=== PATIENT | female | born 1945 | race Caucasian/White ===

== ENCOUNTER 2016-03-03 13:41 | Emergency (ER) | payer MEDICARE, OTHER ==
[~2016-03-03] VITALS: Ht 165.1 cm; Wt 132.0 kg
[~2016-03-03 13:41] MED LIST: ALLO100T PO; ALLP100T PO; AML2.5T PO; AMLO2.5T PO; AMLO5TAB2 PO; APIX2.5T PO; ASP81CT PO; ASPI-983 PO; ATEN-158 PO; ATEN50TA PO; ATN25T PO; CALC0.253 PO; CEFD300C3 PO; CETI10TA17 PO; CHOL10003 PO; CHOL10007 PO; CHOL2000 PO; CITA20TA12 PO; CITA20TA7 PO; CLOP75TA28 PO; CLPD75T; CLPD75T PO; DCS100C PO; ENAL2.5T PO; ENAL5TAB PO; ENLP10T PO; ERGO400C PO; FURO40TA4 PO; GLIM4TAB PO; HUM100VI SQ; HYDR-3004 PO; HYDR-3156 PO; HYDR-3583 PO; HYDR-3812 PO; HYDR-3816 PO; HYDR-707 PO; INSASP10V SC; INSASP10V SQ; INSN1U SQ; INSU100C7 SQ; INSU100V SQ; INSU100V3 SQ; INSU100V31 SQ; INSU100V6 SQ; INSU100V8; ISM30TCR PO; LEVO125T6 PO; LEVO150T6 PO; LVT.15T PO; METO-354 PO; METO5TAB2 PO; MONT10TA24 PO; MTF500T; MTF500T PO; NFMET1000; NIA500ERT PO; NITR0.4T SL; NITR0.4T12 SL; NPH,100V SQ; ONDA8TAB9 PO; PANT40TA3 PO; PNT40TEC PO; RT-ALBUINH IH; SIMV40TA2 PO; SIMV40TA4 PO; SULF1TAB35 PO; VITA1TAB17 PO; WRF5T PO
--- OUTSIDE RECORDS SUMMARY | 2016-03-03 13:47 | XMS REPORT | Continuity of Care Document ---
Author Author [facility] Organization [facility] Address Unknown Phone Unavailable Care Team Providers Care Gas Station Operator Name Role Phone PHIL MONTALVO MD PCP Insurance Providers Payer Name Policy Number Subscriber Name Relationship Wps Medicare [id number] Mae Willson 18 Self / Same As Patient [employer] Ins [id number] Mae Willson 18 Self / Same As Patient Advance Directives Directive Response Recorded Date/Time Advance Directives Yes 07/26/15 4:54pm Health Care Power of Linotype Machinist Apprentice No 07/26/15 4:54pm Organ Donor No 07/26/15 4:54pm Resuscitation Status DNR-Pt Request 07/26/15 4:54pm Chief Complaint and Reason for Visit Chief Complaint CHEST PAIN Reason for Visit Infected sebaceous cyst Intermittent atrial fibrillation Problems Active Problems Medical Problem Onset Date Status CKD (chronic kidney disease) 05/04/2014 Acute Cellulitis of labia majora Unknown Acute Chest pain Unknown Acute Encounter for incision and drainage procedure Unknown Acute Fracture of fifth metatarsal bone of left foot Unknown Acute Infected sebaceous cyst Unknown Acute Intermittent atrial fibrillation Unknown Acute Medications Current Home Medications Medication Dose Units Route Directions Days/Qty Instructions Start Date Docusate Sodium 100 Mg 100 Mg Oral Bedtime 09/29/12 Apixaban 2.5 Mg 2.5 Mg Oral Twice A Day 06/03/15 Cholecalciferol (Vitamin D3) 1,000 Unit 1,000 Unit Oral Daily Allopurinol 100 Mg 100 Mg Oral Twice A Day 07/26/15 Levothyroxine Sodium 150 Mcg 150 Mcg Oral Daily 07/26/15 Pantoprazole Sodium 40 Mg 40 Mg Oral Daily 07/26/15 Calcitriol 0.25 Mcg 0.25 Mcg Oral Every Friday, Friday, Friday, And Friday07/26/15 Montelukast Sodium 10 Mg 10 Mg Oral Bedtime 07/26/15 Atenolol 50 Mg 50 Mg Oral Twice A Day 07/26/15 Enalapril Maleate 5 Mg 2.5 Mg Oral Daily TAKES 1/2 OF A (5 MG) TABLET 07/26/15 Furosemide 40 Mg 40 Mg Oral Every Other Day 07/26/15 Citalopram Hydrobromide 20 Mg 20 Mg Oral Daily 07/26/15 Aspirin 81 Mg 81 Mg Oral Daily 07/26/15 Simvastatin 40 Mg 40 Mg Oral Bedtime 07/26/15 Cetirizine Hcl 10 Mg 10 Mg Oral Bedtime 07/26/15 Insulin Nph Human Isophane 100 Unit/1 Ml 65 Units Sub-Q Twice A Day 07/26/15 Insulin Regular, Human 100 Unit/1 Ml 30 Units Sub-Q Twice A Day 03/11 Vitamin B Complex 1 Each 1 Tab Oral Daily 07/26/15 Albuterol Sulfate 18 Gm 2 Puff Inhalation Four Times Daily as needed for Shortness Of Breath 07/26/15 Nitroglycerin 0.4 Mg 0.4 Mg Sublingual As Needed as needed for Chest Pain 30 take prn chest pain 07/27/15 Past Home Medications Medication Directions Ordered Status Metformin Hcl (Glucophage) 500 Mg Tablet, 04/20/07 Discontinued Insulin Glargine 100 U/Ml Vial, 04/20/07 Discontinued Atenolol 25 Mg Tablet, 50 Mg Oral Twice A Day 04/20/07 Discontinued Enalapril Maleate 10 Mg Tablet, 10 Mg Oral Daily 04/20/07 Discontinued Simvastatin 40 Mg Tablet, 40 Mg Oral Bedtime 04/20/07 Discontinued Clopidogrel Bisulfate 75 Mg Tablet, 04/20/07 Discontinued Aspirin 81 Mg Tablet, 162 Mg Oral Twice A Day 04/20/07 Discontinued Niacin 500 Mg Tablet.sa, 500 Mg Oral Daily 05/03/09 Discontinued Metformin Hcl 1,000 Mg Tablet, 05/03/09 Discontinued Glimepiride 4 Mg Tablet, 4 Mg Oral Twice A Day 05/03/09 Discontinued Insulin Glargine,Hum.rec.anlog 100 Unit/1 Ml Vial, 50 Units Sub-Q Bedtime 12/03 Discontinued Hydralazine Hcl (Apresoline) 25 Mg Tablet, 50 Mg Oral Twice A Day 06/07/10 Discontinued Levothyroxine Sodium (Levothroid) 125 Mcg Tablet, 150 Mg Oral Daily 06/07/10 Discontinued Hum Insulin Nph/Reg Insulin Hm 10 Ml Vial, 30 Units Sub-Q Daily@0800 Discontinued Isosorbide Mononitrate 30 Mg Tab, 30 Mg Oral Daily 06/07/10 Discontinued Acetaminophen/Hydrocodone Bitart 1 Tab Tab, 1 - 2 Ea Oral Q 4 - 6 Hr Prn 12/01 Discontinued Warfarin Sodium 5 Mg Tab, 5 Mg Oral Daily@18 07/01/10 Discontinued Metoclopramide Hcl (Reglan) 5 Mg Tablet, Oral Four Times Daily 09/29/10 Discontinued Nitroglycerin 0.4 Mg Tab.subl, 0.4 Mg Sublingual As Needed 10/16/10 Discontinued Pantoprazole Sodium 40 Mg Tablet.dr, 40 Mg Oral Daily 10/16/10 Discontinued Furosemide (Lasix) 40 Mg Tablet, 40 Mg Oral Every Other Day 10/16/10 Discontinued Insulin Glargine,Hum.rec.anlog 100 Unit/1 Ml Cartridge, 80 Unit Sub-Q Bedtime 05/22/11 Discontinued Cholecalciferol 400 Unit Capsule, 400 Unit Oral Daily 05/22/11 Discontinued Amlodipine Besylate (Norvasc 2.5 Mg) 2.5 Mg Tablet, 5 Mg Oral Daily 05/22/11 Discontinued Insulin Human Lispro 100 U/Ml Vial, 40 Sub-Q Three Times A Day Before Meals 05/22/11 Discontinued Insulin Glargine,Hum.rec.anlog 100 Unit/1 Ml Vial, 100 Unit Sub-Q Bedtime 21/02 Discontinued Ondansetron Hcl 8 Mg/Tab Tab.rapdis, 8 Mg Oral Every 6 Hours as needed Discontinued Acetaminophen/Hydrocodone Bitart 1 Each Tablet, 1 - 2 Each Oral Q 4 - 6 Hr Prn 06/23/11 Discontinued Metformin Hcl (Glucophage) 500 Mg Tablet, 1 Each Oral Twice A Day With Meals 06/24/11 Discontinued Allopurinol 100 Mg Tab, 100 Mg Oral Daily 01/31/12 Discontinued Enalapril Maleate 2.5 Mg Tablet, 2.5 Mg Oral Daily 05/08/12 Discontinued Metoclopramide Hcl 10 Mg Tab, 1 Each Oral Before Meals And At Bedtime Discontinued Atenolol 50 Mg Tab, 50 Mg Oral Twice A Day 09/29/12 Discontinued Hydralazine Hcl (Apresoline) 50 Mg Tablet, 50 Mg Oral Twice A Day 09/29/12 Discontinued Levothyroxine Sodium 150 Mcg Tablet, 150 Mcg Oral Daily 09/29/12 Discontinued Amlodipine Besylate (Norvasc 5 Mg) 5 Mg Tablet, 5 Mg Oral Daily 09/29/12 Discontinued Insulin Nph Human Recom 100 U/Ml Vial, 60 Units Sub-Q Twice A Day 09/29/12 Discontinued Insulin Regular Human Rec 100 U/Ml Vial, 30 Units Sub-Q Twice A Day 09/29/12 Discontinued Cholecalciferol 1,000 Unit Tablet, 1000 Unit Oral Daily 09/29/12 Discontinued Allopurinol 100 Mg Tablet, 100 Mg Oral Twice A Day 09/29/12 Discontinued Calcitriol 0.25 Mcg Capsule, 0.25 Mcg Oral M,W,F,Sa 09/29/12 Discontinued Clopidogrel Bisulfate 75 Mg Tablet, 75 Mg Oral Daily 10/03/12 Discontinued Hydralazine Hcl (Apresoline) 25 Mg Tablet, 25 Mg Oral Twice A Day 05/03/14 Discontinued Insulin Glargine,Hum.rec.anlog 100 Unit/1 Ml Vial, 60 Unit Sub-Q Twice A Day 05/03/14 Discontinued Insulin Lispro 100 Unit/1 Ml Vial, 30 Unit Sub-Q Twice A Day 05/03/14 Discontinued Cholecalciferol 2,000 Unit Capsule, 2000 Unit Oral Daily 05/03/14 Discontinued Clopidogrel Bisulfate 75 Mg Tablet, 75 Mg Oral Daily 05/03/14 Discontinued Citalopram Hydrobromide 20 Mg Tablet, 20 Mg Oral Daily 05/03/14 Discontinued Amlodipine Besylate 2.5 Mg Tab, 2.5 Mg Oral Daily 05/03/14 Discontinued Enalapril Maleate 5 Mg Tablet, 2.5 Mg Oral Daily 05/03/14 Discontinued Insulin Aspart 10 Unit/0.1 Ml Susp, 30 Unit Subcutaneously Twice A Day Discontinued Hydrocodone/Acetaminophen 1 Each Tablet, 1 Each Oral Every 4HRS as needed for Pain 10/22/14 Discontinued Sulfamethoxazole/Trimethoprim 1 Each Tablet, 1 Each Oral Twice A Day Discontinued Hydrocodone/Acetaminophen 1 Each Tablet, 1 Each Oral Every 4HRS as needed for Pain 06/03/15 Discontinued Social History Social History Problem Response Recorded Date/Time Alcohol Use Occasionally Uses 07/26/2015 7:40pm Recreational Drug Use No 07/26/2015 4:56pm Recent Foreign Travel No 07/26/2015 4:59pm Recent Infectious Disease Exposure No 07/26/2015 4:56pm Sexually Transmitted Disease No 07/26/2015 4:56pm Smoking Status Former Smoker 07/26/2015 7:40pm Do you dip or chew tobacco? No 07/26/2015 1:49pm Query Response Start Date Stop Date Smoking Status Former Smoker 05/04/2011 Hospital Discharge Instructions Patient Instructions Physician Instructions Prescription: Transmitted to Pharmacy Resume Normal Activity: Yes Discharge Diet: ADA Diet, Low Fat/Low Cholesterol Diet for 24 Hours: No Alcohol, No [place] Foods Drink 6-8 Glasses of Fluid/Day: Yes Symptoms to Reoprt to : Appetite Changes, Pain Increased, Fever Over 101 Degrees F, Pain/Pressure in Chest, Heart Beat Irreg/Pounding, Pain/Pressure in Shoulder, Diarrhea(Persistant), Shortness of Breath For Problems or Questions: Contact Your Physician, Go to Emergency Room Plan of Care Discharge Date 07/27/15 4:55pm Disposition 01 HOME, SELF-CARE Instructions/Education Provided Chest Pain (DC) Prescriptions See Medication Section Referrals [facility] (Unspecified) - 2 Weeks Reason(s) for Referral: Chest pain Intermittent atrial fibrillation PHIL MONTALVO MD (Unspecified) - 08/09/15 Reason(s) for Referral: Follow up appointment with Dr. Montalvo on 08-09-15 @ 1:15pm KE[facility] HERNANDEZ [facility] (Unspecified) - 08/10/15 Address: [address] [place] [address] [address] [place] [address] Reason(s) for Referral: Follow up appointment on 08-10-15 @ 3:50pm Care Plan and Goals See Discharge Instructions Section Functional Status Query Response Date Recorded Patient Orientation Person Place Time Situation July 27, 2015 5:19pm Patient Orientation Person Place Time Situation July 27, 2015 5:19pm Comprehension Ability Understands Concepts July 27, 2015 8:00am Allergies, Adverse Reactions, Alerts Allergen Type Severity Reaction Status Last Updated Penicillins ([id number]) Allergy Unknown Active 05/14/05 Immunizations Name Given Type Date of Pneumonia Vaccine 12/03/13 Historical Date of Influenza Vaccine 12/03/13 Historical Vital Signs Acute Vital Signs Vital Response Date/Time Temperature (Fahrenheit) 97.1 degrees F (97.6 - 99.5) 07/27/2015 4:55pm Temperature (Calculated Celsius) 36.34292 degrees C (36.4 - 37.5) 07/27/2015 3:51pm Temperature Source Tympanic 07/27/2015 4:55pm Pulse Rate (adult) 56 bpm (60 - 90) 07/27/2015 4:55pm Respiratory Rate 16 bpm (12 - 24) 07/27/2015 4:55pm O2 Sat by Pulse Oximetry 97 % (88 - 100) 07/27/2015 4:55pm Blood Pressure 131/73 mm Hg 07/27/2015 4:55pm Blood Pressure Mean 92 mm Hg 07/27/2015 3:51pm Pain Pain Intensity 0 07/27/2015 3:51pm Height (Feet) 5 feet 07/27/2015 8:59am Height (Inches) 5.00 inches 07/27/2015 8:59am Height (Calculated Centimeters) 165.521890 cm 07/27/2015 8:59am Weight (Pounds) 283 pounds 07/27/2015 8:59am Weight (Ounces) 0.0 oz 07/27/2015 8:59am Weight (Calculated Grams) 171286.642 gm 07/27/2015 8:59am Weight (Calculated Kilograms) 128.372638 kilograms 07/27/2015 8:59am Calculated BMI 47.1 07/27/2015 8:59am Results Pending Laboratory Results Test Name Collection Date/Time Procedures Procedure Status Date Provider(s) Cardiac event recording Completed 04/13/15 SANAM BROWN Tracing only of electrocardiogram Completed 07/26/15 TINA HUNTER DO Tracing only of electrocardiogram Completed 07/26/15 TINA HUNTER DO Color Doppler echocardiography Active 07/26/15 KEARA HERNANDEZ MD FACP [facility] Tracing only of electrocardiogram Active 07/27/15 KEARA HERNANDEZ MD [facility] Encounters Encounter Location Arrival/Admit Date Discharge/Depart Date Attending Provider Discharged Inpatient (obs) [facility] 07/26/15 3:35pm 4:55pm PHIL MONTALVO MD Discharged Recurring [facility] 04/13/15 1:04pm 11:59pm SANAM BROWN Recent Diagnosis Infected sebaceous cyst Intermittent atrial fibrillation
--- NOTE | 2016-03-03 14:48 | ED Lower Extremity ---
General Chief Complaint: Lower Extremity Stated Complaint: R KNEE INJ/PAIN Nursing Triage Note: Pt fell at home on Friday on her R knee. c/o R knee pain but can bend knee and walk. Nursing Sepsis Screen: No Definite Risk Source: patient Exam Limitations: no limitations History of Present Illness Time seen by provider: 14:48 Initial Comments 70 yo female patient presents to the ED with c/o rt knee pain after falling Friday. Patient reports hitting her rt knee on the dresser and landed directly onto the rt knee. denies hitting her head, LOC, neck pain, or back pain. Location Injury Occurred: home Onset: other (02/27/16) Pain/Injury Location: right knee Method of Injury: fell Modifying Factors: Worse With Movement Allergies and Home Medications Allergies Coded Allergies: Penicillins (Verified Allergy, Unknown, 05/14/05) Home Medications Albuterol Sulfate 18 Gm Hfa.aer.ad 2 PUFF IH QID PRN PRN SHORTNESS OF BREATH ( Reported) Allopurinol 100 Mg Tablet 100 MG PO BID (Reported) Apixaban 2.5 Mg Tablet 2.5 MG PO BID (Reported) Aspirin 81 Mg Tablet.dr 81 MG PO DAILY (Reported) Atenolol 50 Mg Tablet 50 MG PO BID (Reported) Calcitriol 0.25 Mcg Capsule 0.25 MCG PO We (Reported) Cefdinir 300 Mg Capsule #14 300 MG PO BID Prescribed by: SARAH ARMSTRONG on 01/31/161908 Cetirizine HCl 10 Mg Tablet 10 MG PO HS (Reported) Cholecalciferol (Vitamin D3) 1,000 Unit Capsule 1,000 UNIT PO DAILY (Reported) Citalopram Hydrobromide 20 Mg Tablet 20 MG PO DAILY (Reported) Docusate Sodium 100 Mg Capsule 100 MG PO HS (Reported) Enalapril Maleate 5 Mg Tablet 2.5 MG PO DAILY (Reported) TAKES 1/2 OF A (5 MG) TABLET Furosemide 40 Mg Tablet 40 MG PO EVERY OTHER DAY (Reported) Insulin NPH Human Isophane 100 Unit/1 Ml Vial 65 UNITS SQ BID (Reported) Insulin Regular, Human 100 Unit/1 Ml Vial 30 UNITS SQ BID (Reported) Levothyroxine Sodium 150 Mcg Tablet 150 MCG PO DAILY (Reported) Montelukast Sodium 10 Mg Tablet 10 MG PO HS (Reported) Nitroglycerin 0.4 Mg Tab.subl #30 0.4 MG SL PRN PRN PRN chest pain take prn chest pain Prescribed by: PHIL MONTALVO on 07/27/15 1529 Oxycodone HCl/Acetaminophen 1 Each Tablet #14 1 EACH PO Q4H PRN PRN PAIN Prescribed by: JEREL CHURCHILL on 03/03/16 1549 Pantoprazole Sodium 40 Mg Tablet.dr 40 MG PO DAILY (Reported) Simvastatin 40 Mg Tablet 40 MG PO HS (Reported) Vitamin B Complex 1 Each Tablet 1 TAB PO DAILY (Reported) Constitutional: no symptoms reported Respiratory: no symptoms reported Cardiovascular: no symptoms reported Gastrointestinal: no symptoms reported Musculoskeletal: see HPINo back pain, joint pain (rt knee) joint swelling ( rt knee)No neck pain Skin: No change in color Psychiatric/Neurological: Denies Numbness, Denies Paresthesia, Denies Tingling , Denies Weakness All Other Systems Reviewed Negative Unless Noted: Yes (Negative excepted noted.) Past Zkxtzdf-Fdmojh-Mpxtwk Hx Patient Social History Alcohol Use: Rarely Uses Recreational Drug Use: No Smoking Status: Former Smoker Type Used: Cigarettes Former Smoker/When Quit: May 04, 2011 2nd Hand Smoke Exposure: No Recent Foreign Travel: No Contact w/Someone Who Travel: No Recent Infectious Disease Expo: No Recent Hopitalizations: No Physical Abuse Screen: No Sexual Abuse: No Immunizations Up To Date Date of Pneumonia Vaccine: Dec 03, 2013 Date of Influenza Vaccine: Dec 04, 2015 Seasonal Allergies Seasonal Allergies: No Surgeries HX Surgeries: Yes Surgeries: Adenoidectomy, Appendectomy, Cardiac, Coronary Stent, Gallbladder, Hysterectomy, Joint Replacement, Oophorectomy, Orthopedic, Thyroidectomy, Tonsillectomy, Vascular Surgery Respiratory Hx Respiratory Disorders: Yes (SLEEP APNEA, O2 AT 2L/NC CONTINUOUSLY) Respiratory Disorders: Sleep Apnea, COPD Cardiovascular Hx Cardiac Disorders: Yes Cardiac Disorders: Atrial Fibrillation, Chronic Edema/Swelling, Coronary Artery Disease, Heart Attack, High Cholesterol, Hypertension, Peripheral Vascular Neurological Hx Neurological Disorders: No Reproductive System Hx Reproductive Disorders: No Sexually Transmitted Disease: No Genitourinary Hx Genitourinary Disorders: Yes Genitourinary Disorders: Renal Failure Gastrointestinal Hx Gastrointestinal Disorders: Yes Gastrointestinal Disorders: Ulcer Musculoskeletal Hx Musculoskeletal Disorders: Yes Musculoskeletal Disorders: Arthritis Endocrine Hx Endocrine Disorders: Yes (S/P THYROIDECTOMY) Endocrine Disorders: Diabetes, Insulin dep, Hypothyroidsim HEENT HX ENT Disorders: No Cancer Hx Cancer: No Psychosocial Hx Psychiatric Problems: Yes Behavioral Health Disorders: Anxiety, Depression Integumentary HX Skin/Integumentary Disorder: No Blood Transfusions Hx Blood Disorders: No Adverse Reaction to a Blood Tr: No Reviewed Nursing Assessment Reviewed/Agree w Nursing PMH: Yes Family Medical History Significant Family History: Hypertension Physical Exam Vital Signs Vital Sign - Last 12Hours 03/03/16 14:20 Temp 98.7 Pulse 94 Resp 22 B/P 117/60 Pulse Ox 92 O2 Delivery Nasal Cannula O2 Flow Rate 2 Capillary Refill : Less Than 3 Seconds General Appearance: WD/WN no apparent distress Cardiovascular: normal peripheral pulses Hips: bilateral hip non-tender, bilateral hip normal inspection, bilateral hip normal range of motion, bilateral hip no evidence of injury Legs: bilateral leg non-tender, bilateral leg normal inspection, bilateral leg normal range of motion, bilateral leg no evidence of injury Knees: left knee non-tender, bilateral knee normal inspection, bilateral knee normal range of motion, bilateral knee no evidence of injury, right knee bone tenderness (anterior knee ttp.), right knee pain, right knee soft tissue tenderness, right knee other (well healed surgical scar of the anterior knee consistent with PSH) Ankles: bilateral ankle non-tender, bilateral ankle normal inspection, bilateral ankle normal range of motion, bilateral ankle no evidence of injury Neurologic/Tendon: normal sensation normal motor functions normal tendon functions responds to pain no evidence tendon injury Neurologic/Psychiatric: no motor/sensory deficits alert normal mood/affect oriented x 3 Skin: normal color warm/dry Progress/Results/Core Measures Results/Orders My Orders Orders-JEREL CHURCHILL Knee, Right, 4 Views Or > (03/03/16 14:52) Vital Signs/I&O Vital Sign - Last 12Hours 03/03/16 03/03/16 14:20 16:06 Temp 98.7 98.7 Pulse 94 94 Resp 22 22 B/P 117/60 Pulse Ox 92 92 O2 Delivery Nasal Cannula O2 Flow Rate 2 2 Blood Pressure Mean: 79 Diagnostic Imaging Diagonstic Imaging: Xray Plain Films/CT/US/NM/MRI: knee (rt) Comments FINDINGS: Well-seated arthroplasty without fracture, dislocation or loosening. There is no joint effusion. No osseous lesion identified. Atherosclerosis is present. IMPRESSION: No fracture or dislocation. Dictated on workstation # [id number] Reviewed: Reviewed by Me (radiology report reviewed by me.) Departure Communication Progress Notes Diagnostic findings discussed with the patient. Plan for discharge home. Patient states she is driving home and will only take pain medicine when she gets home. Impression Impression: Primary Impression: Contusion of knee Qualified Code: S80.01XA - Contusion of right knee, initial encounter Additional Impression: Fall Disposition: HOME, SELF-CARE Condition: Improved Departure-Patient Inst. Decision time for Depature: 15:49 Referrals: PHIL MONTALVO MD (PCP/Family) Primary Care Physician Patient Instructions: Contusion (DC) Add. Discharge Instructions: All discharge instructions reviewed with patient and/or family. Voiced understanding. Medications as instructed. Do not take hydrocodone with oxycodone. Elevate the rt knee on pillows. ice packs or heating pads as needed for pain. Follow-up with your family practitioner if no improvement in symptoms. Return to the emergency department for worsened symptoms or any other concerns. Scripts Oxycodone HCl/Acetaminophen (Percocet 5-325 mg Tablet)1 Each Tablet1 Each PO Q4H PRN PAIN #14 TAB Ref 0 Prov:JEREL CHURCHILL 03/03/16 JEREL CHURCHILL Mar 03, 2016 14:48
--- NOTE | 2016-03-03 15:23 | Diagnostic Imaging Report ---
INDICATION: Right knee pain, arthroplasty. COMPARISON: None. EXAMINATION: Four views of the right knee were obtained. FINDINGS: Well-seated arthroplasty without fracture, dislocation or loosening. There is no joint effusion. No osseous lesion identified. Atherosclerosis is present. IMPRESSION: No fracture or dislocation. Dictated by: Dictated on workstation # [id number]
[2016-03-03] MEDS ORDERED: OXYC-197 PO (15:49)
[2016-03-03 16:06] VITALS: BP 117/60
== END 2016-03-03 16:06 | disposition home or self-care (01) ==
LOC: EDUNIT# 13:41 → ER 13:42
DX: S80.01XA Contusion of right knee, initial encounter (principal); E11.9 Type 2 diabetes mellitus without complications; Z79.4 Long term (current) use of insulin; Z79.82 Long term (current) use of aspirin; W01.0XXA Fall on same level from slipping, tripping and stumbling without subsequent striking against object, initial encounter; Y92.013 Bedroom of single-family (private) house as the place of occurrence of the external cause; Y99.8 Other external cause status
CPT/HCPCS: 73564

== ENCOUNTER → 2016-03-18 | Outpatient (CLI) | payer MEDICARE, OTHER ==
[~2016-03-18] MED LIST changes: +CARV3.122 PO; +CLOT15CR6 TOP; +CYAN10006 PO; +DILT180C54 PO; +INSU100V31 SC; +OXYC-197 PO; +WARF-48 PO
--- OUTSIDE RECORDS SUMMARY | 2016-03-18 08:27 | XMS REPORT | Continuity of Care Document ---
Author Author [facility] Organization [facility] Address Unknown Phone Unavailable Care Team Providers Care Life Skills Educator Name Role Phone PHIL MONTALVO MD PCP Insurance Providers Payer Name Policy Number Subscriber Name Relationship Wps Medicare [id number] Mae Willson 18 Self / Same As Patient [employer] Ins [id number] Mae Willson 18 Self / Same As Patient Advance Directives Directive Response Recorded Date/Time Advance Directives Yes 07/26/15 4:54pm Health Care Power of Gum Rolling Machine Tender No 07/26/15 4:54pm Organ Donor No 07/26/15 [...] Diet for 24 Hours: No Alcohol, No [place] Foods Drink 6-8 Glasses of Fluid/Day: Yes [...] (DC) Prescriptions See Medication Section Referrals [facility] (Unspecified) - 2 Weeks Reason(s) for Referral: Chest pain Intermittent atrial fibrillation PHIL MONTALVO MD (Unspecified) - 08/09/15 Reason(s) for Referral: Follow up appointment with Dr. Montalvo on 08-09-15 @ 1:15pm [facility] (Unspecified) - 08/10/15 Address: [address] [place] [address] [address] [place] [address] Reason(s) for Referral: Follow up [...] Type Severity Reaction Status Last Updated Penicillins ([id number]) Allergy Unknown Active 05/14/05 Immunizations Name Given Type Date of Pneumonia Vaccine 12/03/13 Historical Date of Influenza Vaccine 12/03/13 Historical Vital Signs Acute Vital Signs Vital Response Date/Time Temperature (Fahrenheit) 97.1 degrees F (97.6 - 99.5) 07/27/2015 4:55pm Temperature (Calculated Celsius) 36.81907 degrees C (36.4 - 37.5) 07/27/2015 3:51pm [...] 5.00 inches 07/27/2015 8:59am Height (Calculated Centimeters) 165.090770 cm 07/27/2015 8:59am Weight (Pounds) 283 pounds 07/27/2015 8:59am Weight (Ounces) 0.0 oz 07/27/2015 8:59am Weight (Calculated Grams) 796302.642 gm 07/27/2015 8:59am Weight (Calculated Kilograms) 128.696173 kilograms 07/27/2015 8:59am Calculated BMI 47.1 07/27/2015 [...] of electrocardiogram Active 07/27/15 KEARA HERNANDEZ MD [facility] Encounters Encounter Location Arrival/Admit Date Discharge/Depart Date Attending Provider Discharged Inpatient (obs) [facility] 07/26/15 3:35pm 4:55pm PHIL MONTALVO MD Discharged Recurring Via [facility] 04/13/15 1:04pm 11:59pm SANAM BROWN Recent Diagnosis Infected sebaceous cyst Intermittent atrial fibrillation
--- NOTE | 2016-03-18 09:15 | Diagnostic Imaging Report ---
PROCEDURE: CT right lower extremity without contrast. TECHNIQUE: Axially acquired CT was obtained through the right lower extremity without intravenous contrast. Coronal and sagittal reformations were also performed. INDICATION: Knee pain after fall. COMPARISON: Right knee radiographs of 03/03/2016. FINDINGS: Cemented right total knee arthroplasty and patellar resurfacing. The components are in good position. Specifically, there is no dislocation of the polyethylene spacer in the tibiofibular compartment. Endobutton on the patella is not well visualized due to streak artifact from the femoral component, though it appears to be in good position. No periprosthetic lucencies to indicate loosening. No acute fracture. The distal quadriceps is intact. Patellar tendon appears intact by CT. No significant knee joint effusion. Mild fatty atrophy of the distal semimembranosus, likely from disuse. Subcutaneous reticulations in the anterior aspect of the knee are likely due to edema and/or contusion. IMPRESSION: 1. Right total knee arthroplasty and patella resurfacing. No evidence of acute complication. Specifically, no periprosthetic fracture. 2. Extensor mechanism is intact by CT. 3. Subcutaneous reticulations in the anterior knee may relate to reactive edema and/or contusion from recent injury. Dictated by: Dictated on workstation # [id number]
== END ==
LOC: RAD 08:22
PROVIDERS: ATTEND Family Medicine
DX: M25.561 Pain in right knee (principal)
CPT/HCPCS: 73700

== ENCOUNTER 2016-03-26 08:04 | Inpatient (IN) | payer MEDICARE, OTHER ==
[~2016-03-26] VITALS: Ht 165.1 cm; Wt 132.7 kg
[2016-03-26] VITALS (10 sets, daily range): BP systolic 91–159; BP diastolic 33–78
[~2016-03-26 08:04] MED LIST changes: -CARV3.122 PO; -CLOT15CR6 TOP; -CYAN10006 PO; -DILT180C54 PO; -INSU100V31 SC; -WARF-48 PO
--- OUTSIDE RECORDS SUMMARY | 2016-03-26 08:07 | XMS REPORT | Continuity of Care Document ---
Author Author [facility] Organization [facility] Address Unknown Phone Unavailable Care Team Providers Care Electronic Technologist Name Role Phone PHIL MONTALVO MD PCP Insurance Providers Payer Name Policy Number Subscriber Name Relationship Wps Medicare [id number] Mae Willson 18 Self / Same As Patient [employer] [id number] Mae Willson 19 Self / Same As Patient Advance Directives Directive Response Recorded Date/Time Advance Directives Yes 07/26/15 4:54pm Health Care Power of Head Pastry Chef No 07/26/15 4:54pm Organ Donor No 07/26/15 [...] Diet for 24 Hours: No Alcohol, No [employer] Drink 6-8 Glasses of Fluid/Day: Yes [...] (DC) Prescriptions See Medication Section Referrals [facility] (Unspecified) - 2 Weeks Reason(s) for Referral: Chest pain Intermittent atrial fibrillation PHIL MONTALVO MD (Unspecified) - 08/09/15 Reason(s) for Referral: Follow up appointment with Dr. Montalvo on 08-09-15 @ 1:15pm KEARA HERNANDEZ [facility] (Unspecified) - 08/10/15 Address: [address] [place] [address] [address] [place] [address] Reason(s) for Referral: Follow up [...] Type Severity Reaction Status Last Updated Penicillins ([id number]) Allergy Unknown Active 05/14/05 Immunizations Name Given Type Date of Pneumonia Vaccine 12/03/13 Historical Date of Influenza Vaccine 12/03/13 Historical Vital Signs Acute Vital Signs Vital Response Date/Time Temperature (Fahrenheit) 97.1 degrees F (97.6 - 99.5) 07/27/2015 4:55pm Temperature (Calculated Celsius) 36.76594 degrees C (36.4 - 37.5) 07/27/2015 3:51pm [...] 5.00 inches 07/27/2015 8:59am Height (Calculated Centimeters) 165.978249 cm 07/27/2015 8:59am Weight (Pounds) 283 pounds 07/27/2015 8:59am Weight (Ounces) 0.0 oz 07/27/2015 8:59am Weight (Calculated Grams) 903506.642 gm 07/27/2015 8:59am Weight (Calculated Kilograms) 128.026543 kilograms 07/27/2015 8:59am Calculated BMI 47.1 07/27/2015 [...] of electrocardiogram Active 07/27/15 KEARA HERNANDEZ MD [facility] Encounters Encounter Location Arrival/Admit Date Discharge/Depart Date Attending Provider Discharged Inpatient (obs) [facility] 07/26/15 3:35pm 4:55pm PHIL MONTALVO MD Discharged Recurring [facility] 04/13/15 1:04pm 11:59pm SANAM BROWN Recent Diagnosis Infected sebaceous cyst Intermittent atrial fibrillation
--- OUTSIDE RECORDS SUMMARY | 2016-03-26 08:09 | XMS REPORT | Continuity of Care Document ---
Author Author [facility] Organization [facility] Address Unknown Phone Unavailable Care Team Providers Care Software Technical Lead Name Role Phone PHIL MONTALVO MD PCP Insurance Providers Payer Name Policy Number Subscriber Name Relationship Wps Medicare [id number] Mae Willson 19 Self / Same As Patient [employer] [id number] Mae Willson 19 Self / Same As Patient Advance Directives Directive Response Recorded Date/Time Advance Directives Yes 07/26/15 4:54pm Health Care Power of Grain Roaster No 07/26/15 4:54pm Organ Donor No 07/26/15 [...] Diet for 24 Hours: No Alcohol, No [employer] Drink 6-8 Glasses of Fluid/Day: Yes [...] (DC) Prescriptions See Medication Section Referrals [facility] (Unspecified) - 2 Weeks Reason(s) for Referral: Chest pain Intermittent atrial fibrillation PHIL MONTALVO MD (Unspecified) - 08/09/15 Reason(s) for Referral: Follow up appointment with Dr. Montalvo on 08-09-15 @ 1:15pm [facility] HER[facility] (Unspecified) - 08/10/15 Address: [address] [place] [address] [address] [place] [address] Reason(s) for Referral: Follow up [...] Type Severity Reaction Status Last Updated Penicillins ([id number]) Allergy Unknown Active 05/14/05 Immunizations Name Given Type Date of Pneumonia Vaccine 12/03/13 Historical Date of Influenza Vaccine 12/03/13 Historical Vital Signs Acute Vital Signs Vital Response Date/Time Temperature (Fahrenheit) 97.1 degrees F (97.6 - 99.5) 07/27/2015 4:55pm Temperature (Calculated Celsius) 36.01153 degrees C (36.4 - 37.5) 07/27/2015 3:51pm [...] 5.00 inches 07/27/2015 8:59am Height (Calculated Centimeters) 165.588771 cm 07/27/2015 8:59am Weight (Pounds) 283 pounds 07/27/2015 8:59am Weight (Ounces) 0.0 oz 07/27/2015 8:59am Weight (Calculated Grams) 887420.642 gm 07/27/2015 8:59am Weight (Calculated Kilograms) 128.792313 kilograms 07/27/2015 8:59am Calculated BMI 47.1 07/27/2015 [...] of electrocardiogram Active 07/27/15 KEARA HERNANDEZ MD [facility] Encounters Encounter Location Arrival/Admit Date Discharge/Depart Date Attending Provider Discharged Inpatient (obs) [facility] 07/26/15 3:35pm 4:55pm PHIL MONTALVO MD Discharged Recurring [facility] 04/13/15 1:04pm 11:59pm SANAM BROWN Recent Diagnosis Infected sebaceous cyst Intermittent atrial fibrillation
[2016-03-26] MEDS ORDERED: LIDOCAINE 1% INJ 20 ML (XYLOCAINE) VIAL ONE (08:23)
[2016-03-26] MEDS ORDERED: HEParin (CATH LAB) 0 ML IV ONE (08:24)
[2016-03-26] MEDS: NS IV 1000 ML 1,000 ML IV SCH ×2 (08:30→23:45)
[2016-03-26 09:01] LABS: INR 1.6 (0.8-1.4)
[2016-03-26 09:11] LABS: ALBUMIN 3.7 G/DL (3.2-4.5); BILIRUBIN,TOTAL 0.7 MG/DL (0.1-1.0); CREATININE SERUM 2.03 MG/DL (0.60-1.30); POTASSIUM 4.3 MMOL/L (3.6-5.0); TOTAL PROTEIN 7.2 G/DL (6.4-8.2)
[2016-03-26 09:20] LABS: MEAN PLATELET VOLUME 9.1 FL (7.4-10.4); RED BLOOD COUNT 2.81 10^6/uL (4.35-5.85); RED CELL DISTRIBUTION WIDTH 21.4 % (10.0-14.5)
--- NOTE | 2016-03-26 10:04 | Cardiology History & Physical ---
HPI-Cardiology Cardiology H&P Date of Admission 03-26-16 Primary Care Physician Ronda Mclaughlin MD Attending Physician Ivett Ludwig MD FACP [facility] Consulting Physician [facility] Ms. 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 She came in today for a scheduled cardiac cath d/t c/o increasing dyspnea. CBC drawn today showed severe anemia. Cardiac cath has been cancelled. She continues to report dyspnea. No c/o CP, palpitations, syncope or near syncope. No c/o LE edema today. She does not report any blood in her stools or dark, tarry bowel movements. She does report frequent nose bleeds which can last for up to 20 minutes. Review of Systems-Cardiology Review of Systems Constitutional: As described under HPI Eyes: No blurred vision, No drainage, No pain, No vision change Ears/Nose/Throat: No ear discharge, No ear pain, No nasal drainage, No ulcerations, other (frequent nose bleeds) Respiratory: As described under HPI Cardiovascular: As described under HPI Gastrointestinal: No constipation, No diarrhea, No nausea, No vomiting, No stool coloration changes Genitourinary: No dysuria, No discharge, No frequency, No hematuria, No urgency Skin: No rash, No skin related problems, No ulcerations Psychiatric/Neurological: No anxiety, No depression, No focal weakness, No seizure, No syncope Hematologic: anemia easy bruisingNo bleeding abnormalities UUS-Yeqgex-Faexhi Hx Patient Social History Smoking Status: Former Smoker Former smoker/When Quit: May 04, 2011 Type Used: Cigarettes 2nd Hand Smoke Exposure: No Recent Foreign Travel: No Recent Infectious Disease Expo: No Immunizations Up To Date Date of Pneumonia Vaccine: Dec 03, 2013 Date of Influenza Vaccine: Dec 04, 2015 Past Medical History PMH As described under Assessment. Family Medical History Family Medical History: She does not report family h/o early CAD Allergies and Home Medications Allergies Coded Allergies: Penicillins (Verified Allergy, Unknown, 05/14/05) Home Medications Albuterol Sulfate 18 Gm Hfa.aer.ad 2 PUFF IH QID PRN PRN SHORTNESS OF BREATH ( Reported) Allopurinol 100 Mg Tablet 100 MG PO DAILY (Reported) Aspirin 81 Mg Tablet.dr 81 MG PO HS (Reported) Calcitriol 0.25 Mcg Capsule 0.25 MCG PO MoWeFrSa (Reported) Cetirizine HCl 10 Mg Tablet 10 MG PO HS (Reported) Cholecalciferol (Vitamin D3) 1,000 Unit Capsule 1,000 UNIT PO DAILY (Reported) Citalopram Hydrobromide 20 Mg Tablet 20 MG PO DAILY (Reported) Clotrimazole/Betamethasone Dip 15 Gm Cream..g. TOP DAILY PRN PRN RASH (Reported ) Cyanocobalamin (Vitamin B-12) 1,000 Mcg Tablet 1,000 MCG PO DAILY (Reported) Diltiazem HCl 180 Mg Cap.er.24h 180 MG PO DAILY (Reported) Docusate Sodium 100 Mg Capsule 100 MG PO HS (Reported) Furosemide 40 Mg Tablet 40 MG PO DAILY (Reported) Insulin NPH Human Isophane 100 Unit/1 Ml Vial 65 UNITS SQ BID (Reported) Insulin Regular, Human 100 Unit/1 Ml Vial 35 UNITS SQ DAILY (Reported) Insulin Regular, Human 100 Unit/1 Ml Vial 30 UNIT SC HS (Reported) Levothyroxine Sodium 150 Mcg Tablet 150 MCG PO DAILY (Reported) Montelukast Sodium 10 Mg Tablet 10 MG PO HS (Reported) Nitroglycerin 0.4 Mg Tab.subl 0.4 MG SL UD PRN PRN CHEST PAIN (Reported) Oxycodone HCl/Acetaminophen 1 Each Tablet 1 TAB PO Q4H PRN PRN PAIN (Reported) Pantoprazole Sodium 40 Mg Tablet.dr 40 MG PO DAILY (Reported) Simvastatin 40 Mg Tablet 20 MG PO HS (Reported) Vitamin B Complex 1 Each Tablet 1 TAB PO DAILY (Reported) Warfarin Sodium 5 Mg Tablet 5 MG PO MoTuFrSa (Reported) Warfarin Sodium 5 Mg Tablet 2.5 MG PO SuWeTh (Reported) TAKES 1/2 (5MG) TABLET Physical Exam-Cardiology Physical Exam Vital Signs/I&O Vital Sign - Last 12Hours 03/26/16 03/26/16 03/26/16 03/26/16 08:49 10:38 10:39 10:53 Temp 98.5 96.3 97.1 Pulse 70 70 65 66 Resp 24 24 24 B/P 92/33 91/45 116/72 Pulse Ox 88 92 91 O2 Delivery Nasal Cannula O2 Flow Rate 3.00 3.00 3.00 Capillary Refill : Constitutional: appears stated ageNo apparent distress, well-developed well- nourished HEENT: PERRLNo discharge, hearing is well preserved oral hygience is goodNo ulceration, No xanthelasmas are seen Neck: No carotid bruit, carotid pulses are 2 + bilaterally Respiratory: No accessory muscle use, No respiratory distress, chest expansion is symmetric chest is bilaterally symmetric other (good air entry) Cardiovascular: irregularly irregularNo JVD, S1 and S2 systolic murmur Gastrointestinal: No tender, soft roundNo spleenomegaly Extremities: No clubbing, No cyanosis, No significant edema Neurologic/Psychiatric: alert oriented x 3 power is 5/5 both on sides Skin: pallorNo rash, No ulcerations Data Review Labs Laboratory Tests 03/26/16 08:40: Activated Partial Thromboplast Time 40H, Alanine Aminotransferase (ALT/SGPT) 10 , Albumin 3.7, Alkaline Phosphatase 73, Anion Gap 14, Aspartate Amino Transf ( AST/SGOT) 22, BUN/Creatinine Ratio 22, Blood Urea Nitrogen 44H, Calcium Level 9.0, Carbon Dioxide Level 24, Chloride Level 105, Cholesterol Level 118, Creatinine 2.03H, Estimat Glomerular Filtration Rate 24, Glucose Level 105, HDL Cholesterol 38L, INR Comment 1.6H, LDL Cholesterol Direct 62, Potassium Level 4.3, Prothrombin Time 19.0H, Sodium Level 143, Total Bilirubin 0.7, Total Protein 7.2, Triglycerides Level 109, VLDL Cholesterol 22 03/26/16 09:12: Hematocrit 24L, Hemoglobin 6.6*L, Mean Corpuscular Hemoglobin 23L, Mean Corpuscular Hemoglobin Concent 28L, Mean Corpuscular Volume 85, Mean Platelet Volume 9.1, Platelet Count 363, Red Blood Count 2.81L, Red Cell Distribution Width 21.4H, White Blood Count 16.0H 03/26/16 12:00: Glucometer 110 A/P-Cardiology Assessment/Admission Diagnosis Severe anemia of undetermined etiology - can not exclude blood loss Increasing exertional shortness of breath Episode of near syncope likely d/t orthostatic hypotension r/t medications - no further episodes since discontinuation of antihypertensives PAF with a controlled rate per 30 day event monitor transmissions of March 2015 COPD Echocardiogram from July 2015 showed LVEF 65%. Mild TR. Mitral valve sclerosis and aortic valve sclerosis, mild, without evidence of significant valvular stenosis. PASP approx 30mmHg H/o intestinal angina, resolved following PCI to sup mesenteric and celiac arteries in Sep 2012 CKD stage IV. Chronic renal failure, managed by her geologist petroleum Dr Hastings H/o VERENICE. Has had renal artery stents in 2008. Most recently had right renal artery stenting by Dr Foster in Sep 2012 CAD. POBA of RPL in 04/29, NAGA of RCA in 07/29. Last cath in April 2014 showed diffuse mild to moderate disease. There is a patent stent in the mid RCA and distal to the stent, there is 50% stenosis in the RCA. The rest of the coronary vessels have diffuse mild to mod disease. Elevated LVEDP MPI of 6-2-16 showed no evidence of significant myocardial infarction or ischmeia. Normal regional wall motion. LVEF 55%. Normal LV cavity size Hypertension DM II, insulin requiring Sleep apnea, treated with CPAP Hypothyroidism, being treated H/o gout H/o left subclavian artery stenosis and retrograde flow in left vertebral artery H/o tobacco use; quit in Dec 2010 PAD, h/o aortobifem surgery in 1994 Carotid art stenoses, asymptomatic, bilat internal carotid artery stenoses of 60 -79% R ICA and 5-60% L ICA per November 2015 u/s. Chronic leg swelling due to venous insufficiency, stable Obesity with BMI approx 46 POLI of 10-15-15 showed low normal POLI, bilat Discussion and Recomendations Severe anemia of undetermined etiology, can not exclude blood loss. We will admit to [facility]. We will transfuse [address] Mclaughlin. Occult stools. We will cancel cardiac cath for now until anemia is fully evaluated and treated. Continue home medications. Monitor lab closely. Further recommendations will be based on her hospital course. We will hold OAC for now until source of blood loss has been determined and treated. This H&P is being scribed by Ev Beal APRN on behalf of Dr. Ludwig after discussion regarding plan of care. Physician Assessment Physician Assessment Lungs: fair entry, diminished at the bases Cor: reg A&R * As documented in our note above * Complex management due to multiple comorbidities * I had a detailed discussion with her regarding the newest finding (severe anemia) * Blood transfusion today * Cath canceled * I called Dr Mclaughlin and have requested a Medical Consult SANAM BEAL Mar 26, 2016 10:03 IVETT LUDWIG MD FACP [facility] Mar 26, 2016 12:36
[2016-03-26] MEDS ORDERED: PANTOPRAZOLE 40 MG/10 ML (PROTONIX) VIAL IV NR (10:15)
[2016-03-26] MEDS ORDERED: CARV3.122 PO (10:30)
[2016-03-26] MEDS ORDERED: CLOT15CR6 TOP (10:45)
[2016-03-26] MEDS ORDERED: OXYC-197 PO (10:45)
[2016-03-26] MEDS ORDERED: CYAN10006 PO (10:45)
[2016-03-26] MEDS ORDERED: INSU100V31 SC (10:45)
[2016-03-26] MEDS ORDERED: WARF-48 PO ×2 (10:45)
[2016-03-26] MEDS ORDERED: DILT180C54 PO (10:45)
[2016-03-26] MEDS ORDERED: NITR0.4T SL (10:45)
[2016-03-26] MEDS ORDERED: PATIENT MAY USE OWN MEDS, ALL MC SCH (12:00)
[2016-03-26] MEDS ORDERED: NITROGLYCERIN SUBLINGUAL 0.4 MG TAB (NITROSTAT) SL PRN (12:00)
[2016-03-26] MEDS ORDERED: BETAMETHASONE/CLOTRIM CREAM (LOTRISONE) 45 GM TP PRN (12:00)
[2016-03-26] MEDS: inSUlin REGULAR (NovoLIN R) 1000 UNITS/10 ML VIAL SC SCH (21:00)
[2016-03-26] MEDS: DOCUSATE SODIUM 100 MG (COLACE) CAP PO SCH (21:01)
[2016-03-26] MEDS: MONTELUKAST 10 MG (SINGULAIR) TAB PO SCH (21:02)
[2016-03-26] MEDS: SIMvastatin 40 MG (ZOCOR) TAB PO SCH (21:03)
[2016-03-26] MEDS: ceTIRizine 10 MG (ZyrTEC) TAB NON-FORMULARY PO SCH (21:04)
[2016-03-26] MEDS: INSULIN NPH SQ SCH (21:12)
[2016-03-26] MEDS: oxyCODONE/APAP 5/325MG (PERCOCET 5) TABLET PO PRN (21:17)
[2016-03-27] VITALS (11 sets, daily range): BP systolic 102–138; BP diastolic 56–77
[2016-03-27 04:25] LABS: MEAN PLATELET VOLUME 9.9 FL (7.4-10.4); RED BLOOD COUNT 3.33 10^6/uL (4.35-5.85); RED CELL DISTRIBUTION WIDTH 21.1 % (10.0-14.5); WHITE BLOOD COUNT 14.6 10^3/uL (4.3-11.0)
[2016-03-27 04:35] LABS: INR 1.5 (0.8-1.4); PROTHROMBIN TIME PATIENT 17.6 SEC (12.2-14.7)
[2016-03-27 04:47] LABS: ALBUMIN 3.4 G/DL (3.2-4.5); BILIRUBIN,TOTAL 0.8 MG/DL (0.1-1.0); CALCIUM 8.3 MG/DL (8.5-10.1); CREATININE SERUM 1.95 MG/DL (0.60-1.30); POTASSIUM 4.1 MMOL/L (3.6-5.0); TOTAL PROTEIN 6.6 G/DL (6.4-8.2)
--- NOTE | 2016-03-27 08:51 | Progress Note-Cardiology ---
Cardiology SOAP Progress Note Subjective: Sitting up on the side of the bed. States she feels better today. Reports the dizziness she was previously feeling is much better. She feels her breathing is better today. No c/o CP, palpitations, syncope or near syncope. Objective: I&O/Vital Signs Vital Sign - Last 12Hours 03/27/16 03/27/16 03/27/16 03/27/16 00:00 00:00 01:00 04:00 Temp 98.1 Pulse 73 66 Resp 20 B/P 111/56 Pulse Ox 91 O2 Delivery NIV/CPAP NIV/CPAP NIV/CPAP O2 Flow Rate 6.00 6.00 5.00 03/27/16 03/27/16 03/27/16 04:00 07:00 08:47 Temp 96.3 97.1 Pulse 64 64 61 Resp 18 24 B/P 120/73 102/61 Pulse Ox 98 92 O2 Delivery NIV/CPAP High Flow NC O2 Flow Rate 5.00 5.00 Intake and Output 03/27/16 00:00 Intake Total 1885 ml Output Total 825 ml Balance 1060 ml Weight (Pounds): 292 Weight (Ounces): 9.6 Weight (Calculated Kilograms): 132.909719 Constitutional: appears stated ageNo apparent distress, well-developed well- nourished Respiratory: No accessory muscle use, No respiratory distress, chest expansion is symmetric chest is bilaterally symmetric wheezing (scattered exp) other (good air entry) Cardiovascular: irregularly irregularNo JVD, S1 and S2 systolic murmur Gastrointestional: No tender, soft roundNo spleenomegaly Extremities: No clubbing, No cyanosis, No significant edema Neurologic/Psychiatric: alert oriented x 3 power is 5/5 both on sides Skin: pallorNo rash, No ulcerations Results/Procedures: Labs Laboratory Tests 03/26/16 12:00: Glucometer 110 03/26/16 16:57: Glucometer 174H 03/26/16 20:59: Glucometer 193H 03/27/16 04:13: Alanine Aminotransferase (ALT/SGPT) 12, Albumin 3.4, Alkaline Phosphatase 71, Anion Gap 9, Aspartate Amino Transf (AST/SGOT) 21, BUN/Creatinine Ratio 22, Blood Urea Nitrogen 42H, Calcium Level 8.3L, Carbon Dioxide Level 25, Chloride Level 106, Creatinine 1.95H, Estimat Glomerular Filtration Rate 25, Glucose Level 120H, Hematocrit 28L, Hemoglobin 8.0#L, INR Comment 1.5H, Mean Corpuscular Hemoglobin 24L, Mean Corpuscular Hemoglobin Concent 29L, Mean Corpuscular Volume 83, Mean Platelet Volume 9.9, Platelet Count 300, Potassium Level 4.1, Prothrombin Time 17.6H, Red Blood Count 3.33L, Red Cell Distribution Width 21.1H, Sodium Level 140, Total Bilirubin 0.8, Total Protein 6.6, White Blood Count 14.6H A/P: Assessment: Severe anemia of undetermined etiology - can not exclude blood loss - H/H improved following transfusion of 2 units PRBC, but still quite anemic Increasing exertional shortness of breath Episode of near syncope likely d/t orthostatic hypotension r/t medications - no further episodes since discontinuation of antihypertensives PAF with a controlled rate per 30 day event monitor transmissions of March 2015 COPD Echocardiogram from July 2015 showed LVEF 65%. Mild TR. Mitral valve sclerosis and aortic valve sclerosis, mild, without evidence of significant valvular stenosis. PASP approx 30mmHg H/o intestinal angina, resolved following PCI to sup mesenteric and celiac arteries in Sep 2012 CKD stage IV. Chronic renal failure, managed by her pattern grader Dr Hastings H/o VERENICE. Has had renal artery stents in 2008. Most recently had right renal artery stenting by Dr Foster in Sep 2012 CAD. POBA of RPL in 04/29, NAGA of RCA in 07/29. Last cath in April 2014 showed diffuse mild to moderate disease. There is a patent stent in the mid RCA and distal to the stent, there is 50% stenosis in the RCA. The rest of the coronary vessels have diffuse mild to mod disease. Elevated LVEDP MPI of 6-2-16 showed no evidence of significant myocardial infarction or ischmeia. Normal regional wall motion. LVEF 55%. Normal LV cavity size Hypertension DM II, insulin requiring Sleep apnea, treated with CPAP Hypothyroidism, being treated H/o gout H/o left subclavian artery stenosis and retrograde flow in left vertebral artery H/o tobacco use; quit in Dec 2010 PAD, h/o aortobifem surgery in 1994 Carotid art stenoses, asymptomatic, bilat internal carotid artery stenoses of 60 -79% R ICA and 5-60% L ICA per November 2015 u/s. Chronic leg swelling due to venous insufficiency, stable Obesity with BMI approx 46 POLI of 10-15-15 showed low normal POLI, bilat Plan: Severe anemia of undetermined etiology, can not exclude blood loss. H/H improved from 6.6/24 to 8.0/28. Transfuse another 2 units PRBC today consulted Occult stools. Cardiac cath cancelled for now until anemia is fully evaluated and treated. Monitor lab closely We will hold OAC for now until source of blood loss has been determined and treated Restart ASA 81 mg daily d/t CAD Continue PPI Physician Assessment Physician Assessment Lungs: good bilat air entry Cor: reg A&R * As documented in our note above * Complex management due to multiple comorbidities * More transfusion today * I have spoken with Dr Mclaughlin regarding anemia eval * I spoke with Ms Gastelum and answered questions SANAM BROWN Mar 27, 2016 08:51 KEARA HERNANDEZ MD FACP [facility] Mar 27, 2016 09:21 SANAM BROWN Mar 27, 2016 08:51
[2016-03-27] MEDS: ALLOPURINOL 100 MG (ZYLOPRIM) TAB PO SCH (08:54)
[2016-03-27] MEDS: PANTOPRAZOLE 40 MG (PROTONIX) TAB PO SCH (08:54)
[2016-03-27] MEDS: LEVOTHYROXINE 150 MCG (LEVOTHROID) TAB PO SCH (08:55)
[2016-03-27] MEDS: VITAMIN D3 1000 UNIT PO SCH (08:55)
[2016-03-27] MEDS: FUROSEMIDE 40 MG (LASIX) TAB PO SCH (08:55)
[2016-03-27] MEDS: VITAMIN B12 1000 MCG PO SCH (08:55)
[2016-03-27] MEDS: VITAMIN B COMPLEX PO SCH (08:56)
[2016-03-27] MEDS: DILTIAZEM 180 MG (CARDIZEM CD) CAP PO SCH (08:56)
[2016-03-27] MEDS: INSULIN NPH SQ SCH ×2 (08:58→21:00)
[2016-03-27] MEDS: inSUlin REGULAR (NovoLIN R) 1000 UNITS/10 ML VIAL SC SCH ×2 (08:59→21:00)
[2016-03-27] MEDS ORDERED: FUROSEMIDE 40 MG/4 ML INJ (LASIX) IVP ONE (09:00)
[2016-03-27] MEDS ORDERED: PANTOPRAZOLE 40 MG/10 ML (PROTONIX) VIAL IV SCH (09:00)
[2016-03-27] MEDS: RT-ALBUTEROL SULF 2.5 MG/3 ML PRE-MIX VIAL INH PRN ×2 (10:46→21:07)
[2016-03-27] MEDS: CALCITRIOL 0.25 MCG PO SCH (11:28)
--- NOTE | 2016-03-27 12:45 | Consultation ---
History of Present Illness History of Present Illness Patient Consulted On(sivan/time) 03/27/16 12:44 Date of Admission 03/26/16 Reason for Visit: severe edema, chest pain History of Present Illness PT IS A 71 Y/O FEMALE WHO HAS SEVERE COPD, OXYGEN DEPENDENT - WAS SEEN BY DR. HERNANDEZ FOR ROUTINE FOLLOW UP AND FOUND TO HAVE A HEMOGLOBIN OF 6, SHE WAS ADMITTED TO THE HOSPITAL, GIVEN BLOOD TRANSFUSION AND FURTHER REPEAT LABS. THE PATIENT IS COMPLAINING OF SEVERE PAIN IN HER RIGHT KNEE. SHE REPORTS THAT SHE HAS AN APPT ON FRIDAY WITH DR. MITCHELL, BUT HER KNEE IS SIGNIFICANTLY PAINFUL. Allergies and Home Medications Allergies Coded Allergies: Penicillins (Verified Allergy, Unknown, 05/14/05) Home Medications Albuterol Sulfate 18 Gm Hfa.aer.ad 2 PUFF IH QID PRN PRN SHORTNESS OF BREATH ( Reported) Allopurinol 100 Mg Tablet 100 MG PO DAILY (Reported) Aspirin 81 Mg Tablet.dr 81 MG PO HS (Reported) Calcitriol 0.25 Mcg Capsule 0.25 MCG PO MoWeFrSa (Reported) Cetirizine HCl 10 Mg Tablet 10 MG PO HS (Reported) Cholecalciferol (Vitamin D3) 1,000 Unit Capsule 1,000 UNIT PO DAILY (Reported) Citalopram Hydrobromide 20 Mg Tablet 20 MG PO DAILY (Reported) Clotrimazole/Betamethasone Dip 15 Gm Cream..g. TOP DAILY PRN PRN RASH (Reported ) Cyanocobalamin (Vitamin B-12) 1,000 Mcg Tablet 1,000 MCG PO DAILY (Reported) Diltiazem HCl 180 Mg Cap.er.24h 180 MG PO DAILY (Reported) Docusate Sodium 100 Mg Capsule 100 MG PO HS (Reported) Furosemide 40 Mg Tablet 40 MG PO DAILY (Reported) Insulin NPH Human Isophane 100 Unit/1 Ml Vial 65 UNITS SQ BID (Reported) Insulin Regular, Human 100 Unit/1 Ml Vial 35 UNITS SQ DAILY (Reported) Insulin Regular, Human 100 Unit/1 Ml Vial 30 UNIT SC HS (Reported) Levothyroxine Sodium 150 Mcg Tablet 150 MCG PO DAILY (Reported) Montelukast Sodium 10 Mg Tablet 10 MG PO HS (Reported) Nitroglycerin 0.4 Mg Tab.subl 0.4 MG SL UD PRN PRN CHEST PAIN (Reported) Oxycodone HCl/Acetaminophen 1 Each Tablet 1 TAB PO Q4H PRN PRN PAIN (Reported) Pantoprazole Sodium 40 Mg Tablet.dr 40 MG PO DAILY (Reported) Simvastatin 40 Mg Tablet 20 MG PO HS (Reported) Vitamin B Complex 1 Each Tablet 1 TAB PO DAILY (Reported) Warfarin Sodium 5 Mg Tablet 5 MG PO MoTuFrSa (Reported) Warfarin Sodium 5 Mg Tablet 2.5 MG PO SuWeTh (Reported) TAKES 1/2 (5MG) TABLET Past Uhncmwk-Qnrrcr-Snkmxc Hx Patient Social History Alcohol Use: Rarely Uses Recreational Drug Use: No Smoking Status: Former Smoker Type Used: Cigarettes Former Smoker/When Quit: May 04, 2011 2nd Hand Smoke Exposure: No Recent Foreign Travel: No Contact w/Someone Who Travel: No Recent Infectious Disease Expo: No Recent Hopitalizations: No Physical Abuse Screen: No Sexual Abuse: No Immunizations Up To Date PED Vaccines UTD: Yes Date of Pneumonia Vaccine: Dec 03, 2013 Date of Influenza Vaccine: Dec 04, 2015 Seasonal Allergies Seasonal Allergies: No Surgeries HX Surgeries: Yes Surgeries: Adenoidectomy, Appendectomy, Cardiac, Coronary Stent, Gallbladder, Hysterectomy, Joint Replacement, Oophorectomy, Orthopedic, Thyroidectomy, Tonsillectomy, Vascular Surgery Respiratory Hx Respiratory Disorders: Yes (SLEEP APNEA, O2 AT 3L/NC CONTINUOUSLY) Respiratory Disorders: Sleep Apnea, COPD, Emphysema Cardiovascular Hx Cardiac Disorders: Yes Cardiac Disorders: Atrial Fibrillation, Chronic Edema/Swelling, Coronary Artery Disease, Heart Attack, High Cholesterol, Hypertension, Peripheral Vascular Neurological Hx Neurological Disorders: No Reproductive System : No Hx Reproductive Disorders: No Sexually Transmitted Disease: No Genitourinary Hx Genitourinary Disorders: Yes Genitourinary Disorders: Renal Failure Gastrointestinal Hx Gastrointestinal Disorders: Yes Gastrointestinal Disorders: Ulcer Musculoskeletal Hx Musculoskeletal Disorders: Yes Musculoskeletal Disorders: Arthritis Endocrine Hx Endocrine Disorders: Yes (S/P THYROIDECTOMY) Endocrine Disorders: Diabetes, Insulin dep, Hypothyroidsim HEENT HX ENT Disorders: No Cancer Hx Cancer: No Psychosocial Hx Psychiatric Problems: Yes Behavioral Health Disorders: Anxiety, Depression Integumentary HX Skin/Integumentary Disorder: No Blood Transfusions Hx Blood Disorders: No Adverse Reaction to a Blood Tr: No Reviewed Nursing Assessment Reviewed/Agree w Nursing PMH: Yes Family Medical History Significant Family History: Heart Disease, COPD, Diabetes, Hypertension Family Medial History: Diabetes mellitus G8 SISTER, Age:57 Respiratory disorder G8 BROTHER, Age:75 Review of Systems-General Constitutional: No fever, weakness EENTM: No hoarseness, No mouth pain, No throat pain Respiratory: cough dyspnea on exertion hemoptysis Cardiovascular: edema palpitations Gastrointestinal: No abdominal pain, No constipation, No diarrhea, No dysphagia Genitourinary: no symptoms reported Musculoskeletal: joint pain (RIGHT KNEE) Skin: No lesions Psychiatric/Neurological: Denies Anxiety, Denies Depressed, Denies Headache, Weakness All Other Systems Reviewed Negative Unless Noted: Yes Physical Exam-General Problems Physical Exam Vital Signs Vital Sign - Last 12Hours 03/26/16 08:49 Temp 98.5 Pulse 70 Resp 24 B/P 92/33 Pulse Ox 88 O2 Delivery Nasal Cannula O2 Flow Rate 3.00 Capillary Refill : General Appearance: WD/WN moderate distress (DUE TO PAIN IN RIGHT KNEE - PT SITTING UP AT SIDE OF BED RUBBING KNEE) Eyes: Bilateral Eye EOMI, Bilateral Eye Normal Inspection, Bilateral Eye PERRL HEENT: PERRL/EOMI pharynx normal Neck: non-tender supple Respiratory: chest non-tender decreased breath sounds wheezing Cardiovascular: regular rate, rhythm Gastrointestinal: normal bowel sounds non tender soft no organomegaly no pulsatile mass Rectal: deferred Back: normal inspection Extremities: No swelling, other (TTP OVER RIGHT KNEE) 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 HERNANDEZ CHRONIC COPD WITH ACUTE EXACERBATION - MONITOR SYMPTOMS - AGREE WITH PLAN FOR CONSULT TO DR. REYES TOMORROW. RIGHT KNEE PAIN DUE TO OSTEOARTHRITIS - PT WANTS TO BE DISCHARGED TO SEE ORTHOPEDIC SURGEON ON FRIDAY. DIABETES MELLITUS- RESTART HOME MEDS DEPRESSION - RESTART HOME MEDS CHRONIC ANTICOAGULATION - ADDRESSED BY DR. HERNANDEZ Clinical Quality Measures DVT/VTE Risk/Contraindication: Risk Factor Score Per Nursin RFS Level Per Nursing on Admit: 4+=Very High PHIL MONTALVO MD Mar 27, 2016 12:45
[2016-03-27] MEDS: DICLOFENAC 1% GEL 100 GM (VOLTAREN) TUBE TOP SCH ×3 (14:03→21:15)
[2016-03-27] MEDS ORDERED: FUROSEMIDE 40 MG/4 ML INJ (LASIX) ONE (21:06)
[2016-03-27] MEDS: SIMvastatin 40 MG (ZOCOR) TAB PO SCH (21:14)
[2016-03-27] MEDS: MONTELUKAST 10 MG (SINGULAIR) TAB PO SCH (21:14)
[2016-03-27] MEDS: DOCUSATE SODIUM 100 MG (COLACE) CAP PO SCH (21:14)
[2016-03-27] MEDS: ceTIRizine 10 MG (ZyrTEC) TAB NON-FORMULARY PO SCH (21:16)
[2016-03-27] MEDS: oxyCODONE/APAP 5/325MG (PERCOCET 5) TABLET PO PRN (23:41)
[2016-03-28] VITALS (12 sets, daily range): BP systolic 93–136; BP diastolic 42–76
[2016-03-28 04:42] LABS: MEAN PLATELET VOLUME 10.1 FL (7.4-10.4); RED BLOOD COUNT 3.81 10^6/uL (4.35-5.85); RED CELL DISTRIBUTION WIDTH 19.3 % (10.0-14.5); WHITE BLOOD COUNT 18.1 10^3/uL (4.3-11.0)
[2016-03-28 05:02] LABS: ALBUMIN 3.3 G/DL (3.2-4.5); BILIRUBIN,TOTAL 1.2 MG/DL (0.1-1.0); CALCIUM 8.4 MG/DL (8.5-10.1); CREATININE SERUM 1.83 MG/DL (0.60-1.30); POTASSIUM 3.9 MMOL/L (3.6-5.0); TOTAL PROTEIN 6.6 G/DL (6.4-8.2)
[2016-03-28 05:06] LABS: INR 1.3 (0.8-1.4); PROTHROMBIN TIME PATIENT 16.1 SEC (12.2-14.7)
[2016-03-28] MEDS: oxyCODONE/APAP 5/325MG (PERCOCET 5) TABLET PO PRN (08:11)
[2016-03-28] MEDS: ASPIRIN E.C. 81 MG (ECOTRIN) TAB PO SCH (08:12)
[2016-03-28] MEDS: ALLOPURINOL 100 MG (ZYLOPRIM) TAB PO SCH (08:14)
[2016-03-28] MEDS: VITAMIN B COMPLEX PO SCH (08:15)
[2016-03-28] MEDS ORDERED: CATHETER FLUSH 10 ML SYR IV PRN (08:15)
[2016-03-28] MEDS: PANTOPRAZOLE 40 MG (PROTONIX) TAB PO SCH (08:16)
[2016-03-28] MEDS: DILTIAZEM 180 MG (CARDIZEM CD) CAP PO SCH (08:17)
[2016-03-28] MEDS: VITAMIN B12 1000 MCG PO SCH (08:17)
[2016-03-28] MEDS: LEVOTHYROXINE 150 MCG (LEVOTHROID) TAB PO SCH (08:18)
[2016-03-28] MEDS: FUROSEMIDE 40 MG (LASIX) TAB PO SCH (08:18)
[2016-03-28] MEDS: VITAMIN D3 1000 UNIT PO SCH (08:19)
[2016-03-28] MEDS: DICLOFENAC 1% GEL 100 GM (VOLTAREN) TUBE TOP SCH ×4 (08:20→21:20)
[2016-03-28] MEDS: RT-ALBUTEROL SULF 2.5 MG/3 ML PRE-MIX VIAL INH PRN ×2 (08:25→14:53)
--- NOTE | 2016-03-28 08:52 | Progress Note-Cardiology ---
Cardiology SOAP Progress Note Subjective: Continued SOB. Hemoptysis. No c/o CP, palpitations, syncope, near syncope or LE edema. States she feels somewhat better. Objective: I&O/Vital Signs Vital Sign - Last 12Hours 03/27/16 03/27/16 03/27/16 03/27/16 21:07 21:11 22:02 22:02 Temp 98.7 98.6 98.6 Pulse 85 76 76 Resp 24 24 24 B/P 118/77 125/58 125/58 Pulse Ox 79 96 96 96 O2 Flow Rate 6.00 03/27/16 03/28/16 03/28/16 03/28/16 22:22 00:00 00:26 01:00 Temp 98.4 99.1 99.7 Pulse 77 78 75 94 Resp 23 17 22 B/P 138/61 132/60 132/60 Pulse Ox 96 94 96 O2 Delivery NIV/CPAP O2 Flow Rate 10.00 03/28/16 03/28/16 03/28/16 03/28/16 04:00 07:00 07:39 08:27 Temp 97.8 Pulse 68 69 Resp 18 B/P 114/54 Pulse Ox 95 93 81 O2 Delivery NIV/CPAP O2 Flow Rate 5.00 5.00 Intake and Output 03/28/16 00:00 Intake Total 1080 ml Output Total 2450 ml Balance -1370 ml Weight (Pounds): 292 Weight (Ounces): 9.6 Weight (Calculated Kilograms): 132.168331 Constitutional: appears stated ageNo apparent distress, well-developed well- nourished Respiratory: No accessory muscle use, No respiratory distress, chest expansion is symmetric chest is bilaterally symmetric crackles (lower lobes bilat; hemoptysis) wheezing (scattered exp) other (good air entry) Cardiovascular: irregularly irregularNo JVD, S1 and S2 systolic murmur Gastrointestional: No tender, soft roundNo spleenomegaly Extremities: No clubbing, No cyanosis, No significant edema Neurologic/Psychiatric: alert oriented x 3 power is 5/5 both on sides Skin: pallorNo rash, No ulcerations Results/Procedures: Labs Laboratory Tests 03/27/16 11:28: Glucometer 145H 03/27/16 16:16: Glucometer 105 03/27/16 20:44: Glucometer 108 03/28/16 04:19: Alanine Aminotransferase (ALT/SGPT) 12, Albumin 3.3, Alkaline Phosphatase 69, Anion Gap 11, Aspartate Amino Transf (AST/SGOT) 25, BUN/Creatinine Ratio 23, Blood Urea Nitrogen 43H, Calcium Level 8.4L, Carbon Dioxide Level 25, Chloride Level 104, Creatinine 1.83H, Estimat Glomerular Filtration Rate 27, Glucose Level 87, Hematocrit 32L, Hemoglobin 9.7#L, INR Comment 1.3, Mean Corpuscular Hemoglobin 25, Mean Corpuscular Hemoglobin Concent 30L, Mean Corpuscular Volume 84, Mean Platelet Volume 10.1, Platelet Count 261, Potassium Level 3.9, Prothrombin Time 16.1H, Red Blood Count 3.81L, Red Cell Distribution Width 19.3H , Sodium Level 140, Total Bilirubin 1.2H, Total Protein 6.6, White Blood Count 18.1H Microbiology 03/26/16 MRSA Screen - Final, Complete MRSA not isolated A/P: Assessment: Severe anemia of undetermined etiology - can not exclude blood loss - H/H improved following transfusion of 2 units PRBC, but still quite anemic Increasing exertional shortness of breath Hemoptysis Leucocytosis of undetermined etiology Episode of near syncope likely d/t orthostatic hypotension r/t medications - no further episodes since discontinuation of antihypertensives PAF with a controlled rate per 30 day event monitor transmissions of March 2015 COPD Echocardiogram from July 2015 showed LVEF 65%. Mild TR. Mitral valve sclerosis and aortic valve sclerosis, mild, without evidence of significant valvular stenosis. PASP approx 30mmHg H/o intestinal angina, resolved following PCI to sup mesenteric and celiac arteries in Sep 2012 CKD stage IV. Chronic renal failure, managed by her elevator builder Dr Hastings H/o VERENICE. Has had renal artery stents in 2008. Most recently had right renal artery stenting by Dr Foster in Sep 2012 CAD. POBA of RPL in 04/29, NAGA of RCA in 07/29. Last cath in April 2014 showed diffuse mild to moderate disease. There is a patent stent in the mid RCA and distal to the stent, there is 50% stenosis in the RCA. The rest of the coronary vessels have diffuse mild to mod disease. Elevated LVEDP MPI of 16 showed no evidence of significant myocardial infarction or ischmeia. Normal regional wall motion. LVEF 55%. Normal LV cavity size Hypertension DM II, insulin requiring Sleep apnea, treated with CPAP Hypothyroidism, being treated H/o gout H/o left subclavian artery stenosis and retrograde flow in left vertebral artery H/o tobacco use; quit in Dec 2010 PAD, h/o aortobifem surgery in 1994 Carotid art stenoses, asymptomatic, bilat internal carotid artery stenoses of 60 -79% R ICA and 5-60% L ICA per November 2015 u/s. Chronic leg swelling due to venous insufficiency, stable Obesity with BMI approx 46 POLI of 10-15-15 showed low normal POLI, bilat Plan: Complex management issue Severe anemia of undetermined etiology, can not exclude blood loss. H/H improving. Transfuse another 2 units of PRBC today Hemoptysis - CXR today Leucocytosis of undetermined etiology Dr. Vick consulted CKD - Cr gradually improving Occult stools. Cardiac cath cancelled for now until anemia is fully evaluated and treated. Monitor lab closely We will hold OAC for now until source of blood loss has been determined and treated Physician Assessment Physician Assessment Lungs: dec bs at bases Cor: reg A&R * As documented in our note above * Complex management due to multiple comorbidities * Additional blood transfusions today * Monitor closely * CXR and CT chest to eval for pulm lesions, given hemoptysis. Also pulm consult SANAM BROWN WATER SOFTENER SERVICE SUPERVISOR Mar 28, 2016 08:52 KEARA HERNANDEZ MD FACP FAC CCDS Mar 28, 2016 08:59
[2016-03-28] MEDS ORDERED: FUROSEMIDE 40 MG/4 ML INJ (LASIX) IVP NR (08:59)
--- NOTE | 2016-03-28 09:28 | Progress Note (SOAP) ---
Objective Exam Vital Signs Date Time Temp Pulse Resp B/P Pulse Ox O2 Delivery O2 Flow Rate FiO2 03/28/16 08:27 81 5.00 03/28/16 07:39 93 5.00 03/28/16 07:00 69 03/28/16 04:00 97.8 68 18 114/54 95 NIV/CPAP 03/28/16 01:00 94 03/28/16 00:26 99.7 75 22 132/60 96 10.00 03/28/16 00:00 99.1 78 17 132/60 94 NIV/CPAP 03/27/16 22:22 98.4 77 23 138/61 96 03/27/16 22:02 98.6 76 24 125/58 96 03/27/16 22:02 98.6 76 24 125/58 96 03/27/16 21:11 98.7 85 24 118/77 96 03/27/16 21:07 79 6.00 03/27/16 20:10 98.3 87 22 128/64 92 High Flow NC 5.00 03/27/16 20:00 High Flow NC 5.00 03/27/16 19:00 80 03/27/16 18:40 98.0 85 18 135/65 91 5.00 03/27/16 18:25 97.3 87 18 133/64 90 5.00 03/27/16 16:45 98.4 75 18 109/69 90 High Flow NC 5.00 03/27/16 16:00 High Flow NC 5.00 03/27/16 13:00 77 03/27/16 12:00 High Flow NC 5.00 03/27/16 11:29 96.7 75 20 104/57 95 High Flow NC 5.00 03/27/16 10:46 91 6.00 I & O 03/28/16 07:00 Intake Total 1480 ml Output Total 3950 ml Balance -2470 ml Capillary Refill : General Appearance: No Apparent Distress Results Lab Laboratory Tests 03/27/16 11:28: Glucometer 145H 03/27/16 16:16: Glucometer 105 03/27/16 20:44: Glucometer 108 03/28/16 04:19: Alanine Aminotransferase (ALT/SGPT) 12, Albumin 3.3, Alkaline Phosphatase 69, Anion Gap 11, Aspartate Amino Transf (AST/SGOT) 25, BUN/Creatinine Ratio 23, Blood Urea Nitrogen 43H, Calcium Level 8.4L, Carbon Dioxide Level 25, Chloride Level 104, Creatinine 1.83H, Estimat Glomerular Filtration Rate 27, Glucose Level 87, Hematocrit 32L, Hemoglobin 9.7#L, INR Comment 1.3, Mean Corpuscular Hemoglobin 25, Mean Corpuscular Hemoglobin Concent 30L, Mean Corpuscular Volume 84, Mean Platelet Volume 10.1, Platelet Count 261, Potassium Level 3.9, Prothrombin Time 16.1H, Red Blood Count 3.81L, Red Cell Distribution Width 19.3H , Sodium Level 140, Total Bilirubin 1.2H, Total Protein 6.6, White Blood Count 18.1H Microbiology 03/26/16 MRSA Screen - Final, Complete MRSA not isolated Assessment/Plan Assessment/Plan Assess & Plan/Chief Complaint ANEMIA HYPERTENSION CHRONIC COPD WITH ACUTE EXACERBATION RIGHT KNEE PAIN DUE TO OSTEOARTHRITIS DIABETES MELLITUS DEPRESSION CHRONIC ANTICOAGULATION Diagnosis/Problems: Clinical Quality Measures DVT/VTE Risk/Contraindication: Risk Factor Score Per Nursin RFS Level Per Nursing on Admit: 4+=Very High PHIL MONTALVO MD Mar 28, 2016 09:28
--- NOTE | 2016-03-28 09:37 | Progress Note (SOAP) ---
Subjective Subjective/Events-last exam DUPLICATE NOTE Objective Exam Vital Signs Date Time Temp Pulse Resp B/P Pulse Ox O2 Delivery O2 Flow Rate FiO2 03/28/16 08:27 81 5.00 03/28/16 07:39 93 5.00 03/28/16 07:00 69 03/28/16 04:00 97.8 68 18 114/54 95 NIV/CPAP 03/28/16 01:00 94 03/28/16 00:26 99.7 75 22 132/60 96 10.00 03/28/16 00:00 99.1 78 17 132/60 94 NIV/CPAP 03/27/16 22:22 98.4 77 23 138/61 96 03/27/16 22:02 98.6 76 24 125/58 96 03/27/16 22:02 98.6 76 24 125/58 96 03/27/16 21:11 98.7 85 24 118/77 96 03/27/16 21:07 79 6.00 03/27/16 20:10 98.3 87 22 128/64 92 High Flow NC 5.00 03/27/16 20:00 High Flow NC 5.00 03/27/16 19:00 80 03/27/16 18:40 98.0 85 18 135/65 91 5.00 03/27/16 18:25 97.3 87 18 133/64 90 5.00 03/27/16 16:45 98.4 75 18 109/69 90 High Flow NC 5.00 03/27/16 16:00 High Flow NC 5.00 03/27/16 13:00 77 03/27/16 12:00 High Flow NC 5.00 03/27/16 11:29 96.7 75 20 104/57 95 High Flow NC 5.00 03/27/16 10:46 91 6.00 I & O 03/28/16 07:00 Intake Total 1480 ml Output Total 3950 ml Balance -2470 ml Capillary Refill : General Appearance: Other (DUPLICATE NOTE) Results Lab Laboratory Tests 03/27/16 11:28: Glucometer 145H 03/27/16 16:16: Glucometer 105 03/27/16 20:44: Glucometer 108 03/28/16 04:19: Alanine Aminotransferase (ALT/SGPT) 12, Albumin 3.3, Alkaline Phosphatase 69, Anion Gap 11, Aspartate Amino Transf (AST/SGOT) 25, BUN/Creatinine Ratio 23, Blood Urea Nitrogen 43H, Calcium Level 8.4L, Carbon Dioxide Level 25, Chloride Level 104, Creatinine 1.83H, Estimat Glomerular Filtration Rate 27, Glucose Level 87, Hematocrit 32L, Hemoglobin 9.7#L, INR Comment 1.3, Mean Corpuscular Hemoglobin 25, Mean Corpuscular Hemoglobin Concent 30L, Mean Corpuscular Volume 84, Mean Platelet Volume 10.1, Platelet Count 261, Potassium Level 3.9, Prothrombin Time 16.1H, Red Blood Count 3.81L, Red Cell Distribution Width 19.3H , Sodium Level 140, Total Bilirubin 1.2H, Total Protein 6.6, White Blood Count 18.1H Microbiology 03/26/16 MRSA Screen - Final, Complete MRSA not isolated Assessment/Plan Assessment/Plan Assess & Plan/Chief Complaint ANEMIA HYPERTENSION CHRONIC COPD WITH ACUTE EXACERBATION RIGHT KNEE PAIN DUE TO OSTEOARTHRITIS DIABETES MELLITUS DEPRESSION CHRONIC ANTICOAGULATION ANEMIA - MONITOR LABS - PT TO HAVE SERIAL LABS HYPERTENSION - ADDRESSED BY DR. HERNANDEZ CHRONIC COPD WITH ACUTE EXACERBATION - MONITOR SYMPTOMS - AGREE WITH PLAN FOR CONSULT TO DR. REYES TODAY DUE TO PERSISTENT HEMOPTYSIS RIGHT KNEE PAIN DUE TO OSTEOARTHRITIS - WILL CHECK CT OF KNEE TODAY - WITH THE WHITE COUNT INCREASING - WILL RULE OUT KNEE SOURCE OF ELEVATED WBC'S - CHECK ESR, CRP DIABETES MELLITUS- RESTARTED HOME MEDS DEPRESSION - RESTARTED HOME MEDS CHRONIC ANTICOAGULATION - ADDRESSED BY DR. HERNANDEZ Diagnosis/Problems: Clinical Quality Measures DVT/VTE Risk/Contraindication: Risk Factor Score Per Nursin RFS Level Per Nursing on Admit: 4+=Very High PHIL MONTALVO MD Mar 28, 2016 09:37
--- NOTE | 2016-03-28 09:58 | Diagnostic Imaging Report ---
Indication: Coughing up blood and difficulty breathing. PA and lateral obtained at 9:30 hours a.m. and compared with 07/26/2015. Findings: Cardiomegaly is again noted. There is chronic right hilar prominence. There is central vascular congestion with some right perihilar and basilar infiltrate. There is no pneumothorax or gross pleural fluid. Impression: Cardiomegaly with chronic right hilar prominence. Central vascular congestion with mild right perihilar and basilar infiltrate. Followup is suggested. Dictated by: Dictated on workstation # [id number]
--- NOTE | 2016-03-28 11:01 | Diagnostic Imaging Report ---
PROCEDURE: CT right lower extremity without contrast. TECHNIQUE: Axially acquired CT was obtained through the right lower extremity without intravenous contrast. Coronal and sagittal reformations were also performed. INDICATION: Right knee pain. COMPARISON: The study is compared to 03/18/16 exam. FINDINGS: Again seen is a total knee placement with the prosthesis in good position and alignment. There is a patellar resurfacing also seen. There is a no evidence of loosening. There are significant beam hardening artifacts, particularly around the femoral prosthesis. There is no fracture seen. No displacement or loosening around the prosthesis identified. The soft tissues demonstrate no significant hematoma or fluid collection. Nonspecific mild subcutaneous edema is seen around the knee. IMPRESSION: Post total knee replacement findings. No fracture seen. There is nonspecific mild subcutaneous edema around the knee. Dictated by: Dictated on workstation # [id number]
[2016-03-28] MEDS: inSUlin REGULAR (NovoLIN R) 1000 UNITS/10 ML VIAL SC SCH ×2 (11:50→21:00)
[2016-03-28] MEDS: INSULIN NPH SQ SCH ×2 (11:54→21:00)
[2016-03-28] MEDS ORDERED: NS IV 500 ML 500 ML IV ONE (18:00)
[2016-03-28] MEDS ORDERED: FUROSEMIDE 40 MG/4 ML INJ (LASIX) ONE (21:15)
[2016-03-28] MEDS: DOCUSATE SODIUM 100 MG (COLACE) CAP PO SCH (21:17)
[2016-03-28] MEDS: SIMvastatin 40 MG (ZOCOR) TAB PO SCH (21:17)
[2016-03-28] MEDS: MONTELUKAST 10 MG (SINGULAIR) TAB PO SCH (21:17)
[2016-03-28] MEDS: ceTIRizine 10 MG (ZyrTEC) TAB NON-FORMULARY PO SCH (21:18)
[2016-03-29 00:30] VITALS: BP 137/69
[2016-03-29] MEDS: oxyCODONE/APAP 5/325MG (PERCOCET 5) TABLET PO PRN (03:39)
[2016-03-29 04:00] VITALS: BP 136/69
[2016-03-29] MEDS ORDERED: BUPIVACAINE 0.25% 30 ML (SENSORCAINE) VIAL INJ NR (06:00)
[2016-03-29] MEDS ORDERED: BETAMETHASONE ACE/NA PHOS 6 MG/ML (CELESTONE SOLUSPAN) IJ NR (06:00)
[2016-03-29 06:04] LABS: MEAN PLATELET VOLUME 10.3 FL (7.4-10.4); RED BLOOD COUNT 4.14 10^6/uL (4.35-5.85); RED CELL DISTRIBUTION WIDTH 19.3 % (10.0-14.5)
[2016-03-29 06:20] LABS: INR 1.2 (0.8-1.4); PROTHROMBIN TIME PATIENT 14.7 SEC (12.2-14.7)
[2016-03-29 06:30] LABS: CALCIUM 8.5 MG/DL (8.5-10.1); CREATININE SERUM 1.95 MG/DL (0.60-1.30); POTASSIUM 3.5 MMOL/L (3.6-5.0)
--- NOTE | 2016-03-29 07:25 | Pulmonary Consultation ---
History of Present Illness History of Present Illness Date of Consultation 03/29/16 07:20 Date of Admission Reason for Visit: severe edema, chest pain History of Present Illness 71yo admitted 03/27 secondary to worsening dyspnea. She was suppose to have scheduled cardiac cath however that was cancelled secondary to dyspnea and severe anemia. Pt has had frequent nose bleeds that last up to 20min and is now coughing up blood. pt states nose bleeds and hemoptysis all started when she was placed on oxygen. I am consulted for pulmonary management. Allergies and Home Medications Allergies Coded Allergies: Penicillins (Verified Allergy, Unknown, 05/14/05) Home Medications Albuterol Sulfate 18 Gm Hfa.aer.ad 2 PUFF IH QID PRN PRN SHORTNESS OF BREATH ( Reported) Allopurinol 100 Mg Tablet 100 MG PO DAILY (Reported) Aspirin 81 Mg Tablet.dr 81 MG PO HS (Reported) Calcitriol 0.25 Mcg Capsule 0.25 MCG PO MoWeFrSa (Reported) Cetirizine HCl 10 Mg Tablet 10 MG PO HS (Reported) Cholecalciferol (Vitamin D3) 1,000 Unit Capsule 1,000 UNIT PO DAILY (Reported) Citalopram Hydrobromide 20 Mg Tablet 20 MG PO DAILY (Reported) Clotrimazole/Betamethasone Dip 15 Gm Cream..g. TOP DAILY PRN PRN RASH (Reported ) Cyanocobalamin (Vitamin B-12) 1,000 Mcg Tablet 1,000 MCG PO DAILY (Reported) Diltiazem HCl 180 Mg Cap.er.24h 180 MG PO DAILY (Reported) Docusate Sodium 100 Mg Capsule 100 MG PO HS (Reported) Furosemide 40 Mg Tablet 40 MG PO DAILY (Reported) Insulin NPH Human Isophane 100 Unit/1 Ml Vial 65 UNITS SQ BID (Reported) Insulin Regular, Human 100 Unit/1 Ml Vial 35 UNITS SQ DAILY (Reported) Insulin Regular, Human 100 Unit/1 Ml Vial 30 UNIT SC HS (Reported) Levothyroxine Sodium 150 Mcg Tablet 150 MCG PO DAILY (Reported) Montelukast Sodium 10 Mg Tablet 10 MG PO HS (Reported) Nitroglycerin 0.4 Mg Tab.subl 0.4 MG SL UD PRN PRN CHEST PAIN (Reported) Oxycodone HCl/Acetaminophen 1 Each Tablet 1 TAB PO Q4H PRN PRN PAIN (Reported) Pantoprazole Sodium 40 Mg Tablet.dr 40 MG PO DAILY (Reported) Simvastatin 40 Mg Tablet 20 MG PO HS (Reported) Vitamin B Complex 1 Each Tablet 1 TAB PO DAILY (Reported) Warfarin Sodium 5 Mg Tablet 5 MG PO MoTuFrSa (Reported) Warfarin Sodium 5 Mg Tablet 2.5 MG PO SuWeTh (Reported) TAKES 1/2 (5MG) TABLET Past Avsztrn-Lgffgx-Xaldfl Hx Patient Social History Alcohol Use: Rarely Uses Recreational Drug Use: No Smoking Status: Former Smoker Type Used: Cigarettes Former Smoker/When Quit: May 04, 2011 2nd Hand Smoke Exposure: No Recent Foreign Travel: No Contact w/Someone Who Travel: No Recent Infectious Disease Expo: No Recent Hopitalizations: No Physical Abuse Screen: No Sexual Abuse: No Immunizations Up To Date PED Vaccines UTD: Yes Date of Pneumonia Vaccine: Dec 03, 2013 Date of Influenza Vaccine: Dec 04, 2015 Seasonal Allergies Seasonal Allergies: No Surgeries HX Surgeries: Yes Surgeries: Adenoidectomy, Appendectomy, Cardiac, Coronary Stent, Gallbladder, Hysterectomy, Joint Replacement, Oophorectomy, Orthopedic, Thyroidectomy, Tonsillectomy, Vascular Surgery Respiratory Hx Respiratory Disorders: Yes (SLEEP APNEA, O2 AT 3L/NC CONTINUOUSLY) Respiratory Disorders: Sleep Apnea, COPD, Emphysema Cardiovascular Hx Cardiac Disorders: Yes Cardiac Disorders: Atrial Fibrillation, Chronic Edema/Swelling, Coronary Artery Disease, Heart Attack, High Cholesterol, Hypertension, Peripheral Vascular Neurological Hx Neurological Disorders: No Reproductive System : No Hx Reproductive Disorders: No Sexually Transmitted Disease: No Genitourinary Hx Genitourinary Disorders: Yes Genitourinary Disorders: Renal Failure Gastrointestinal Hx Gastrointestinal Disorders: Yes Gastrointestinal Disorders: Ulcer Musculoskeletal Hx Musculoskeletal Disorders: Yes Musculoskeletal Disorders: Arthritis Endocrine Hx Endocrine Disorders: Yes (S/P THYROIDECTOMY) Endocrine Disorders: Diabetes, Insulin dep, Hypothyroidsim HEENT HX ENT Disorders: No Cancer Hx Cancer: No Psychosocial Hx Psychiatric Problems: Yes Behavioral Health Disorders: Anxiety, Depression Integumentary HX Skin/Integumentary Disorder: No Blood Transfusions Hx Blood Disorders: No Adverse Reaction to a Blood Tr: No Reviewed Nursing Assessment Reviewed/Agree w Nursing PMH: Yes Family Medical History Significant Family History: Heart Disease, COPD, Diabetes, Hypertension Family Medial History: Diabetes mellitus G8 SISTER, Age:57 Respiratory disorder G8 BROTHER, Age:75 Review of Systems Constitutional: : Malaise: Sweats: WeaknessNo: Chills, Fever, Other Respiratory: : Hemoptysis: SOB with excertion: Shortness of breath: Sputum Cardiovascular: : Orthopnea: Paroxysmal Noc. Dyspnea Gastrointestinal: No: Abdominal Pain, Constipation, Diarrhea, Hematochezia, Melena, Nausea, Other, Vomiting Genitourinary: No Dysuria, No Frequency, No Incontinence, No Hematuria, No Retention, No Other Musculoskeletal: No: arm pain, back pain, foot pain, hand pain, leg pain, neck pain, other, shoulder pain Neurological: : Incoordination: Weakness Exam Exam Vital Signs Date Time Temp Pulse Resp B/P Pulse Ox O2 Delivery O2 Flow Rate FiO2 03/29/16 04:00 98.5 80 19 136/69 91 NIV/CPAP 03/29/16 01:02 71 03/29/16 00:30 98.6 72 24 137/69 94 10.00 03/28/16 22:50 99.6 76 22 136/76 96 10.00 03/28/16 22:35 98.9 74 24 129/73 96 10.00 03/28/16 20:55 99.1 70 20 128/60 96 10.00 03/28/16 20:50 98.5 79 21 93/57 90 NIV/CPAP 03/28/16 20:00 High Flow NC 10.00 03/28/16 19:24 91 10.00 03/28/16 19:00 77 03/28/16 18:34 98.5 79 24 93/57 90 10.00 03/28/16 18:16 71 24 116/55 93 10.00 03/28/16 16:05 98.4 66 22 106/42 90 NIV/CPAP 03/28/16 14:53 92 10.00 03/28/16 13:00 80 03/28/16 12:00 97.9 82 24 96/49 92 NIV/CPAP 03/28/16 08:27 81 5.00 03/28/16 08:00 96.9 71 20 100/58 91 NIV/CPAP 03/28/16 08:00 High Flow NC 5.00 03/28/16 07:39 93 5.00 I & O 03/29/16 07:00 Intake Total 3222 ml Output Total 2500 ml Balance 722 ml General Appearance: No Apparent Distress Respiratory: No Accessory Muscle Use No Respiratory Distress Crackles Decreased Breath Sounds Cardiovascular: Regular Rate, Rhythm No Edema No Gallop No JVD Gastrointestinal: normal bowel sounds non tender soft no organomegaly no pulsatile mass Neurologic/Psychiatric: Alert Oriented x3 Skin: Normal Color Warm/Dry Lymphatic: No Adenopathy Results Lab Laboratory Tests 03/28/16 04:19 03/29/16 05:19 Assessment/Plan Assessment/Plan COPD AE Persistent hemoptysis with frequent nose bleeds since being placed on oxygen -She may need to see ENT for nose bleeds -Check CT of chest today - bronchoscopy for next Friday at 7AM . If pt is discharged this can be done as out patient Anemia - anticoagulation has been D/C'd Clinical Quality Measures DVT/VTE Risk/Contraindication: Risk Factor Score Per Nursin RFS Level Per Nursing on Admit: 4+=Very High LAY REYES DO Mar 29, 2016 07:25 Clinical Quality Measures DVT/VTE Risk/Contraindication: Risk Factor Score Per Nursin RFS Level Per Nursing on Admit: 4+=Very High LAY REYES DO Mar 29, 2016 07:25
[2016-03-29 08:50] VITALS: BP 133/77
--- NOTE | 2016-03-29 08:54 | Consultation ---
History of Present Illness History of Present Illness Patient Consulted On(sivan/time) 03/29/16 08:49 Date of Admission 03/28/2016 Reason for Visit: severe edema, chest pain History of Present Illness 71 yr old obese WF with sever R knee pain which has been worsening over the last few weeks. she denies trauma, fevers, or chills. she has a history of tony TKR several years ago. she says the pain is constant, even while she is at rest. She is requesting an injection. Allergies and Home Medications Allergies Coded Allergies: Penicillins (Verified Allergy, Unknown, 05/14/05) Home Medications Albuterol Sulfate 18 Gm Hfa.aer.ad 2 PUFF IH QID PRN PRN SHORTNESS OF BREATH ( Reported) Allopurinol 100 Mg Tablet 100 MG PO DAILY (Reported) Aspirin 81 Mg Tablet.dr 81 MG PO HS (Reported) Calcitriol 0.25 Mcg Capsule 0.25 MCG PO MoWeFrSa (Reported) Cetirizine HCl 10 Mg Tablet 10 MG PO HS (Reported) Cholecalciferol (Vitamin D3) 1,000 Unit Capsule 1,000 UNIT PO DAILY (Reported) Citalopram Hydrobromide 20 Mg Tablet 20 MG PO DAILY (Reported) Clotrimazole/Betamethasone Dip 15 Gm Cream..g. TOP DAILY PRN PRN RASH (Reported ) Cyanocobalamin (Vitamin B-12) 1,000 Mcg Tablet 1,000 MCG PO DAILY (Reported) Diltiazem HCl 180 Mg Cap.er.24h 180 MG PO DAILY (Reported) Docusate Sodium 100 Mg Capsule 100 MG PO HS (Reported) Furosemide 40 Mg Tablet 40 MG PO DAILY (Reported) Insulin NPH Human Isophane 100 Unit/1 Ml Vial 65 UNITS SQ BID (Reported) Insulin Regular, Human 100 Unit/1 Ml Vial 35 UNITS SQ DAILY (Reported) Insulin Regular, Human 100 Unit/1 Ml Vial 30 UNIT SC HS (Reported) Levothyroxine Sodium 150 Mcg Tablet 150 MCG PO DAILY (Reported) Montelukast Sodium 10 Mg Tablet 10 MG PO HS (Reported) Nitroglycerin 0.4 Mg Tab.subl 0.4 MG SL UD PRN PRN CHEST PAIN (Reported) Oxycodone HCl/Acetaminophen 1 Each Tablet 1 TAB PO Q4H PRN PRN PAIN (Reported) Pantoprazole Sodium 40 Mg Tablet.dr 40 MG PO DAILY (Reported) Simvastatin 40 Mg Tablet 20 MG PO HS (Reported) Vitamin B Complex 1 Each Tablet 1 TAB PO DAILY (Reported) Warfarin Sodium 5 Mg Tablet 5 MG PO MoTuFrSa (Reported) Warfarin Sodium 5 Mg Tablet 2.5 MG PO SuWeTh (Reported) TAKES 1/2 (5MG) TABLET Past Cnzplal-Glhwsz-Pqysvr Hx Patient Social History Alcohol Use: Rarely Uses Recreational Drug Use: No Smoking Status: Former Smoker Type Used: Cigarettes Former Smoker/When Quit: May 04, 2011 2nd Hand Smoke Exposure: No Recent Foreign Travel: No Contact w/Someone Who Travel: No Recent Infectious Disease Expo: No Recent Hopitalizations: No Physical Abuse Screen: No Sexual Abuse: No Immunizations Up To Date PED Vaccines UTD: Yes Date of Pneumonia Vaccine: Dec 03, 2013 Date of Influenza Vaccine: Dec 04, 2015 Seasonal Allergies Seasonal Allergies: No Surgeries HX Surgeries: Yes Surgeries: Adenoidectomy, Appendectomy, Cardiac, Coronary Stent, Gallbladder, Hysterectomy, Joint Replacement, Oophorectomy, Orthopedic, Thyroidectomy, Tonsillectomy, Vascular Surgery Respiratory Hx Respiratory Disorders: Yes (SLEEP APNEA, O2 AT 3L/NC CONTINUOUSLY) Respiratory Disorders: Sleep Apnea, COPD, Emphysema Cardiovascular Hx Cardiac Disorders: Yes Cardiac Disorders: Atrial Fibrillation, Chronic Edema/Swelling, Coronary Artery Disease, Heart Attack, High Cholesterol, Hypertension, Peripheral Vascular Neurological Hx Neurological Disorders: No Reproductive System : No Hx Reproductive Disorders: No Sexually Transmitted Disease: No Genitourinary Hx Genitourinary Disorders: Yes Genitourinary Disorders: Renal Failure Gastrointestinal Hx Gastrointestinal Disorders: Yes Gastrointestinal Disorders: Ulcer Musculoskeletal Hx Musculoskeletal Disorders: Yes Musculoskeletal Disorders: Arthritis Endocrine Hx Endocrine Disorders: Yes (S/P THYROIDECTOMY) Endocrine Disorders: Diabetes, Insulin dep, Hypothyroidsim HEENT HX ENT Disorders: No Cancer Hx Cancer: No Psychosocial Hx Psychiatric Problems: Yes Behavioral Health Disorders: Anxiety, Depression Integumentary HX Skin/Integumentary Disorder: No Blood Transfusions Hx Blood Disorders: No Adverse Reaction to a Blood Tr: No Reviewed Nursing Assessment Reviewed/Agree w Nursing PMH: Yes Family Medical History Significant Family History: Heart Disease, COPD, Diabetes, Hypertension Family Medial History: Diabetes mellitus G8 SISTER, Age:57 Respiratory disorder G8 BROTHER, Age:75 Physical Exam-General Problems Physical Exam Vital Signs Vital Sign - Last 12Hours 03/26/16 08:49 Temp 98.5 Pulse 70 Resp 24 B/P 92/33 Pulse Ox 88 O2 Delivery Nasal Cannula O2 Flow Rate 3.00 Capillary Refill : General Appearance: no apparent distress Extremities: other (R knee: midline scar, full ROM, pain with palpation anteriorlateral aspect, no patellar ballotment, NVSI, 2/4 DP, PT, no signs of trauma, skin intact, no erythema) Assessment/Plan Assessment/Plan Admission Diagnosis/Plan ASSESSMENT: R knee pain PLAN: CSI injection given today: under sterile conditions 4 cc of betamethasone was injected via an inferolateral patellar approach utilizing a 22 guage needle. WBAT f/u as outpatient with dr fritz if pain persists OTC NSAIDs for pain control counseled regarding signs of infection and need for urgent f/u if suspected Clinical Quality Measures DVT/VTE Risk/Contraindication: Risk Factor Score Per Nursin RFS Level Per Nursing on Admit: 4+=Very High MIKA ARRIAZA DO Mar 29, 2016 08:54
--- NOTE | 2016-03-29 09:27 | Discharge Inst-Cardiology ---
Discharge Inst-Cardiac Discharge Medications Continued Medications: Albuterol Sulfate (Ventolin Hfa) 18 Gm Hfa.aer.ad 2 PUFF IH QID PRN SHORTNESS OF BREATH INHALER Allopurinol (Allopurinol) 100 Mg Tablet 100 MG PO DAILY TAB Aspirin (Aspirin EC) 81 Mg Tablet.dr 81 MG PO HS TAB Calcitriol (Calcitriol) 0.25 Mcg Capsule 0.25 MCG PO MoWeFrSa CAP Cetirizine HCl (Cetirizine HCl) 10 Mg Tablet 10 MG PO HS TAB Cholecalciferol (Vitamin D3) (Vitamin D3) 1,000 Unit Capsule 1000 UNIT PO DAILY CAP Citalopram Hydrobromide (Citalopram HBr) 20 Mg Tablet 20 MG PO DAILY TAB Clotrimazole/Betamethasone Dip (Clotrimazole-Betamethasone Crm) 15 Gm Cream..g. TOP DAILY PRN RASH EA Cyanocobalamin (Vitamin B-12) (Vitamin B-12) 1,000 Mcg Tablet 1000 MCG PO DAILY TAB Diltiazem HCl (Cartia Xt) 180 Mg Cap.er.24h 180 MG PO DAILY CAP Docusate Sodium (Colace) 100 Mg Capsule 100 MG PO HS CAP Furosemide (Furosemide) 40 Mg Tablet 40 MG PO DAILY TAB Insulin NPH Human Isophane (Novolin N) 100 Unit/1 Ml Vial 65 UNITS SQ BID EA Insulin Regular, Human (Novolin R) 100 Unit/1 Ml Vial 35 UNITS SQ DAILY EA Insulin Regular, Human (Novolin R) 100 Unit/1 Ml Vial 30 UNIT SC HS VIAL Levothyroxine Sodium (Levothyroxine Sodium) 150 Mcg Tablet 150 MCG PO DAILY TAB Montelukast Sodium (Montelukast Sodium) 10 Mg Tablet 10 MG PO HS TAB Nitroglycerin (Nitrostat) 0.4 Mg Tab.subl 0.4 MG SL UD PRN CHEST PAIN TAB Oxycodone HCl/Acetaminophen (Percocet 5-325 mg Tablet) 1 Each Tablet 1 TAB PO Q4H PRN PAIN TAB Pantoprazole Sodium (Pantoprazole Sodium) 40 Mg Tablet.dr 40 MG PO DAILY TAB-CAP Simvastatin (Simvastatin) 40 Mg Tablet 20 MG PO HS TAB Vitamin B Complex (Vitamin B Complex) 1 Each Tablet 1 TAB PO DAILY TAB Discontinued Medications: Warfarin Sodium (Warfarin Sodium) 5 Mg Tablet 5 MG PO MoTuFrSa TAB Warfarin Sodium (Warfarin Sodium) 5 Mg Tablet 2.5 MG PO SuWeTh TAKES 1/2 (5MG) TABLET TAB Patient Instructions Patient Instructions: Lab: CBC on Friday, April 01, 2016 F/U appt to see Dr. Ludwig next week SANAM BROWN Mar 29, 2016 09:27
--- NOTE | 2016-03-29 09:37 | Progress Note-Cardiology ---
Cardiology SOAP Progress Note Subjective: In bed. States she feels better this morning. No c/o CP, palpitations, syncope or near syncope. Dyspnea is back to her baseline. C/O right knee pain. Objective: I&O/Vital Signs Vital Sign - Last 12Hours 03/29/16 03/29/16 03/29/16 03/29/16 04:00 08:50 09:07 12:00 Temp 98.5 98.7 98.9 Pulse 80 84 97 Resp 19 19 20 B/P 136/69 133/77 144/74 Pulse Ox 91 91 90 91 O2 Delivery NIV/CPAP NIV/CPAP Nasal Cannula O2 Flow Rate 10.00 Intake and Output 03/29/16 00:00 Intake Total 2000 ml Output Total 1000 ml Balance 1000 ml Weight (Pounds): 292 Weight (Ounces): 9.6 Weight (Calculated Kilograms): 132.719456 Constitutional: appears stated ageNo apparent distress, well-developed well- nourished Respiratory: No accessory muscle use, No respiratory distress, chest expansion is symmetric chest is bilaterally symmetric crackles (lower lobes bilat; hemoptysis) wheezing (scattered exp) other (good air entry; hemoptysis) Cardiovascular: irregularly irregularNo JVD, S1 and S2 systolic murmur Gastrointestional: No tender, soft roundNo spleenomegaly Extremities: No clubbing, No cyanosis, significant edema (mild edema right knee) Neurologic/Psychiatric: alert oriented x 3 power is 5/5 both on sides Skin: pallorNo rash, No ulcerations Results/Procedures: Labs Laboratory Tests 03/28/16 15:57: Stool Occult Blood Immunoassay NEGATIVE 03/28/16 16:05: Glucometer 137H 03/28/16 20:36: Glucometer 143H 03/29/16 05:19: Anion Gap 13, BUN/Creatinine Ratio 24, Blood Urea Nitrogen 47H, Calcium Level 8.5, Carbon Dioxide Level 24, Chloride Level 104, Creatinine 1.95H, Estimat Glomerular Filtration Rate 25, Glucose Level 96, Hematocrit 35, Hemoglobin 11.1L , INR Comment 1.2, Mean Corpuscular Hemoglobin 27, Mean Corpuscular Hemoglobin Concent 31L, Mean Corpuscular Volume 85, Mean Platelet Volume 10.3, Platelet Count 245, Potassium Level 3.5L, Prothrombin Time 14.7, Red Blood Count 4.14L, Red Cell Distribution Width 19.3H, Sodium Level 141, White Blood Count 17.0H 03/29/16 05:29: Glucometer 105 03/29/16 11:06: Lab Scanned Report Transfusion Reaction Form 03/29/16 12:05: Glucometer 243H Microbiology 03/26/16 MRSA Screen - Final, Complete MRSA not isolated A/P: Assessment: Severe anemia of undetermined etiology - can not exclude blood loss - H/H improved following transfusion of 6 units PRBC (11.1 today) Increasing exertional shortness of breath - somewhat improved Hemoptysis Leucocytosis of undetermined etiology Episode of near syncope likely d/t orthostatic hypotension r/t medications - no further episodes since discontinuation of antihypertensives PAF with a controlled rate per 30 day event monitor transmissions of March 2015 COPD Echocardiogram from July 2015 showed LVEF 65%. Mild TR. Mitral valve sclerosis and aortic valve sclerosis, mild, without evidence of significant valvular stenosis. PASP approx 30mmHg H/o intestinal angina, resolved following PCI to sup mesenteric and celiac arteries in Sep 2012 CKD stage IV. Chronic renal failure, managed by her magnetic prospector Dr Hastings H/o VERENICE. Has had renal artery stents in 2008. Most recently had right renal artery stenting by Dr Foster in Sep 2012 CAD. POBA of RPL in 04/29, NAGA of RCA in 07/29. Last cath in April 2014 showed diffuse mild to moderate disease. There is a patent stent in the mid RCA and distal to the stent, there is 50% stenosis in the RCA. The rest of the coronary vessels have diffuse mild to mod disease. Elevated LVEDP MPI of 6-2-16 showed no evidence of significant myocardial infarction or ischmeia. Normal regional wall motion. LVEF 55%. Normal LV cavity size Hypertension DM II, insulin requiring Sleep apnea, treated with CPAP Hypothyroidism, being treated H/o gout H/o left subclavian artery stenosis and retrograde flow in left vertebral artery H/o tobacco use; quit in Dec 2010 PAD, h/o aortobifem surgery in 1994 Carotid art stenoses, asymptomatic, bilat internal carotid artery stenoses of 60 -79% R ICA and 5-60% L ICA per November 2015 u/s. Chronic leg swelling due to venous insufficiency, stable Obesity with BMI approx 46 POLI of 10-15-15 showed low normal POLI, bilat Plan: Complex management issue Severe anemia of undetermined etiology, can not exclude blood loss; source undetermined. Hemoptysis is being managed by medical services and pulmonary services - bronchoscopy is scheduled for Friday as an outpatient Leucocytosis - management per medical services Occult stools (-) We will hold OAC for now until source of blood loss has been determined and treated, this does place her at increased risk for stroke, nevertheless in the setting of severe anemia which required 6 units of PRBC we feel source of bleeding needs to be determined and treated. We will continue ASA 81 mg. We have discussed with her all of the above in detail to which she determines understanding We advise close out patient f/u for now CBC as an outpatient We have spoken with Dr. Mclaughlin Physician Assessment Physician Assessment Lungs: fair to good air entry Cor: reg A&R * As documented in our note above. I discussed her case in detail with Dr Mclaughlin and reviewed Dr Vick's recs * Time spent on discharge, including discussion with Dr Mclaughlin, examining patient, speaking with patient, writing note, doing discharge, arranging outpatient follow ups, was 35 min (8:30-9:05) SANAM BROWN Mar 29, 2016 09:37 [facility]DEZ [facility] Mar 29, 2016 14:45 We will hold OAC for now until source of blood loss has been determined and treated, this does place her at increased risk for stroke, nevertheless in the setting of severe anemia which required 6 units of PRBC we feel source of bleeding needs to be determined and treated. We will continue ASA 81 mg. We have discussed with her all of the above in detail to which she determines understanding We advise close out patient f/u for now CBC as an outpatient We have spoken with SANAM Cruz Mar 29, 2016 09:37
--- NOTE | 2016-03-29 09:44 | Cardiology Discharge Summary ---
Diagnosis/Chief Complaint Date of Admission Mar 27, 2016 at 09:32 Date of Discharge 03/29/16 Admission Diagnosis Severe anemia of undetermined etiology - can not exclude blood loss Increasing exertional shortness of breath Episode of near syncope likely d/t orthostatic hypotension r/t medications - no further episodes since discontinuation of antihypertensives PAF with a controlled rate per 30 day event monitor transmissions of March 2015 COPD Echocardiogram from July 2015 showed LVEF 65%. Mild TR. Mitral valve sclerosis and aortic valve sclerosis, mild, without evidence of significant valvular stenosis. PASP approx 30mmHg H/o intestinal angina, resolved following PCI to sup mesenteric and celiac arteries in Sep 2012 CKD stage IV. Chronic renal failure, managed by her customer retention representative Dr Hastings H/o VERENICE. Has had renal artery stents in 2008. Most recently had right renal artery stenting by Dr Foster in Sep 2012 CAD. POBA of RPL in 04/29, NAGA of RCA in 07/29. Last cath in April 2014 showed diffuse mild to moderate disease. There is a patent stent in the mid RCA and distal to the stent, there is 50% stenosis in the RCA. The rest of the coronary vessels have diffuse mild to mod disease. Elevated LVEDP MPI of 6-2-16 showed no evidence of significant myocardial infarction or ischmeia. Normal regional wall motion. LVEF 55%. Normal LV cavity size Hypertension DM II, insulin requiring Sleep apnea, treated with CPAP Hypothyroidism, being treated H/o gout H/o left subclavian artery stenosis and retrograde flow in left vertebral artery H/o tobacco use; quit in Dec 2010 PAD, h/o aortobifem surgery in 1994 Carotid art stenoses, asymptomatic, bilat internal carotid artery stenoses of 60 -79% R ICA and 5-60% L ICA per November 2015 u/s. Chronic leg swelling due to venous insufficiency, stable Obesity with BMI approx 46 POLI of 10-15-15 showed low normal POLI, bilat Final/Discharge Diagnosis Severe anemia of undetermined etiology - can not exclude blood loss - H/H improved following transfusion of 6 units PRBC (11.1 today) Increasing exertional shortness of breath - somewhat improved Hemoptysis Leucocytosis of undetermined etiology Episode of near syncope likely d/t orthostatic hypotension r/t medications - no further episodes since discontinuation of antihypertensives PAF with a controlled rate per 30 day event monitor transmissions of March 2015 COPD Echocardiogram from July 2015 showed LVEF 65%. Mild TR. Mitral valve sclerosis and aortic valve sclerosis, mild, without evidence of significant valvular stenosis. PASP approx 30mmHg H/o intestinal angina, resolved following PCI to sup mesenteric and celiac arteries in Sep 2012 CKD stage IV. Chronic renal failure, managed by her customer retention representative Dr Hastings H/o VERENICE. Has had renal artery stents in 2008. Most recently had right renal artery stenting by Dr Foster in Sep 2012 CAD. POBA of RPL in 04/29, NAGA of RCA in 07/29. Last cath in April 2014 showed diffuse mild to moderate disease. There is a patent stent in the mid RCA and distal to the stent, there is 50% stenosis in the RCA. The rest of the coronary vessels have diffuse mild to mod disease. Elevated LVEDP MPI of 07-27-15 showed no evidence of significant myocardial infarction or ischmeia. Normal regional wall motion. LVEF 55%. Normal LV cavity size Hypertension DM II, insulin requiring Sleep apnea, treated with CPAP Hypothyroidism, being treated H/o gout H/o left subclavian artery stenosis and retrograde flow in left vertebral artery H/o tobacco use; quit in Dec 2010 PAD, h/o aortobifem surgery in 1994 Carotid art stenoses, asymptomatic, bilat internal carotid artery stenoses of 60 -79% R ICA and 5-60% L ICA per November 2015 u/s. Chronic leg swelling due to venous insufficiency, stable Obesity with BMI approx 46 POLI of 10-15-15 showed low normal POLI, bilat Chief Complaint/HPI Chief Complaint/HPI Ms. 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 She came in today for a scheduled cardiac cath d/t c/o increasing dyspnea. CBC drawn today showed severe anemia. Cardiac cath has been cancelled. She continues to report dyspnea. No c/o CP, palpitations, syncope or near syncope. No c/o LE edema today. She does not report any blood in her stools or dark, tarry bowel movements. She does report frequent nose bleeds which can last for up to 20 minutes. Discharge Summary Procedures None. Discharge Physical Examination Per progress note of 03-29-16 Hospital Course Ms. Willson was admitted d/t severe anemia of undetermined etiology. She had come into the cardiac analytical laboratory technician for cardiac cath. Lab draw showed severe anemia. She was admitted and give 6 units total of PRBC. Anemia improved to a hgb greater than 11.0. Dr. Mclaughlin was consulted. She was found to have hemoptysis. Therefore Dr. Vick was consulted. She is scheduled for outpatient bronchoscopy by Dr. Vick as an outpatient on Friday next week. Occult stool x1 was negative. Since her H/H has improved and overall she is feeling better we will discharge her home today with out patient f/u. We are withholding OAC d/t severe anemia of undetermined etiology until source is determined and treated. We will continue ASA 81mg daily. Pending Labs Laboratory Tests 03/29/16 05:19: Anion Gap 13, BUN/Creatinine Ratio 24, Blood Urea Nitrogen 47, Calcium Level 8.5 , Carbon Dioxide Level 24, Chloride Level 104, Creatinine 1.95, Estimat Glomerular Filtration Rate 25, Glucose Level 96, Hematocrit 35, Hemoglobin 11.1 , INR Comment 1.2, Mean Corpuscular Hemoglobin 27, Mean Corpuscular Hemoglobin Concent 31, Mean Corpuscular Volume 85, Mean Platelet Volume 10.3, Platelet Count 245, Potassium Level 3.5, Prothrombin Time 14.7, Red Blood Count 4.14, Red Cell Distribution Width 19.3, Sodium Level 141, White Blood Count 17.0 03/29/16 05:29: Glucometer 105 Laboratory Tests 03/28/16 04:19 03/29/16 05:19 NAME:MAE WILLSON [facility] REC#:[id number] PT STATUS:ADM IN :1945 PHYSICIAN: SANAM BROWN ADMIT DATE:03/27/16 Signed Date of Exam:03/28/16 CHEST PA/LAT (2 VIEW) Indication: Coughing up blood and difficulty breathing. PA and lateral obtained at 9:30 hours a.m. and compared with 07/26/2015. Findings: Cardiomegaly is again noted. There is chronic right hilar prominence. There is central vascular congestion with some right perihilar and basilar infiltrate. There is no pneumothorax or gross pleural fluid. Impression: Cardiomegaly with chronic right hilar prominence. Central vascular congestion with mild right perihilar and basilar infiltrate. Followup is suggested. Dictated by: Dictated on workstation # [id number] Dict:03/28/16 0932 Trans:03/28/16 1026 [facility] [id number] Interpreted by: JULIANNE TOBAR MD Electronically signed by:JULIANNE TOBAR MD 03/28/16 1028 Discussion & Recommendations Discussion Complex management issue Severe anemia of undetermined etiology, can not exclude blood loss; source undetermined. Hemoptysis is being managed by medical services and pulmonary services - bronchoscopy is scheduled for Friday as an outpatient Leucocytosis - management per medical services Occult stools (-) We will hold OAC for now until source of blood loss has been determined and treated, this does place her at increased risk for stroke, nevertheless in the setting of severe anemia which required 6 units of PRBC we feel source of bleeding needs to be determined and treated. We will continue ASA 81 mg. We have discussed with her all of the above in detail to which she determines understanding We advise close out patient f/u for now CBC as an outpatient We have spoken with Dr. Mclaughlin Home Medications Reviewed patient Home Medication Reconciliation Form Discharge Home Medications: Continued Medications: Albuterol Sulfate (Ventolin Hfa) 18 Gm Hfa.aer.ad 2 PUFF IH QID PRN SHORTNESS OF BREATH INHALER Allopurinol (Allopurinol) 100 Mg Tablet 100 MG PO DAILY TAB Aspirin (Aspirin EC) 81 Mg Tablet.dr 81 MG PO HS TAB Calcitriol (Calcitriol) 0.25 Mcg Capsule 0.25 MCG PO MoWeFrSa CAP Cetirizine HCl (Cetirizine HCl) 10 Mg Tablet 10 MG PO HS TAB Cholecalciferol (Vitamin D3) (Vitamin D3) 1,000 Unit Capsule 1000 UNIT PO DAILY CAP Citalopram Hydrobromide (Citalopram HBr) 20 Mg Tablet 20 MG PO DAILY TAB Clotrimazole/Betamethasone Dip (Clotrimazole-Betamethasone Crm) 15 Gm Cream..g. TOP DAILY PRN RASH EA Cyanocobalamin (Vitamin B-12) (Vitamin B-12) 1,000 Mcg Tablet 1000 MCG PO DAILY TAB Diltiazem HCl (Cartia Xt) 180 Mg Cap.er.24h 180 MG PO DAILY CAP Docusate Sodium (Colace) 100 Mg Capsule 100 MG PO HS CAP Furosemide (Furosemide) 40 Mg Tablet 40 MG PO DAILY TAB Insulin NPH Human Isophane (Novolin N) 100 Unit/1 Ml Vial 65 UNITS SQ BID EA Insulin Regular, Human (Novolin R) 100 Unit/1 Ml Vial 35 UNITS SQ DAILY EA Insulin Regular, Human (Novolin R) 100 Unit/1 Ml Vial 30 UNIT SC HS VIAL Levothyroxine Sodium (Levothyroxine Sodium) 150 Mcg Tablet 150 MCG PO DAILY TAB Montelukast Sodium (Montelukast Sodium) 10 Mg Tablet 10 MG PO HS TAB Nitroglycerin (Nitrostat) 0.4 Mg Tab.subl 0.4 MG SL UD PRN CHEST PAIN TAB Oxycodone HCl/Acetaminophen (Percocet 5-325 mg Tablet) 1 Each Tablet 1 TAB PO Q4H PRN PAIN TAB Pantoprazole Sodium (Pantoprazole Sodium) 40 Mg Tablet.dr 40 MG PO DAILY TAB-CAP Simvastatin (Simvastatin) 40 Mg Tablet 20 MG PO HS TAB Vitamin B Complex (Vitamin B Complex) 1 Each Tablet 1 TAB PO DAILY TAB Discontinued Medications: Warfarin Sodium (Warfarin Sodium) 5 Mg Tablet 5 MG PO MoTuFrSa TAB Warfarin Sodium (Warfarin Sodium) 5 Mg Tablet 2.5 MG PO SuWeTh TAKES 1/2 (5MG) TABLET TAB Clinical Quality Measures DVT/VTE Risk/Contraindication: Risk Factor Score Per Nursin RFS Level Per Nursing on Admit: 4+=Very High SANAM BROWN Mar 29, 2016 09:44
[2016-03-29] MEDS: ALLOPURINOL 100 MG (ZYLOPRIM) TAB PO SCH (09:53)
[2016-03-29] MEDS: LEVOTHYROXINE 150 MCG (LEVOTHROID) TAB PO SCH (09:54)
[2016-03-29] MEDS: DILTIAZEM 180 MG (CARDIZEM CD) CAP PO SCH (09:54)
[2016-03-29] MEDS: VITAMIN B COMPLEX PO SCH (09:55)
[2016-03-29] MEDS: PANTOPRAZOLE 40 MG (PROTONIX) TAB PO SCH (09:56)
[2016-03-29] MEDS: VITAMIN B12 1000 MCG PO SCH (09:57)
[2016-03-29] MEDS: VITAMIN D3 1000 UNIT PO SCH (09:58)
[2016-03-29] MEDS: FUROSEMIDE 40 MG (LASIX) TAB PO SCH (09:59)
[2016-03-29] MEDS: DICLOFENAC 1% GEL 100 GM (VOLTAREN) TUBE TOP SCH (10:00)
[2016-03-29] MEDS: ASPIRIN E.C. 81 MG (ECOTRIN) TAB PO SCH (10:05)
[2016-03-29 12:00] VITALS: BP 144/74
[2016-03-29] MEDS: INSULIN NPH SQ SCH (12:19)
[2016-03-29] MEDS: inSUlin REGULAR (NovoLIN R) 1000 UNITS/10 ML VIAL SC SCH (12:19)
[2016-03-29] MEDS: CALCITRIOL 0.25 MCG PO SCH (12:23)
--- NOTE | 2016-03-29 12:30 | Diagnostic Imaging Report ---
PROCEDURE: CT chest without contrast. TECHNIQUE: Multiple contiguous axial images were obtained through the chest without the use of intravenous contrast. INDICATION: Hemoptysis, frequent nosebleeds. FINDINGS: There is extensive groundglass consolidation in both lungs. When compared to 02/05/2016, there is interval worsening with more involvement seen. There is no significant pleural effusion. There is stable enlargement of the right hilar lymph nodes from prior exams. This was evaluated with PET/CT with no hypermetabolism noted. This appears however worse compared to the prior study although accurate measurements are not feasible on this unenhanced exam. There is a mediastinal lymph node anterior to the superior vena cava measuring 2.1 x 1.7 cm, enlarged from the previous study measurements of 1.4 x 1.2 cm. There are enlarged infracarinal lymph nodes slightly more prominent compared to the previous study. There is a minimal pericardial effusion. The heart size is near the upper limits of normal. The thoracic aorta is normal in caliber. Surgical clips are seen in the gallbladder bed. The osseous structures appear grossly unremarkable. IMPRESSION: Extensive bilateral mixed-density consolidation mostly of groundglass density, worse compared to 02/05/2016. There is right hilar and mediastinal lymphadenopathy larger compared to the prior study. Worsening inflammatory pneumonitis such as eosinophilic pneumonitis or pulmonary alveolar proteinosis versus an atypical infection are possible considerations. Pulmonary hemorrhage may produce a similar picture as well. Bronchoalveolar carcinoma is a less likely differential possibility. Correlate clinically. Dictated by: Dictated on workstation # [id number]
[2016-03-29 14:00] VITALS: BP 144/74
--- OUTSIDE RECORDS SUMMARY | 2016-04-02 13:47 | XMS REPORT | Continuity of Care Document ---
Author Author [facility] Organization [facility] Address Unknown Phone Unavailable Care Team Providers Care Office Professional Name Role Phone PHIL MONTALVO MD PCP Insurance Providers Payer Name Policy Number Subscriber Name Relationship Wps Medicare [id number] Mae Willson 18 Self / Same As Patient [employer] Ins [id number] Mae Willson 18 Self / Same As Patient Advance Directives Directive Response Recorded Date/Time Advance Directives Yes 07/26/15 4:54pm Health Care Power of Costume Specialist No 07/26/15 4:54pm Organ Donor No 07/26/15 [...] Diet for 24 Hours: No Alcohol, No [place] Foods Drink 6-8 Glasses of Fluid/Day: Yes [...] Prescriptions See Medication Section Referrals [facility] (Unspecified) - 2 Weeks Reason(s) for Referral: Chest pain Intermittent atrial fibrillation PHIL MONTALVO MD (Unspecified) - 08/09/15 Reason(s) for Referral: Follow up appointment with Dr. Montalvo on 08-09-15 @ 1:15pm [facility] ([facility]pecified) - 08/10/15 Address: [address] [place] [address] [address] [place] [address] Reason(s) for Referral: Follow up [...] Type Severity Reaction Status Last Updated Penicillins ([id number]) Allergy Unknown Active 05/14/05 Immunizations Name Given Type Date of Pneumonia Vaccine 12/03/13 Historical Date of Influenza Vaccine 12/03/13 Historical Vital Signs Acute Vital Signs Vital Response Date/Time Temperature (Fahrenheit) 97.1 degrees F (97.6 - 99.5) 07/27/2015 4:55pm Temperature (Calculated Celsius) 36.16518 degrees C (36.4 - 37.5) 07/27/2015 3:51pm [...] 5.00 inches 07/27/2015 8:59am Height (Calculated Centimeters) 165.721370 cm 07/27/2015 8:59am Weight (Pounds) 283 pounds 07/27/2015 8:59am Weight (Ounces) 0.0 oz 07/27/2015 8:59am Weight (Calculated Grams) 738383.642 gm 07/27/2015 8:59am Weight (Calculated Kilograms) 128.755244 kilograms 07/27/2015 8:59am Calculated BMI 47.1 07/27/2015 [...] of electrocardiogram Active 07/27/15 KEARA HERNANDEZ MD [facility] Encounters Encounter Location Arrival/Admit Date Discharge/Depart Date Attending Provider Discharged Inpatient (obs) [facility] 07/26/15 3:35pm 4:55pm PHIL MONTALVO MD Discharged Recurring [facility] 04/13/15 1:04pm 11:59pm SANAM BROWN Recent Diagnosis Infected sebaceous cyst Intermittent atrial fibrillation
== END 2016-03-29 14:00 | disposition home or self-care (01) | DRG 812 ==
LOC: CATH 08:04 → ICU 10:05 → OBSVTOIN 03-27 09:15 → CATH 03-27 09:31 → ICU 03-27 09:31 → UNDOADMIN 03-27 09:32 → 4TH 03-27 16:06 → ICU 03-27 16:06 → UNDODISIN 03-29 14:00 → EDSTATUS 04-02 10:00
PROVIDERS: ADMIT Internal Medicine Cardiovascular Disease; ATTEND Internal Medicine Cardiovascular Disease
DX: D64.9 Anemia, unspecified (principal); J44.1 Chronic obstructive pulmonary disease with (acute) exacerbation; R04.2 Hemoptysis; I12.9 Hypertensive chronic kidney disease with stage 1 through stage 4 chronic kidney disease, or unspecified chronic kidney disease; N18.4 Chronic kidney disease, stage 4 (severe); E11.22 Type 2 diabetes mellitus with diabetic chronic kidney disease; E66.9 Obesity, unspecified; Z68.42 Body mass index [BMI] 45.0-49.9, adult; I48.0 Paroxysmal atrial fibrillation; I07.1 Rheumatic tricuspid insufficiency; I25.10 Atherosclerotic heart disease of native coronary artery without angina pectoris; E11.51 Type 2 diabetes mellitus with diabetic peripheral angiopathy without gangrene; I25.2 Old myocardial infarction; E89.0 Postprocedural hypothyroidism; I87.2 Venous insufficiency (chronic) (peripheral); D72.829 Elevated white blood cell count, unspecified; G47.30 Sleep apnea, unspecified; M10.9 Gout, unspecified; I65.23 Occlusion and stenosis of bilateral carotid arteries; E78.00 Pure hypercholesterolemia, unspecified; F41.9 Anxiety disorder, unspecified; F32.9 Major depressive disorder, single episode, unspecified; M17.11 Unilateral primary osteoarthritis, right knee; Z99.81 Dependence on supplemental oxygen; Z79.01 Long term (current) use of anticoagulants; Z87.11 Personal history of peptic ulcer disease; Z87.891 Personal history of nicotine dependence; Z79.4 Long term (current) use of insulin; Z95.5 Presence of coronary angioplasty implant and graft; Z95.828 Presence of other vascular implants and grafts
CPT/HCPCS: 36415; 71020; 71250; 73700; 80048; 80053; 80061; 82274; 82962; 85027; 85610; 85652; 85730; 86141; 86850; 86900; 86901; 86920; 87081; 93005; 94640; 94760; G0378

== ENCOUNTER 2016-04-02 10:00 | Outpatient (CLI) | payer MEDICARE, OTHER ==
--- OUTSIDE RECORDS SUMMARY | 2016-03-29 08:41 | XMS REPORT | Continuity of Care Document ---
Author Author [facility] Organization [facility] Address Unknown Phone Unavailable Care Team Providers Care Pulverizer Operator Name Role Phone PHIL MONTALVO MD PCP Insurance Providers Payer Name Policy Number Subscriber Name Relationship [employer] [id number] Mae Willson 18 Self / Same As Patient [employer] [id number] Mae Willson 18 Self / Same As Patient Advance Directives Directive Response Recorded Date/Time Advance Directives Yes 07/26/15 4:54pm Health Care Power of Web Merchandiser No 07/26/15 4:54pm Organ Donor No 07/26/15 [...] Diet for 24 Hours: No Alcohol, No [employer] Drink 6-8 Glasses of Fluid/Day: Yes [...] Prescriptions See Medication Section Referrals [facility] (Unspecified) - 2 Weeks Reason(s) for Referral: Chest pain Intermittent atrial fibrillation PHIL MONTALVO MD (Unspecified) - 08/09/15 Reason(s) for Referral: Follow up appointment with Dr. Monatlvo on 08-09-15 @ 1:15pm KEARA HERNANDEZ [facility] (Unspecified) - 08/10/15 Address: [address] [place] [address] [address] [place] [address] Reason(s) for Referral: Follow up [...] Type Severity Reaction Status Last Updated Penicillins ([id number]) Allergy Unknown Active 05/14/05 Immunizations Name Given Type Date of Pneumonia Vaccine 12/03/13 Historical Date of Influenza Vaccine 12/03/13 Historical Vital Signs Acute Vital Signs Vital Response Date/Time Temperature (Fahrenheit) 97.1 degrees F (97.6 - 99.5) 07/27/2015 4:55pm Temperature (Calculated Celsius) 36.18409 degrees C (36.4 - 37.5) 07/27/2015 3:51pm [...] 5.00 inches 07/27/2015 8:59am Height (Calculated Centimeters) 165.180233 cm 07/27/2015 8:59am Weight (Pounds) 283 pounds 07/27/2015 8:59am Weight (Ounces) 0.0 oz 07/27/2015 8:59am Weight (Calculated Grams) 842334.642 gm 07/27/2015 8:59am Weight (Calculated Kilograms) 128.707255 kilograms 07/27/2015 8:59am Calculated BMI 47.1 07/27/2015 [...] of electrocardiogram Active 07/27/15 KEARA HERNANDEZ MD [facility] Encounters Encounter Location Arrival/Admit Date Discharge/Depart Date Attending Provider Discharged Inpatient (obs) [facility] 07/26/15 3:35pm 4:55pm PHIL MONTALVO MD Discharged Recurring [facility] 04/13/15 1:04pm 11:59pm SANAM BROWN Recent Diagnosis Infected sebaceous cyst Intermittent atrial fibrillation
[~2016-04-02] VITALS: Ht 165.1 cm; Wt 132.7 kg
[~2016-04-02 10:00] MED LIST changes: +CARV3.122 PO; +CLOT15CR6 TOP; +CYAN10006 PO; +DILT180C54 PO; +INSU100V31 SC; +WARF-48 PO
--- OUTSIDE RECORDS SUMMARY | 2016-04-02 10:14 | XMS REPORT | Continuity of Care Document ---
Author Author [facility] Organization [facility] Address Unknown Phone Unavailable Care Team Providers Care Beaver Trapper Name Role Phone PHIL MONTALVO MD PCP Insurance Providers Payer Name Policy Number Subscriber Name Relationship Wps Medicare [id number] Mae Willson 18 Self / Same As Patient [employer] Ins [id number] Mae Willson 19 Self / Same As Patient Advance Directives Directive Response Recorded Date/Time Advance Directives Yes 07/26/15 4:54pm Health Care Power of Acoustical Tile Patternmaker No 07/26/15 4:54pm Organ Donor No 07/26/15 [...] Diet for 24 Hours: No Alcohol, No [place] Foods Drink 6-8 Glasses of Fluid/Day: Yes [...] (DC) Prescriptions See Medication Section Referrals [facility] (Unspecified) - 2 Weeks Reason(s) for Referral: Chest pain Intermittent atrial fibrillation PHIL MONTALVO MD (Unspecified) - 08/09/15 Reason(s) for Referral: Follow up appointment with Dr. Montalvo on 08-09-15 @ 1:15pm [facility] HERNANDEZ [facility] ([facility]pecified) - 08/10/15 Address: [address] [place] [address] [address] [place] [address] Reason(s) for Referral: Follow up [...] Type Severity Reaction Status Last Updated Penicillins ([id number]) Allergy Unknown Active 05/14/05 Immunizations Name Given Type Date of Pneumonia Vaccine 12/03/13 Historical Date of Influenza Vaccine 12/03/13 Historical Vital Signs Acute Vital Signs Vital Response Date/Time Temperature (Fahrenheit) 97.1 degrees F (97.6 - 99.5) 07/27/2015 4:55pm Temperature (Calculated Celsius) 36.98648 degrees C (36.4 - 37.5) 07/27/2015 3:51pm [...] 5.00 inches 07/27/2015 8:59am Height (Calculated Centimeters) 165.407939 cm 07/27/2015 8:59am Weight (Pounds) 283 pounds 07/27/2015 8:59am Weight (Ounces) 0.0 oz 07/27/2015 8:59am Weight (Calculated Grams) 200552.642 gm 07/27/2015 8:59am Weight (Calculated Kilograms) 128.459910 kilograms 07/27/2015 8:59am Calculated BMI 47.1 07/27/2015 [...] of electrocardiogram Active 07/27/15 KEARA HERNANDEZ MD [facility] Encounters Encounter Location Arrival/Admit Date Discharge/Depart Date Attending Provider Discharged Inpatient (obs) [facility] 07/26/15 3:35pm 4:55pm PHIL MONTALVO MD Discharged Recurring [facility] 04/13/15 1:04pm 11:59pm SANAM BROWN Recent Diagnosis Infected sebaceous cyst Intermittent atrial fibrillation
== END 2016-04-02 10:14 ==
LOC: PREOP 10:00
PROVIDERS: ATTEND Internal Medicine Critical Care Medicine
DX: Z01.818 Encounter for other preprocedural examination (principal); R13.10 Dysphagia, unspecified; R19.5 Other fecal abnormalities

== ENCOUNTER 2016-04-03 06:34 | Day surgery (SDC) | payer MEDICARE, OTHER ==
[~2016-04-03] VITALS: Ht 165.1 cm; Wt 134.0 kg
--- OUTSIDE RECORDS SUMMARY | 2016-04-03 06:38 | XMS REPORT | Continuity of Care Document ---
Author Author [facility] Organization [facility] Address Unknown Phone Unavailable Care Team Providers Care Railroad Operator Name Role Phone PHIL MONTALVO MD PCP Insurance Providers Payer Name Policy Number Subscriber Name Relationship Wps Medicare [id number] Mae Willson 18 Self / Same As Patient [employer] Ins [id number] Mae Willson 19 Self / Same As Patient Advance Directives Directive Response Recorded Date/Time Advance Directives Yes 07/26/15 4:54pm Health Care Power of Administrative Support Clerk No 07/26/15 4:54pm Organ Donor No 07/26/15 [...] Diet for 24 Hours: No Alcohol, No [place] Foods Drink 6-8 Glasses of Fluid/Day: Yes [...] (DC) Prescriptions See Medication Section Referrals [facility] (Unspecified) - 2 Weeks Reason(s) for Referral: Chest pain Intermittent atrial fibrillation PIHL MONTALVO MD (Unspecified) - 08/09/15 Reason(s) for Referral: Follow up appointment with Dr. Montalvo on 08-09-15 @ 1:15pm KEARA HERNANDEZ [facility] (Unspecified) - 08/10/15 Address: [address] [place] [address] [address] [place] [address] Reason(s) for Referral: Follow up [...] Type Severity Reaction Status Last Updated Penicillins ([id number]) Allergy Unknown Active 05/14/05 Immunizations Name Given Type Date of Pneumonia Vaccine 12/03/13 Historical Date of Influenza Vaccine 12/03/13 Historical Vital Signs Acute Vital Signs Vital Response Date/Time Temperature (Fahrenheit) 97.1 degrees F (97.6 - 99.5) 07/27/2015 4:55pm Temperature (Calculated Celsius) 36.14454 degrees C (36.4 - 37.5) 07/27/2015 3:51pm [...] 5.00 inches 07/27/2015 8:59am Height (Calculated Centimeters) 165.142945 cm 07/27/2015 8:59am Weight (Pounds) 283 pounds 07/27/2015 8:59am Weight (Ounces) 0.0 oz 07/27/2015 8:59am Weight (Calculated Grams) 282526.642 gm 07/27/2015 8:59am Weight (Calculated Kilograms) 128.713785 kilograms 07/27/2015 8:59am Calculated BMI 47.1 07/27/2015 [...] of electrocardiogram Active 07/27/15 KEARA HERNANDEZ MD [facility] Encounters Encounter Location Arrival/Admit Date Discharge/Depart Date Attending Provider Discharged Inpatient (obs) [facility] 07/26/15 3:35pm 4:55pm PHIL MONTALVO MD Discharged Recurring [facility] 04/13/15 1:04pm 11:59pm SANAM BRWON Recent Diagnosis Infected sebaceous cyst Intermittent atrial fibrillation
--- OUTSIDE RECORDS SUMMARY | 2016-04-03 06:38 | XMS REPORT | Continuity of Care Document ---
Author Author [facility] Organization [facility] Address Unknown Phone Unavailable Care Team Providers Care Grounds Manager Name Role Phone PHIL MONTALVO MD PCP Insurance Providers Payer Name Policy Number Subscriber Name Relationship Wps Medicare [id number] Mae Willson 19 Self / Same As Patient [employer] Ins [id number] Mae Willson 19 Self / Same As Patient Advance Directives Directive Response Recorded Date/Time Advance Directives Yes 07/26/15 4:54pm Health Care Power of Condominium Manager No 07/26/15 4:54pm Organ Donor No 07/26/15 [...] Diet for 24 Hours: No Alcohol, No [place] Foods Drink 6-8 Glasses of Fluid/Day: Yes [...] (DC) Prescriptions See Medication Section Referrals [facility] (Unspecified) - 2 Weeks Reason(s) for Referral: Chest pain Intermittent atrial fibrillation PHIL MONTALVO MD (Unspecified) - 08/09/15 Reason(s) for Referral: Follow up appointment with Dr. Montalvo on 08-09-15 @ 1:15pm [facility] (Unspecified) - 08/10/15 Address: [address] [place] [address] [address] [place] [address] Reason(s) for Referral: Follow up [...] Type Severity Reaction Status Last Updated Penicillins ([id number]) Allergy Unknown Active 05/14/05 Immunizations Name Given Type Date of Pneumonia Vaccine 12/03/13 Historical Date of Influenza Vaccine 12/03/13 Historical Vital Signs Acute Vital Signs Vital Response Date/Time Temperature (Fahrenheit) 97.1 degrees F (97.6 - 99.5) 07/27/2015 4:55pm Temperature (Calculated Celsius) 36.83834 degrees C (36.4 - 37.5) 07/27/2015 3:51pm [...] 5.00 inches 07/27/2015 8:59am Height (Calculated Centimeters) 165.057249 cm 07/27/2015 8:59am Weight (Pounds) 283 pounds 07/27/2015 8:59am Weight (Ounces) 0.0 oz 07/27/2015 8:59am Weight (Calculated Grams) 192460.642 gm 07/27/2015 8:59am Weight (Calculated Kilograms) 128.862655 kilograms 07/27/2015 8:59am Calculated BMI 47.1 07/27/2015 [...] Tracing only of electrocardiogram Active 07/27/15 KEARA HERNNADEZ MD [facility] Encounters Encounter Location Arrival/Admit Date Discharge/Depart Date Attending Provider Discharged Inpatient (obs) [facility] 07/26/15 3:35pm 4:55pm PHIL MONTALVO MD Discharged Recurring [facility] 04/13/15 1:04pm 11:59pm SANAM BROWN Recent Diagnosis Infected sebaceous cyst Intermittent atrial fibrillation
[2016-04-03] MEDS ORDERED: NALOXONE 0.4 MG/ML 1 ML (NARCAN) VIAL IVP PRN (06:45)
[2016-04-03] MEDS ORDERED: FLUMAZENIL (ROMAZICON) 0.1 MG/ML 5 ML VIAL INJ PRN (06:45)
[2016-04-03] MEDS ORDERED: MIDAZOLAM 2 MG/2 ML (VERSED) VIAL IVP PRN (06:45)
[2016-04-03] MEDS ORDERED: fentaNYL INJECTION 100 MCG/2 ML AMP IVP PRN (06:45)
[2016-04-03] MEDS ORDERED: HURRICAINE EXT TUBE (BENZOCAINE) XX PRN (06:45)
[2016-04-03] MEDS ORDERED: LIDOCAINE JELLY 2% (XYLOCAINE) 5 ML TUBE MM PRN (06:45)
[2016-04-03] MEDS ORDERED: NS IV 1000 ML 1,000 ML IV PRN (06:45)
[2016-04-03 06:50] VITALS: BP 139/101
[2016-04-03] MEDS ORDERED: NS IV 1000 ML 1,000 ML ONE (06:55)
[2016-04-03] MEDS ORDERED: DEXTROSE 50% 50 ML (IMS) SYR ONE (07:33)
--- NOTE | 2016-04-03 07:44 | Progress Note-Pre Operative ---
Pre-Operative Progress Note H&P Reviewed The H&P was reviewed, patient examined and no changes noted. Date H&P Reviewed: Apr 03, 2016 Time H&P Reviewed: 07:44 Pre-Operative Diagnosis: hemoptysis LAY REYES DO Apr 03, 2016 07:44
[2016-04-03] MEDS ORDERED: DEXTROSE 50% 50 ML (IMS) SYR IV ONE (07:45)
--- NOTE | 2016-04-03 07:45 | Pre-Op Note & Conscious Sedat ---
Pre-Operative Progress Note H&P Reviewed The H&P was reviewed, patient examined and no changes noted. Date H&P Reviewed: Apr 03, 2016 Time H&P Reviewed: 07:44 Conscious Sedation Pre-Proced Time Reviewed: 07:44 ASA Class: 3 Airway Mallampati Classification: ([place] appropriate class) I. II. III, IV Lungs Heart ASA score ASA 1: a normal healthy patient ASA 2: a patient with a mild systemic disease (mid diabetes, controlled hypertension, obesity ASA 3: a patient with a severe systemic disease that limits activity (angina , COPD, prior Myocardial infarction) ASA 4: a patient with an incapacitating disease that is a constant threat to life (CHF, renal failure) ASA 5: a moribund patient not expected to survive 24 hrs. (ruptured aneurysm) ASA 6: a declared brain patient whose organs are being harvested. For emergent operations, add the letter E after the classification Grade 3 Sedation Plan: Analgesia, Amnesia, Plan communicated to team members, Discussed options with patient/fam, Discussed risks with patient/fam Note The patient is an appropriate candidate to undergo the planned procedure, sedation, and anesthesia. The patient immediately re-assessed prior to indication. LAY REYES DO Apr 03, 2016 07:45
[2016-04-03] MEDS ORDERED: fentaNYL INJECTION 100 MCG/2 ML AMP ONE ×3 (07:58→09:23)
[2016-04-03] MEDS ORDERED: MIDAZOLAM 2 MG/2 ML (VERSED) VIAL ONE ×3 (07:59)
[2016-04-03] MEDS ORDERED: SUCCINYLCHOLINE INJ 100 MG/5 ML SYR ONE (08:05)
[2016-04-03] MEDS ORDERED: proPOfol 200 MG/20 ML (DIPRIVAN) VIAL IV ONE (08:06)
[2016-04-03] MEDS ORDERED: EPINEPHrine INJECTION 1 MG/ML AMP ONE (08:27)
[2016-04-03] MEDS ORDERED: ALBUTEROL INHALER HFA (VENTOLIN HFA) 8 GM IH ONE (08:27)
[2016-04-03] MEDS ORDERED: ROCURONIUM 50 MG/5 ML (ZEMURON) VIAL IV ONE (08:32)
[2016-04-03] MEDS ORDERED: SEVOFLURANE (ULTANE) 15 ML INHAL SOLN ONE (08:38)
[2016-04-03] MEDS ORDERED: PHENYLEPHRINE 100 MCG/ML 10 ML (ANESTHESIA) SYR ONE (08:44)
[2016-04-03] MEDS ORDERED: NS IV 500 ML 500 ML ONE (08:46)
[2016-04-03 08:50] LABS: BASOPHILS % (AUTO) 0 % (0-10); EOSINOPHILS # (AUTO) 0.4 10^3/uL (0.0-0.3); EOSINOPHILS % (AUTO) 3 % (0-10); LYMPHOCYTES # (AUTO) 3.1 X 10^3 (1.0-4.0); LYMPHOCYTES % (AUTO) 21 % (12-44); MEAN CORPUSCULAR HGB CONC 31 G/DL (32-36); MEAN CORPUSCULAR VOLUME 88 FL (80-99); MEAN PLATELET VOLUME 10.4 FL (7.4-10.4); MONOCYTES # (AUTO) 1.1 X 10^3 (0.0-1.0); MONOCYTES % (AUTO) 7 % (0-12); NEUTROPHILS % (AUTO) 68 % (42-75); RED CELL DISTRIBUTION WIDTH 20.7 % (10.0-14.5)
[2016-04-03 08:52] LABS: MEAN CORPUSCULAR HEMOGLOBIN 27 PG (25-34); PLATELET COUNT 142 10^3/uL (130-400); RED BLOOD COUNT 4.72 10^6/uL (4.35-5.85); WHITE BLOOD COUNT 16.3 10^3/uL (4.3-11.0)
[2016-04-03] MEDS ORDERED: D5 1/2 NS 1000 ML IV SOLUTION 1,000 ML IV ONE (09:13)
[2016-04-03] MEDS ORDERED: PROPOFOL DRIP (ICU) 100 ML IV ONE ×2 (09:22→14:23)
[2016-04-03 09:25] VITALS: BP 134/114
[2016-04-03 09:37] LABS: ANISOCYTOSIS MODERATE; BAND NEUTROPHILS 20 %; EOSINOPHILS % (MANUAL) 0 %; LYMPHOCYTES % (MANUAL) 3 %; NEUTROPHILS % (MANUAL) 5 %; POLYCHROMASIA SLIGHT
[2016-04-03 09:44] LABS: ALBUMIN 3.2 G/DL (3.2-4.5); BILIRUBIN,TOTAL 0.8 MG/DL (0.1-1.0); CALCIUM 8.1 MG/DL (8.5-10.1); CREATININE SERUM 1.42 MG/DL (0.60-1.30); MAGNESIUM 2.1 MG/DL (1.8-2.4); POTASSIUM 4.1 MMOL/L (3.6-5.0); TOTAL PROTEIN 6.5 G/DL (6.4-8.2)
[2016-04-03] MEDS ORDERED: DILTIAZEM DRIP 100 MG in SODIUM CHLORIDE (ADD-VANTAGE) 100 ML IV SCH (09:45)
[2016-04-03] MEDS ORDERED: RT-ALBUTEROL/IPRATROPIUM 3 ML (DUONEB) VIAL INH PRN (10:30)
[2016-04-03] MEDS ORDERED: RT-ALBUTEROL/IPRATROPIUM 3 ML (DUONEB) VIAL ONE (10:31)
--- NOTE | 2016-04-03 10:40 | Consultation-Cardiology ---
HPI-Cardiology Cardiology Consultation: Date of Consultation 04/03/16 Date of Admission 04-03-16 Attending Physician Jim Vick DO Admitting Physician Ronda Mclaughlin MD Consulting Physician Ivett Ludwig MD HPI: Chief Complaint: A-fib with RVR Ms. Gastelum is a 71 year old female who has been admitted to ICU 9 post bronchoscopy. She is currently intubated and sedated. We have spoke with Dr. Vick of pulmonary services. She was undergoing bronchoscopy today. She received sedation with anesthesia and became hypotensive. Pulse was not palpable and chest compressions were initiated with return of pulse, respirations and blood pressure. She is currently in a-fib with RVR. She is awaiting transfer to tertiary care facility. Review of Systems-Cardiology Review of Systems Other comments Unable to obtain d/t intubation/sedation CQH-Isvnzh-Xhmaoc Hx Patient Social History Alcohol Use: Denies Use Recreational Drug Use: No Smoking Status: Former Smoker Former smoker/When Quit: May 04, 2011 Type Used: Cigarettes 2nd Hand Smoke Exposure: No Recent Foreign Travel: No Recent Infectious Disease Expo: No Physical Abuse Screen: No Sexual Abuse: No Immunizations Up To Date Date of Pneumonia Vaccine: Dec 03, 2013 Date of Influenza Vaccine: Dec 04, 2015 Past Medical History PMH As described under Assessment. Family Medical History Family Medical History: She does not report family h/o early CAD Family History: Diabetes mellitus G8 SISTER, Age:57 Respiratory disorder G8 BROTHER, Age:75 Allergies and Home Medications Allergies Coded Allergies: Penicillins (Verified Allergy, Unknown, 04/02/16) Home Medications Albuterol Sulfate 18 Gm Hfa.aer.ad 2 PUFF IH QID PRN PRN SHORTNESS OF BREATH ( Reported) Allopurinol 100 Mg Tablet 100 MG PO DAILY (Reported) Aspirin 81 Mg Tablet.dr 81 MG PO HS (Reported) Calcitriol 0.25 Mcg Capsule 0.25 MCG PO MoWeFrSa (Reported) Cetirizine HCl 10 Mg Tablet 10 MG PO HS (Reported) Cholecalciferol (Vitamin D3) 1,000 Unit Capsule 1,000 UNIT PO DAILY (Reported) Citalopram Hydrobromide 20 Mg Tablet 20 MG PO DAILY (Reported) Clotrimazole/Betamethasone Dip 15 Gm Cream..g. TOP DAILY PRN PRN RASH (Reported ) Cyanocobalamin (Vitamin B-12) 1,000 Mcg Tablet 1,000 MCG PO DAILY (Reported) Diltiazem HCl 180 Mg Cap.er.24h 180 MG PO DAILY (Reported) Docusate Sodium 100 Mg Capsule 100 MG PO HS (Reported) Furosemide 40 Mg Tablet 40 MG PO DAILY (Reported) Insulin NPH Human Isophane 100 Unit/1 Ml Vial 65 UNITS SQ BID (Reported) Insulin Regular, Human 100 Unit/1 Ml Vial 35 UNITS SQ DAILY (Reported) Insulin Regular, Human 100 Unit/1 Ml Vial 30 UNIT SC HS (Reported) Levothyroxine Sodium 150 Mcg Tablet 150 MCG PO DAILY (Reported) Montelukast Sodium 10 Mg Tablet 10 MG PO HS (Reported) Nitroglycerin 0.4 Mg Tab.subl 0.4 MG SL UD PRN PRN CHEST PAIN (Reported) Oxycodone HCl/Acetaminophen 1 Each Tablet 1 TAB PO Q4H PRN PRN PAIN (Reported) Pantoprazole Sodium 40 Mg Tablet.dr 40 MG PO DAILY (Reported) Simvastatin 40 Mg Tablet 20 MG PO HS (Reported) Vitamin B Complex 1 Each Tablet 1 TAB PO DAILY (Reported) Physical Exam-Cardiology Physical Exam Vital Signs/I&O Vital Sign - Last 12Hours 04/03/16 04/03/16 04/03/16 04/03/16 06:50 09:25 10:05 10:24 Temp 98.3 Pulse 101 110 164 71 Resp 24 21 B/P 139/101 127/77 Pulse Ox 92 90 O2 Delivery Nasal Cannula O2 Flow Rate 5.00 FiO2 80 04/03/16 04/03/16 04/03/16 04/03/16 10:47 12:24 13:00 14:26 Pulse 78 74 81 Resp 20 20 B/P 157/73 Pulse Ox 95 95 FiO2 80 80 Capillary Refill : Constitutional: appears stated age well-developed well-nourished HEENT: PERRL Neck: carotid bruit Respiratory: chest expansion is symmetric chest is bilaterally symmetric other (fair air entry; intubated) Cardiovascular: irregularly irregular S1 and S2 Gastrointestinal: No tender, soft round Extremities: no lower extremity edema bilateral Neurologic/Psychiatric: other (moves extremities) Data Review Labs Laboratory Tests 04/03/16 07:48: Glucometer 146H 04/03/16 08:25: Anisocytosis MODERATE, Band Neutrophils 20, Basophils # (Auto) 0.0, Basophils (% ) (Auto) 0, Eosinophils # (Auto) 0.4H, Eosinophils % (Manual) 0, Eosinophils (% ) (Auto) 3, Hematocrit 41, Hemoglobin 12.7, Lymphocytes # (Auto) 3.1, Lymphocytes % (Manual) 3, Lymphocytes (%) (Auto) 21, Mean Corpuscular Hemoglobin 27, Mean Corpuscular Hemoglobin Concent 31L, Mean Corpuscular Volume 88, Mean Platelet Volume 10.4, Monocytes # (Auto) 1.1H, Monocytes % (Manual) 4, Monocytes (%) (Auto) 7, Neutrophils # (Auto) 10.0H, Neutrophils % (Manual) 5, Neutrophils (%) (Auto) 68, Platelet Count 142, Polychromasia SLIGHT, Red Blood Count 4.72, Red Cell Distribution Width 20.7H, Smear Scan 68, White Blood Count 16.3H 04/03/16 09:09: Activated Partial Thromboplast Time 29, Alanine Aminotransferase (ALT/SGPT) 21, Albumin 3.2, Alkaline Phosphatase 67, Anion Gap 10, Aspartate Amino Transf (AST/ SGOT) 28, B-Type Natriuretic Peptide 321.9H, BUN/Creatinine Ratio 25, Blood Urea Nitrogen 36H, Calcium Level 8.1L, Carbon Dioxide Level 24, Chloride Level 108H, Creatinine 1.42H, Estimat Glomerular Filtration Rate 37, Glucose Level 102 , INR Comment 1.1, Lactic Acid Level 1.1, Magnesium Level 2.1, Potassium Level 4.1, Prothrombin Time 13.5, Sodium Level 142, Total Bilirubin 0.8, Total Protein 6.5 04/03/16 09:12: Glucometer 90 04/03/16 11:28: Erythrocyte Sedimentation Rate 20, Lactic Acid Level 1.0, Total Creatine Kinase 139 04/03/16 12:51: Glucometer 132H ECG Impression ECG Initial ECG Impression: Atrial Fibrillation w/RVR A/P-Cardiology Assessment/Admission Diagnosis S/P cardio-pulmonary arrest at time of bronchoscopy requiring intubation Pulmonary hemorrhage seen at time of bronch today - management per pulmonary services A-fib with RVR H/O severe anemia of undetermined etiology - can not exclude blood loss - H/H improved following transfusion of 6 units PRBC last week Increasing exertional shortness of breath - somewhat improved Hemoptysis Leucocytosis of undetermined etiology Episode of near syncope likely d/t orthostatic hypotension r/t medications - no further episodes since discontinuation of antihypertensives PAF with a controlled rate per 30 day event monitor transmissions of March 2015 COPD Echocardiogram from July 2015 showed LVEF 65%. Mild TR. Mitral valve sclerosis and aortic valve sclerosis, mild, without evidence of significant valvular stenosis. PASP approx 30mmHg H/o intestinal angina, resolved following PCI to sup mesenteric and celiac arteries in Sep 2012 CKD stage IV. Chronic renal failure, managed by her ore grader Dr Hastings H/o VERENICE. Has had renal artery stents in 2008. Most recently had right renal artery stenting by Dr Foster in Sep 2012 CAD. POBA of RPL in 04/29, NAGA of RCA in 07/29. Last cath in April 2014 showed diffuse mild to moderate disease. There is a patent stent in the mid RCA and distal to the stent, there is 50% stenosis in the RCA. The rest of the coronary vessels have diffuse mild to mod disease. Elevated LVEDP MPI of 6-2-16 showed no evidence of significant myocardial infarction or ischmeia. Normal regional wall motion. LVEF 55%. Normal LV cavity size Hypertension DM II, insulin requiring Sleep apnea, treated with CPAP Hypothyroidism, being treated H/o gout H/o left subclavian artery stenosis and retrograde flow in left vertebral artery H/o tobacco use; quit in Dec 2010 PAD, h/o aortobifem surgery in 1994 Carotid art stenoses, asymptomatic, bilat internal carotid artery stenoses of 60 -79% R ICA and 5-60% L ICA per November 2015 u/s. Chronic leg swelling due to venous insufficiency, stable Obesity with BMI approx 46 Discussion and Recomendations Complex management issue d/t multiple co-morbidities as listed above. A-fib with RVR. We will start Cardizem gtt for rate control. OAC is contraindicated d/t hemoptysis and pulmonary hemorrhage which is being managed by pulmonary services. She is currently awaiting transfer to tertiary care facility. Monitor lab closely. We would like to thank Dr. Vick for this consult. Further recommendations will be based on her hospital course. This consult is being scribed by Ev Beal APRN on behalf of Dr. Ludwig after discussion regarding plan of care. Physician Assessment Physician Assessment Lungs: fair air entry; diminished at the bases Cor: irreg Intubated and onech vent and only minimally responsive A&R * As documented in our note above * Complex management due to multiple, advanced comorbidities * I discussed her case in detail with SANAM Crawley Apr 03, 2016 10:40 IVETT LUDWIG MD [facility] Apr 03, 2016 16:58
[2016-04-03] MEDS ORDERED: D5 1/2 NS 1000 ML IV SOLUTION 1,000 ML IV SCH (10:45)
[2016-04-03] MEDS ORDERED: VANCOMYCIN INJECTION 0.1 MG in NS (IVPB) 250 ML IV SCH (10:45)
--- NOTE | 2016-04-03 10:45 | Pulmonary Consultation ---
History of Present Illness History of Present Illness Date of Consultation 04/03/16 10:39 Date of Admission History of Present Illness 71yo with hx of stage 4 kidney disease who has been having hemoptysis she over the past 3 months initially she thought it was secondary to frequent nose bleeds from oxygen and anticoagulation. When questioned about about hemoptysis she related to her frequent nosebleeds and anticoagulation. Pt was on Coumadin for Afib and Plavix secondary to hx of Carotid stenosis and CAD with stent placement. Last stent was 2004. Pt was taken off plavix and coumadin last week secondary to severe Anemia 6.6 03/26. She received 6 units of PRBC last week. Occult stool was negative. Pt underwent bronchoscopy today which showed scattered patchy areas of blood and BAL was bloody x 4. CT scan of chest shows bilateral worsening pulmonary infiltrates c/w 02/08. Pt has also been having progressive worsening SOB. Even after stopping anticoagulation she continues to have hemoptysis. During bronchoscopy anesthesia was delivering anesthesia and pt was intubated with size 8.0 ET tube. Procedure was stopped early secondary to pt becoming cardiac unstable. PT became hypotensive and no pulse was palpated. Chest compressions were delivered for about 3min. Pulse was then palpated. Allergies and Home Medications Allergies Coded Allergies: Penicillins (Verified Allergy, Unknown, 04/02/16) Home Medications Albuterol Sulfate 18 Gm Hfa.aer.ad 2 PUFF IH QID PRN PRN SHORTNESS OF BREATH ( Reported) Allopurinol 100 Mg Tablet 100 MG PO DAILY (Reported) Aspirin 81 Mg Tablet.dr 81 MG PO HS (Reported) Calcitriol 0.25 Mcg Capsule 0.25 MCG PO MoWeFr (Reported) Cetirizine HCl 10 Mg Tablet 10 MG PO HS (Reported) Cholecalciferol (Vitamin D3) 1,000 Unit Capsule 1,000 UNIT PO DAILY (Reported) Citalopram Hydrobromide 20 Mg Tablet 20 MG PO DAILY (Reported) Clotrimazole/Betamethasone Dip 15 Gm Cream..g. TOP DAILY PRN PRN RASH (Reported ) Cyanocobalamin (Vitamin B-12) 1,000 Mcg Tablet 1,000 MCG PO DAILY (Reported) Diltiazem HCl 180 Mg Cap.er.24h 180 MG PO DAILY (Reported) Docusate Sodium 100 Mg Capsule 100 MG PO HS (Reported) Furosemide 40 Mg Tablet 40 MG PO DAILY (Reported) Insulin NPH Human Isophane 100 Unit/1 Ml Vial 65 UNITS SQ BID (Reported) Insulin Regular, Human 100 Unit/1 Ml Vial 35 UNITS SQ DAILY (Reported) Insulin Regular, Human 100 Unit/1 Ml Vial 30 UNIT SC HS (Reported) Levothyroxine Sodium 150 Mcg Tablet 150 MCG PO DAILY (Reported) Montelukast Sodium 10 Mg Tablet 10 MG PO HS (Reported) Nitroglycerin 0.4 Mg Tab.subl 0.4 MG SL UD PRN PRN CHEST PAIN (Reported) Oxycodone HCl/Acetaminophen 1 Each Tablet 1 TAB PO Q4H PRN PRN PAIN (Reported) Pantoprazole Sodium 40 Mg Tablet.dr 40 MG PO DAILY (Reported) Simvastatin 40 Mg Tablet 20 MG PO HS (Reported) Vitamin B Complex 1 Each Tablet 1 TAB PO DAILY (Reported) Past Gljludj-Psfvqt-Gwwzqi Hx Patient Social History Alcohol Use: Denies Use Recreational Drug Use: No Smoking Status: Former Smoker Type Used: Cigarettes Former Smoker/When Quit: May 04, 2011 2nd Hand Smoke Exposure: No Recent Foreign Travel: No Contact w/Someone Who Travel: No Recent Infectious Disease Expo: No Recent Hopitalizations: Yes (HEART CATH, SEVERE ANEMIA) Physical Abuse Screen: No Sexual Abuse: No Immunizations Up To Date PED Vaccines UTD: Yes Date of Pneumonia Vaccine: Dec 03, 2013 Date of Influenza Vaccine: Dec 04, 2015 Seasonal Allergies Seasonal Allergies: No Surgeries HX Surgeries: Yes Surgeries: Adenoidectomy, Appendectomy, Cardiac, Coronary Stent, Gallbladder, Hysterectomy, Joint Replacement, Oophorectomy, Orthopedic, Thyroidectomy, Tonsillectomy, Vascular Surgery Respiratory Hx Respiratory Disorders: Yes (SLEEP APNEA, O2 AT 3L/NC CONTINUOUSLY) Respiratory Disorders: Sleep Apnea, COPD, Emphysema Cardiovascular Hx Cardiac Disorders: Yes Cardiac Disorders: Atrial Fibrillation, Chronic Edema/Swelling, Coronary Artery Disease, Heart Attack, High Cholesterol, Hypertension, Peripheral Vascular Neurological Hx Neurological Disorders: No Reproductive System Hx Reproductive Disorders: No Sexually Transmitted Disease: No Genitourinary Hx Genitourinary Disorders: Yes Genitourinary Disorders: Renal Failure Gastrointestinal Hx Gastrointestinal Disorders: Yes Gastrointestinal Disorders: Ulcer Musculoskeletal Hx Musculoskeletal Disorders: Yes Musculoskeletal Disorders: Arthritis Endocrine Hx Endocrine Disorders: Yes (S/P THYROIDECTOMY) Endocrine Disorders: Diabetes, Insulin dep, Hypothyroidsim HEENT HX ENT Disorders: No Cancer Hx Cancer: No Psychosocial Hx Psychiatric Problems: No Behavioral Health Disorders: Anxiety, Depression Integumentary HX Skin/Integumentary Disorder: No Blood Transfusions Hx Blood Disorders: No Adverse Reaction to a Blood Tr: No (HAS HAD BLOOD WITH NO REACTION) Family Medical History Significant Family History: Heart Disease, COPD, Diabetes, Hypertension Family Medial History: Diabetes mellitus G8 SISTER, Age:57 Respiratory disorder G8 BROTHER, Age:75 Review of Systems Constitutional: : Fever: Malaise: Weakness Respiratory: : Cough: Hemoptysis: SOB with excertion: Shortness of breath Cardiovascular: : Paroxysmal Noc. Dyspnea Exam Exam Vital Signs Date Time Temp Pulse Resp B/P Pulse Ox O2 Delivery O2 Flow Rate FiO2 04/03/16 10:24 71 04/03/16 10:05 164 127/77 04/03/16 09:25 110 21 90 80 04/03/16 06:50 98.3 101 24 139/101 92 Nasal Cannula 5.00 General Appearance: Mild Distress Other (sedated on vent ) HEENT: PERRL/EOMI TMs Normal Respiratory: Chest Non Tender No Accessory Muscle Use No Respiratory Distress Decreased Breath Sounds Gastrointestinal: non tender soft no organomegaly Results Lab Laboratory Tests 04/03/16 08:25 04/03/16 09:09 Assessment/Plan Assessment/Plan Acute respiratory failure requiring intubation probable pulmonary hemorrhage s/p bronchoscopy -YESENIA, ANCA, anti glomerular basement Antibodies, C3, C4, PT, PTT, INR, CRP, ESR -- obtained -Solumedrol 125mg IV Q6 Hypotension resulting in loss of pulse and is post CODE Blue -BP responded to IVF -Check echocardiogram Afib RVR -Cardizem gtt -Cardiology consulted CKD stage 4 -Pt is not on HD SIRS r/o SEpsis -wray cultures -start vanco and merrem [facility] does not have any beds available. [facility] was called and they except patient for transfer. 120min was spent with patient. LAY REYES DO Apr 03, 2016 10:44
[2016-04-03 10:47] VITALS: BP 134/124
[2016-04-03 10:54] LABS: INR 1.1 (0.8-1.4); PROTHROMBIN TIME PATIENT 13.5 SEC (12.2-14.7)
[2016-04-03] MEDS ORDERED: VANCOMYCIN 2000 MG/NS 500 ML IVPB IV NR ×2 (11:00)
--- NOTE | 2016-04-03 11:05 | Diagnostic Imaging Report ---
Portable upright radiograph of the chest. INDICATION: PICC line placement. FINDINGS: There is an endotracheal tube in place. There is a right PICC line directed towards the neck likely in the right IJ. The heart size is enlarged. Extensive bilateral infiltrates are seen, increased from 03/28/2016. IMPRESSION: Cardiomegaly. Extensive bilateral infiltrates could relate to pulmonary edema or pneumonitis. The right PICC line is directed towards the neck. The PICC line nurse is adjusting the line. Dictated by: Dictated on workstation # [id number]
--- NOTE | 2016-04-03 11:13 | Pulmonary Procedures ---
Pulmonary Procedures Date of Procedure Date of Service: Apr 03, 2016 Bronch Bronchoscopy with bronchoalveolar lavage (BAL), transbronchial washes and, brushes. Preop DX Hemoptysis Postop DX: same + probable pulmonary hemorrhage Complications: Pt became severely hypotensive during procedure and pulse could not be palpated. Chest compressions were only done for about 3 min until pulse became palatable Pt was sedated per anesthesia and was intubated. Bronchoscope was advanced through the endotracheal tube . An anatomical tour was undertaken down to the segmental bronchi bilaterally. No endobronchial lesions noted. From the RUL a bronchoalveolar lavage (BAL) x 4 each BAL was consistently bloody. . There were scattered areas of blood throughout. Pt became severely hypotensive during procedure and pulse could not be palpated. Chest compressions were only done for about 3 min until pulse became palatable Stat CXR is pending. Pt was transferred to ICU on ventilator to be stabilized. LAY REYES DO Apr 03, 2016 11:13
--- NOTE | 2016-04-03 11:19 | Diagnostic Imaging Report ---
Portable upright radiograph of the chest. INDICATION: Repositioning PICC line. FINDINGS: Right PICC line now is in good position with the tip at the distal SVC level. The heart size is moderately enlarged. The ET tube is in place. There are extensive bilateral infiltrates again noted. No significant effusion. No pneumothorax. IMPRESSION: Cardiomegaly with extensive bilateral infiltrates. Dictated by: Dictated on workstation # [id number]
[2016-04-03] MEDS ORDERED: methylPREDNISolone 125 MG (Solu-MEDROL) VIAL IVP SCH ×2 (12:00→14:00)
--- NOTE | 2016-04-03 12:19 | Diagnostic Imaging Report ---
EXAMINATION: Portable upright radiograph of the chest. INDICATION: Verify orogastric tube placement. FINDINGS: ET tube and right PICC line are in place. Orogastric tube is seen with the tip below the level of the image in the upper left side of the abdomen. The heart size is moderately enlarged. Extensive bilateral infiltrates seen. No significant effusion or pneumothorax. IMPRESSION: Moderate cardiomegaly. Extensive bilateral infiltrates. Dictated by: Dictated on workstation # [id number]
[2016-04-03 12:24] VITALS: BP 128/84
[2016-04-03 14:26] VITALS: BP 157/73
[2016-04-03] MEDS ORDERED: RT-ALBUTEROL/IPRATROPIUM 3 ML (DUONEB) VIAL INH SCH (15:00)
[2016-04-04 07:58] LABS: C3 COMPLEMENT SERUM 120 mg/dL (73-183)
[2016-04-04 08:01] LABS: C4 COMPLEMENT SERUM 31 mg/dL (15-59)
--- NOTE | 2016-04-04 09:11 | ECHOCARDIOGRAPHY REPORT ---
PROCEDURE PHYSICIAN: FERDINAND MARIE DATE OF PROCEDURE: 04/03/2016 TWO DIMENSIONAL ECHOCARDIOGRAM REPORT PRIMARY PHYSICIAN: OTHER PHYSICIAN: REFERRING PHYSICIAN: Dr. Ronda Mclaughlin ORDERING PHYSICIAN: INDICATION FOR THE PROCEDURE: Shortness of breath. MEASUREMENTS DERIVED VALUES LV DIAMETER (LAX) NORMALS NORMALS Diastolic 4.1 (3.6-5.2) Eject. Fract. 50-55% (60%+/-6%) Systolic (2.3-3.9) Diastolic Vol. % Shortening (0.22-0.42) Systolic Vol. Aortic Root IVS THICKNESS Diastolic 1.5 (0.6-1.1) LVPW THICKNESS Diastolic 1.5 (0.6-1.1) LA DIAMETER Systolic 3.9 (2.1-3.7) FINDINGS: 1. Technically difficult study. 2. The left ventricle is normal in size with severe left ventricular hypertrophy noted diffusely. Systolic function is preserved. Estimated ejection fraction 50 to 55%. Diastolic dysfunction is suggested by Doppler. 3. The left atrium is in the upper normal limit in size. No clot or thrombus were seen within the left atrium. 4. The right atrium and right ventricle are normal in size. No clot or thrombus were seen within the right side. 5. Mitral valve is calcified with mild mitral regurgitation noted by color Doppler flow. No mitral valve prolapse. No mitral valve stenosis. 6. Aortic valve leaflets were not well visualized. No significant aortic valve stenosis was noted. Mild aortic regurgitation. 7. Tricuspid valve is normal in morphology with mild tricuspid regurgitation noted by color Doppler flow. Doppler across tricuspid valve estimated pulmonary artery pressure of 23+ right atrial pressure. 8. Pulmonic valve is functioning normally. 9. No pericardial effusion. IN CONCLUSION: 1. Moderate to severe left ventricular hypertrophy with speckled pattern in the myocardium suggestive of infiltrative disease. Systolic function is preserved. Estimated ejection fraction 50 to 55%. Diastolic dysfunction is suggested by Doppler. 2. Left atrium is in the upper normal limit in size. 3. 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 Aortic valve sclerosis. No aortic stenosis. Mild aortic regurgitation, mild tricuspid regurgitation. 4. Estimated pulmonary artery pressure of 30 mmHg. Job ID: [id number] Dictated Date: 04/03/2016 16:29:19 Courtroom Deputy Or Calendar Clerk Date: 04/04/2016 09:08:40 / jerson
[2016-04-04] MEDS ORDERED: TROUGH ORDER-PHARMACY XX NR (10:00)
[2016-04-04] MEDS ORDERED: VANCOMYCIN 1 GM/NS 250 ML IVPB IV SCH ×2 (11:00)
[2016-04-04 13:48] LABS: CH50 COMPLEMENT TOTAL 518 Units/mL (400-700)
[2016-04-05 09:04] LABS: ANCA PATTERN Not Indicated; ANTI NEUTROPHIL CYTOPLASM <1:20 (<1:20)
== END 2016-04-03 15:00 | disposition short-term general hospital (02) ==
LOC: ENDO 06:34 → ICU 08:55 → ENDO 15:00
PROVIDERS: ATTEND Internal Medicine Critical Care Medicine
DX: R04.2 Hemoptysis (principal); I46.9 Cardiac arrest, cause unspecified; J96.00 Acute respiratory failure, unspecified whether with hypoxia or hypercapnia; R04.89 Hemorrhage from other sites in respiratory passages; I95.9 Hypotension, unspecified; I48.91 Unspecified atrial fibrillation; D64.9 Anemia, unspecified; I12.9 Hypertensive chronic kidney disease with stage 1 through stage 4 chronic kidney disease, or unspecified chronic kidney disease; N18.4 Chronic kidney disease, stage 4 (severe); R65.20 Severe sepsis without septic shock; E11.9 Type 2 diabetes mellitus without complications; E03.9 Hypothyroidism, unspecified; I25.10 Atherosclerotic heart disease of native coronary artery without angina pectoris; I25.2 Old myocardial infarction; E78.00 Pure hypercholesterolemia, unspecified; I73.9 Peripheral vascular disease, unspecified; J44.9 Chronic obstructive pulmonary disease, unspecified; G47.33 Obstructive sleep apnea (adult) (pediatric); F32.9 Major depressive disorder, single episode, unspecified; F41.9 Anxiety disorder, unspecified; Z87.891 Personal history of nicotine dependence; Z95.5 Presence of coronary angioplasty implant and graft; E66.01 Morbid (severe) obesity due to excess calories; D72.829 Elevated white blood cell count, unspecified; Z79.4 Long term (current) use of insulin; I65.23 Occlusion and stenosis of bilateral carotid arteries; I87.2 Venous insufficiency (chronic) (peripheral); Z68.42 Body mass index [BMI] 45.0-49.9, adult; Z79.01 Long term (current) use of anticoagulants
CPT/HCPCS: 36415; 36569; 71010; 76937; 80053; 82550; 82962; 83605; 83735; 83880; 85007; 85027; 85610; 85652; 85730; 86021; 86160; 86162; 87040; 87070; 87101; 87116; 87205; 88112; 88305; 88312; 93306; 94002; 94640; 94799

== ENCOUNTER → 2016-05-23 | Outpatient (CLI) | payer MEDICARE, OTHER ==
--- NOTE | 2016-05-23 09:40 | Diagnostic Imaging Report ---
INDICATION: Back pain AP and lateral views of the lumbar spine are obtained. Lumbar vertebrae show no compression deformities. There is disc space narrowing at L3-4 and L2-3 and to lesser extent at L4-5. There is diffuse facet degenerative change from L3-S1. There is mild anterolisthesis of L4 on L5 by about 3-4 mm. There is mild retrolisthesis of L2 on L3 by about 2-3 mm. IMPRESSION: Multilevel degenerative changes in the lumbar spine as described above. No overt acute bony abnormality. Dictated by: Dictated on workstation # [id number]
== END ==
LOC: RAD 08:52
PROVIDERS: ATTEND Nurse Practitioner Family
DX: M47.816 Spondylosis without myelopathy or radiculopathy, lumbar region (principal)
CPT/HCPCS: 72100

== ENCOUNTER 2016-05-31 10:25 | Emergency (ER) | payer MEDICARE, OTHER ==
[~2016-05-31] VITALS: Ht 165.1 cm; Wt 126.6 kg
[2016-05-31] MEDS ORDERED: meTOprolol TARTRATE 25 MG (LOPRESSOR) TABLET PO ONE (10:45)
--- NOTE | 2016-05-31 10:45 | ED EENT ---
History of Present Illness General Chief Complaint: Nasal Problems Stated Complaint: NOSE BLEED Nursing Triage Note: c/o intermittant nosebleed since yesterday. On Coumadin Source: patient Exam Limitations: no limitations History of Present Illness Time seen by provider: 10:43 Initial Comments To ER with intermittent nosebleeds since yesterday. This began after sneezing. Initially it started on both sides but now seems to be only the right side. She is on Coumadin for atrial fibrillation. Timing/Duration: abrupt Severity: moderate Location: nose Allergies and Home Medications Allergies Coded Allergies: Penicillins (Verified Allergy, Unknown, 04/02/16) Home Medications Albuterol Sulfate 18 Gm Hfa.aer.ad, 2 PUFF IH QID PRN for SHORTNESS OF BREATH, ( Reported) Allopurinol 100 Mg Tablet, 100 MG PO DAILY, (Reported) Aspirin 81 Mg Tablet.dr, 81 MG PO HS, (Reported) Calcitriol 0.25 Mcg Capsule, 0.25 MCG PO MoWeFrSa, (Reported) Cetirizine HCl 10 Mg Tablet, 10 MG PO HS, (Reported) Cholecalciferol (Vitamin D3) 1,000 Unit Capsule, 1,000 UNIT PO DAILY, (Reported) Citalopram Hydrobromide 20 Mg Tablet, 20 MG PO DAILY, (Reported) Clotrimazole/Betamethasone Dip 15 Gm Cream..g., TOP DAILY PRN for RASH, ( Reported) Cyanocobalamin (Vitamin B-12) 1,000 Mcg Tablet, 1,000 MCG PO DAILY, (Reported) Diltiazem HCl 180 Mg Cap.er.24h, 180 MG PO DAILY, (Reported) Docusate Sodium 100 Mg Capsule, 100 MG PO HS, (Reported) Furosemide 40 Mg Tablet, 40 MG PO DAILY, (Reported) Insulin NPH Human Isophane 100 Unit/1 Ml Vial, 65 UNITS SQ BID, (Reported) Insulin Regular, Human 100 Unit/1 Ml Vial, 35 UNITS SQ DAILY, (Reported) Insulin Regular, Human 100 Unit/1 Ml Vial, 30 UNIT SC HS, (Reported) Levothyroxine Sodium 150 Mcg Tablet, 150 MCG PO DAILY, (Reported) Montelukast Sodium 10 Mg Tablet, 10 MG PO HS, (Reported) Nitroglycerin 0.4 Mg Tab.subl, 0.4 MG SL UD PRN for CHEST PAIN, (Reported) Oxycodone HCl/Acetaminophen 1 Each Tablet, 1 TAB PO Q4H PRN for PAIN, (Reported) Pantoprazole Sodium 40 Mg Tablet.dr, 40 MG PO DAILY, (Reported) Simvastatin 40 Mg Tablet, 20 MG PO HS, (Reported) Vitamin B Complex 1 Each Tablet, 1 TAB PO DAILY, (Reported) Review of Systems Constitutional: see HPI Eyes: No Symptoms Reported Ears: No Symptoms Reported Nose: see HPI, clots, epistaxis Mouth: no symptoms reported Throat: no symptoms reported Respiratory: no symptoms reported Cardiovascular: no symptoms reported Musculoskeletal: no symptoms reported Past Qcdkzvi-Gogkzt-Voeuxx Hx Patient Social History Alcohol Use: Denies Use Recreational Drug Use: No Smoking Status: Never a Smoker Type Used: Cigarettes Former Smoker/When Quit: May 04, 2011 2nd Hand Smoke Exposure: No Recent Foreign Travel: No Contact w/Someone Who Travel: No Recent Infectious Disease Expo: No Recent Hopitalizations: Yes (HEART CATH, SEVERE ANEMIA) Immunizations Up To Date PED Vaccines UTD: Yes Date of Pneumonia Vaccine: Dec 03, 2013 Date of Influenza Vaccine: Dec 04, 2015 Seasonal Allergies Seasonal Allergies: No Surgeries HX Surgeries: Yes Surgeries: Adenoidectomy, Appendectomy, Cardiac, Coronary Stent, Gallbladder, Hysterectomy, Joint Replacement, Oophorectomy, Orthopedic, Thyroidectomy, Tonsillectomy, Vascular Surgery Respiratory Hx Respiratory Disorders: Yes (SLEEP APNEA, O2 AT 3L/NC CONTINUOUSLY) Respiratory Disorders: Sleep Apnea, COPD, Emphysema Cardiovascular Hx Cardiac Disorders: Yes Cardiac Disorders: Atrial Fibrillation, Chronic Edema/Swelling, Coronary Artery Disease, Heart Attack, High Cholesterol, Hypertension, Peripheral Vascular Neurological Hx Neurological Disorders: No Reproductive System : No Hx Reproductive Disorders: No Sexually Transmitted Disease: No Genitourinary Hx Genitourinary Disorders: Yes Genitourinary Disorders: Renal Failure Gastrointestinal Hx Gastrointestinal Disorders: Yes Gastrointestinal Disorders: Ulcer Musculoskeletal Hx Musculoskeletal Disorders: Yes Musculoskeletal Disorders: Arthritis Endocrine Hx Endocrine Disorders: Yes (S/P THYROIDECTOMY) Endocrine Disorders: Diabetes, Insulin dep, Hypothyroidsim HEENT HX ENT Disorders: No Cancer Hx Cancer: No Psychosocial Hx Psychiatric Problems: No Behavioral Health Disorders: Anxiety, Depression Integumentary HX Skin/Integumentary Disorder: No Blood Transfusions Hx Blood Disorders: No Adverse Reaction to a Blood Tr: No (HAS HAD BLOOD WITH NO REACTION) Family Medical History Significant Family History: Heart Disease, COPD, Diabetes, Hypertension Family Medial History: Diabetes mellitus G8 SISTER, Age:57 Respiratory disorder G8 BROTHER, Age:75 Physical Exam Vital Signs Vital Sign - Last 12Hours 05/31/16 10:32 Temp 97.5 Pulse 111 Resp 16 B/P (MAP) 161/71 O2 Delivery Room Air General Appearance: WD/WN, no apparent distress Eyes: bilateral eye EOMI, bilateral eye PERRL, bilateral eye normal inspection Ears: bilateral ear TM normal, bilateral ear auricle normal, bilateral ear canal normal Nose: active bleeding (from the right nostril without a visualized source anteriorly) Neck: non-tender, full range of motion Respiratory: no respiratory distress, no accessory muscle use Neurologic/Psychiatric: alert, normal mood/affect, oriented x 3 Skin: normal color, warm/dry Date of ETT Placement: Apr 03, 2016 Progress/Results/Core Measures Results/Orders Lab Results Laboratory Tests Test 05/31/16 10:55 Range/Units White Blood Count 14.0 H 4.3-11.0 10^3/uL Red Blood Count 4.36 4.35-5.85 10^6/uL Hemoglobin 11.6 11.5-16.0 G/DL Hematocrit 38 35-52 % Mean Corpuscular Volume 86 80-99 FL Mean Corpuscular Hemoglobin 27 25-34 PG Mean Corpuscular Hemoglobin Concent 31 L 32-36 G/DL Red Cell Distribution Width 20.5 H 10.0-14.5 % Platelet Count 289 130-400 10^3/uL Mean Platelet Volume 10.2 7.4-10.4 FL Neutrophils (%) (Auto) 46 42-75 % Lymphocytes (%) (Auto) 44 12-44 % Monocytes (%) (Auto) 6 0-12 % Eosinophils (%) (Auto) 3 0-10 % Basophils (%) (Auto) 1 0-10 % Neutrophils # (Auto) 6.5 1.8-7.8 X 10^3 Lymphocytes # (Auto) 6.2 H 1.0-4.0 X 10^3 Monocytes # (Auto) 0.9 0.0-1.0 X 10^3 Eosinophils # (Auto) 0.4 H 0.0-0.3 10^3/uL Basophils # (Auto) 0.1 0.0-0.1 10^3/uL Prothrombin Time 32.5 H 12.2-14.7 SEC INR Comment 3.2 H 0.8-1.4 My Orders Orders - SARAH ARMSTRONG APRN Cbc With Automated Diff (05/31/16 10:43) Protime With Inr (05/31/16 10:43) Metoprolol Tartrate (Ir) Tab (Lopressor (05/31/16 10:45) Manual Differential (05/31/16 10:55) Medications Given in ED Current Medications Medications Dose Ordered Sig/Radha Route Start Time Stop Time Status Last Admin Dose Admin Metoprolol Tartrate 25 mg ONCE ONCE PO 05/31/16 10:45 05/31/16 10:46 DC 05/31/16 10:54 25 MG Vital Signs/I&O Vital Sign - Last 12Hours 05/31/16 10:32 Temp 97.5 Pulse 111 Resp 16 B/P (MAP) 161/71 O2 Delivery Room Air Blood Pressure Mean: 101 Departure Communication Progress Notes 1132-The epistaxis has resolved with placement of a 5.5 cm anterior rapid Rhino. I discussed with Cira Lee from Dr. Constantino's clinic. Dr. Constantino is out of the office so she needed surgery patient would have to be shipped. However since she is not actively bleeding Cira would be able to take a look at her I will send the patient to Cira's office as the patient has a friend with her who will drive her Impression Impression: Primary Impression: Epistaxis Disposition: HOME, SELF-CARE Condition: Stable Departure-Patient Inst. Decision time for Depature: 11:33 Referrals: PHIL MONTALVO MD (PCP/Family) Primary Care Physician Patient Instructions: Nosebleeds (DC) Add. Discharge Instructions: 1. Return to ER for any concerns All discharge instructions reviewed with patient and/or family. Voiced understanding. Copy Copies To 1: IRIAN CONSTANTINO MD, PETER J APRN May 31, 2016 10:45
[2016-05-31 11:00] LABS: BASOPHILS # (AUTO) 0.1 10^3/uL (0.0-0.1); BASOPHILS % (AUTO) 1 % (0-10); EOSINOPHILS # (AUTO) 0.4 10^3/uL (0.0-0.3); EOSINOPHILS % (AUTO) 3 % (0-10); LYMPHOCYTES # (AUTO) 6.2 X 10^3 (1.0-4.0); LYMPHOCYTES % (AUTO) 44 % (12-44); MEAN CORPUSCULAR HEMOGLOBIN 27 PG (25-34); MEAN CORPUSCULAR HGB CONC 31 G/DL (32-36); MEAN CORPUSCULAR VOLUME 86 FL (80-99); MEAN PLATELET VOLUME 10.2 FL (7.4-10.4); MONOCYTES # (AUTO) 0.9 X 10^3 (0.0-1.0); MONOCYTES % (AUTO) 6 % (0-12); NEUTROPHILS # (AUTO) 6.5 X 10^3 (1.8-7.8); NEUTROPHILS % (AUTO) 46 % (42-75); PLATELET COUNT 289 10^3/uL (130-400); RED BLOOD COUNT 4.36 10^6/uL (4.35-5.85); RED CELL DISTRIBUTION WIDTH 20.5 % (10.0-14.5)
[2016-05-31 11:11] LABS: INR 3.2 (0.8-1.4); PROTHROMBIN TIME PATIENT 32.5 SEC (12.2-14.7)
[2016-05-31] MEDS ORDERED: TRANEXAMIC ACID 100 MG/ML 10 ML INJECTION IV ONE (11:35)
[2016-05-31 11:36] LABS: ANISOCYTOSIS MODERATE; BAND NEUTROPHILS 2 %; BASOPHILS % (MANUAL) 1 %; EOSINOPHILS % (MANUAL) 3 %; LYMPHOCYTES % (MANUAL) 50 %; NEUTROPHILS % (MANUAL) 38 %; REACTIVE LYMPHOCYTES 1 %
[2016-05-31] MEDS ORDERED: OXYMETAZOLINE (AFRIN) 0.05% NA 15 ML BTL ONE (12:18)
[2016-05-31 12:45] VITALS: BP 158/70
--- NOTE | 2016-05-31 13:16 | Progress Note-Standard ---
Standard Progress Note Progress Notes/Assess & Plan Date Seen 05/31/16 Assess & Plan/Chief Complaint S. Consulted on patient in ER for epistaxis unresolved with packing placement. Is currently on coumadin therapy. Also uses oxygen with current facemask in place 0. Right nasal bleed with packing in place. Verbal consent was obtained. The previous packing was removed and increased bleeding was noted. The nose was sprayed with Afrin and cleaned with a suction. An active bleeding sight was noted in the floor of the nose mid way back. Two sticks of silver nitrate was used to cauterize the area. Two Hakeem packs were placed in the right nostril and flooded with Afrin. A. Epistaxix P. Very mild oozing continued around anterior packing for 15 minutes and then had all but resolved. We will place the Pt on keflex and remove that packing in office on Friday. Labs Laboratory Tests 05/31/16 10:55 Short Stay Final Diagnosis Epistaxis KAYLEE CALZADA APRN May 31, 2016 13:16
--- OUTSIDE RECORDS SUMMARY | 2016-07-04 21:41 | XMS REPORT | Continuity of Care Document ---
Author Author [facility] Organization [facility] Address Unknown Phone Unavailable Allergies Active Description Code Type Severity Reaction Onset Reported/Identified Relationship to Patient Clinical Status Yes Penicillins [id number] Drug Allergy Unknown N/A 04/03/2016 Medications Problems Date Dx Coded Attending Type Code Diagnosis Diagnosed By 06/06/2009 Ot 780.2 06/06/2009 Ot 780.4 08/30/2009 Ot 250.40 08/30/2009 Ot 272.4 08/30/2009 Ot 278.01 08/30/2009 Ot 305.1 08/30/2009 Ot 311 08/30/2009 Ot 403.90 08/30/2009 Ot 412 08/30/2009 Ot 414.01 08/30/2009 Ot 443.9 08/30/2009 Ot 585.9 08/30/2009 Ot 715.90 08/30/2009 Ot V45.82 08/30/2009 Ot V85.4 06/12/2010 Ot 217 06/12/2010 Ot 250.00 06/12/2010 Ot V58.67 07/01/2010 Ot 250.00 07/01/2010 Ot 272.4 07/01/2010 Ot 278.00 07/01/2010 Ot 305.1 07/01/2010 Ot 401.9 07/01/2010 Ot 412 07/01/2010 Ot 414.01 07/01/2010 Ot 453.42 07/01/2010 Ot V45.82 07/01/2010 Ot V85.41 09/29/2010 Ot 787.03 VOMITING ALONE 09/29/2010 Ot 787.91 DIARRHEA 09/29/2010 Ot 789.09 ABDOMINAL PAIN, OTHER SPECIFIED SITE 09/30/2010 Ot 244.8 ACQUIRED HYPOTHYROID NEC 09/30/2010 Ot 250.00 DIAB JUNG WO COMPL, TYPE II OR UNSPEC TY 09/30/2010 Ot 401.1 BENIGN HYPERTENSION 09/30/2010 Ot V58.61 ANTICOAGULANTS,LT,CURRENT USE 09/30/2010 Ot V58.83 ENCOUNTER FOR THERAPEUTIC DRUG MONITORIN 10/16/2010 Ot 250.00 DIAB JUNG WO COMPL, TYPE II OR UNSPEC TY 10/16/2010 Ot 403.90 HYPTNSV CHR KID DIS, UNSPEC, W CHR KD ST 10/16/2010 Ot 414.01 CORONARY ATHEROSCLEROSIS OF [place] CORON 10/16/2010 Ot 416.8 CHR PULMON HEART DIS NEC 10/16/2010 Ot 428.1 LEFT HEART FAILURE 10/16/2010 Ot 433.10 CAROTID ARTERY OCCLUSION W O CEREBRAL IN 10/16/2010 Ot 440.1 RENAL ARTERY ATHEROSCLER 10/16/2010 Ot 453.40 ACUTE VENOUS EMBOLISM THROMBOSIS UNSP 10/16/2010 Ot 585.3 CHRONIC KIDNEY DISEASE, STAGE III (MODER 10/16/2010 Ot 729.81 SWELLING OF LIMB 10/16/2010 Ot V15.82 HISTORY OF TOBACCO USE 10/16/2010 Ot V45.82 PERCUTANEOUS TRANSLUM CORON ANGIOPLASTY 10/16/2010 Ot V58.61 ANTICOAGULANTS,LT,CURRENT USE 10/16/2010 Ot V58.66 LONG-TERM (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 OF ASPIRIN 10/16/2010 Ot V58.67 LONG-TERM (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 OF INSULIN 12/31/2010 Ot V58.61 ANTICOAGULANTS,LT,CURRENT USE 12/31/2010 Ot V58.83 ENCOUNTER FOR THERAPEUTIC DRUG MONITORIN 04/14/2011 Ot V58.61 ANTICOAGULANTS,LT,CURRENT USE 04/14/2011 Ot V58.83 ENCOUNTER FOR THERAPEUTIC DRUG MONITORIN 05/28/2011 Ot 558.9 NONINF GASTROENTERIT NEC 05/28/2011 Ot 789.07 ABDOMINAL PAIN, GENERALIZED 06/10/2011 Ot 531.90 STOMACH ULCER NOS 06/10/2011 Ot 532.90 DUODENAL ULCER NOS 06/10/2011 Ot 535.50 UNSP GASTRITIS GASTRODUODENITIS W/O ME 06/23/2011 Ot 789.04 ABDOMINAL PAIN, LEFT LOWER QUADRANT 06/26/2011 Ot 245.2 CHR LYMPHOCYT THYROIDIT 06/26/2011 Ot 250.02 DIAB JUNG WO COMPL, TYPE II OR UNSPEC TY 06/26/2011 Ot 272.4 HYPERLIPIDEMIA NEC/NOS 06/26/2011 Ot 276.51 DEHYDRATION 06/26/2011 Ot 278.01 MORBID OBESITY 06/26/2011 Ot 403.90 HYPTNSV CHR 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, UNSPEC, W CHR KD ST 06/26/2011 Ot 412 OLD MYOCARDIAL INFARCT 06/26/2011 Ot 414.01 CORONARY ATHEROSCLEROSIS OF [place] CORON 06/26/2011 Ot 416.8 CHR PULMON HEART DIS NEC 06/26/2011 Ot 427.89 CARDIAC DYSRHYTHMIAS NEC 06/26/2011 Ot 428.1 LEFT HEART FAILURE 06/26/2011 Ot 428.32 CHRONIC DIASTOLIC HRT FAILURE 06/26/2011 Ot 440.1 RENAL ARTERY ATHEROSCLER 06/26/2011 Ot 443.9 PERIPH VASCULAR DIS NOS 06/26/2011 Ot 532.90 DUODENAL ULCER NOS 06/26/2011 Ot 557.9 VASC INSUFF INTEST NOS 06/26/2011 Ot 584.9 ACUTE RENAL FAILURE, UNSPECIFIED 06/26/2011 Ot 585.9 CHRONIC KIDNEY DISEASE, UNSPECIFIED 06/26/2011 Ot 780.57 UNSPECIFIED SLEEP APNEA 06/26/2011 Ot V12.51 HX-VENOUS THROMBOSIS EMBOLISM 06/26/2011 Ot V15.82 HISTORY OF TOBACCO USE 06/26/2011 Ot V45.82 PERCUTANEOUS TRANSLUM CORON ANGIOPLASTY 06/26/2011 Ot V85.41 BODY MASS INDEX 40.0-44.9, ADULT 01/31/2012 Ot 274.00 GOUTY ARTHROPATHY, UNSPECIFIED 01/31/2012 Ot 729.5 PAIN IN LIMB 05/08/2012 Ot 789.00 ABDOMINAL PAIN, UNSPECIFIED SITE 10/03/2012 CLARA SAVAGE MD Ot 244.9 HYPOTHYROIDISM NOS 10/03/2012 CLARA SAVAGE MD Ot 250.00 DIAB JUNG WO COMPL, TYPE II OR UNSPEC TY 10/03/2012 CLARA SAVAGE MD Ot 272.4 HYPERLIPIDEMIA NEC/NOS 10/03/2012 CLARA SAVAGE MD Ot 274.9 GOUT NOS 10/03/2012 CLARA SAVAGE MD Ot 278.00 OBESITY, NOS 10/03/2012 CLARA SAVAGE MD Ot 311 DEPRESSIVE DISORDER NEC 10/03/2012 CLARA SAVAGE MD Ot 327.23 OBSTRUCTIVE SLEEP APNEA (ADULT) ( PEDIATR 10/03/2012 CLARA SAVGAE MD Ot 403.90 HYPTNSV CHR KID DIS, UNSPEC, W CHR KD ST 10/03/2012 CLARA SAVAGE MD Ot 412 OLD MYOCARDIAL INFARCT 10/03/2012 CLARA SAVAGE MD Ot 414.01 CORONARY ATHEROSCLEROSIS OF [place] CORON 10/03/2012 CLARA SAVAGE MD Ot 440.1 RENAL ARTERY ATHEROSCLER 10/03/2012 CLARA SAVAGE MD Ot 443.9 PERIPH VASCULAR DIS NOS 10/03/2012 CLARA SAVAGE MD Ot 447.4 CELIAC ART COMPRESS SYN 10/03/2012 CLARA SAVAGE MD Ot 496 CHR AIRWAY OBSTRUCT NEC 10/03/2012 CLARA SAVAGE MD Ot 557.1 CHR VASC INSUFF INTEST 10/03/2012 CLARA SAVAGE MD Ot 585.9 CHRONIC KIDNEY DISEASE, UNSPECIFIED 10/03/2012 CLARA SAVAGE MD Ot 593.9 RENAL URETERAL DIS NOS 10/03/2012 CLARA SAVAGE MD Ot 996.74 OTH COMPL DUE TO OT VASCULAR DEVICE, IMP 10/03/2012 CLARA SAVAGE MD Ot V12.51 HX-VENOUS THROMBOSIS EMBOLISM 10/03/2012 CLARA SAVAGE MD Ot V46.2 SUPPLEMENTAL OXYGEN 10/03/2012 CLARA SAVAGE MD Ot V85.41 BODY MASS INDEX 40.0-44.9, ADULT 05/04/2014 Ot 244.9 HYPOTHYROIDISM NOS 05/04/2014 Ot 250.40 DIAB W RENAL MANIFEST, TYPE II OR UNSPEC 05/04/2014 Ot 278.01 MORBID OBESITY 05/04/2014 Ot 403.91 HYPTNSV CHR KID DIS, UNSPEC, W CHR KD ST 05/04/2014 Ot 414.01 CORONARY ATHEROSCLEROSIS OF [place] CORON 05/04/2014 Ot 583.81 NEPHRITIS NOS IN OTH DIS 05/04/2014 Ot 585.4 CHRONIC KIDNEY DISEASE, STAGE IV (SEVERE 05/04/2014 Ot 780.57 UNSPECIFIED SLEEP APNEA 05/04/2014 Ot 794.30 ABN CARDIOVASC STUDY NOS 05/04/2014 Ot V15.82 HISTORY OF TOBACCO USE 05/04/2014 Ot V45.82 PERCUTANEOUS TRANSLUM CORON ANGIOPLASTY 05/04/2014 Ot V58.69 OT MED,LT,CURRENT USE 05/04/2014 Ot V85.42 BODY MASS INDEX 45.0-49.9, ADULT 08/03/2014 Ot 250.40 08/03/2014 Ot 272.4 08/03/2014 Ot 403.90 08/03/2014 Ot 414.00 08/03/2014 Ot 429.9 08/03/2014 Ot 433.10 08/03/2014 Ot 440.1 08/03/2014 Ot 443.9 08/03/2014 Ot 585.4 08/03/2014 Ot 780.57 10/22/2014 Ot 241.0 10/22/2014 Ot 401.9 10/22/2014 Ot 429.3 10/22/2014 Ot V72.63 10/22/2014 Ot V72.81 10/22/2014 Ot V74.8 10/22/2014 Ot 611.79 10/22/2014 Ot 593.9 10/22/2014 Ot 611.79 10/22/2014 Ot V76.12 10/22/2014 Ot 611.79 10/22/2014 Ot 611.79 10/22/2014 Ot V72.83 10/22/2014 Ot V74.8 10/22/2014 Ot 217 10/22/2014 Ot 244.8 10/22/2014 Ot 250.00 10/22/2014 Ot 401.1 10/22/2014 Ot 440.0 10/22/2014 Ot 724.5 10/22/2014 Ot 793.4 10/22/2014 Ot 789.00 10/22/2014 Ot 397.0 10/22/2014 Ot 401.9 10/22/2014 Ot 414.00 10/22/2014 Ot 416.8 10/22/2014 Ot 424.0 10/22/2014 Ot 729.81 10/22/2014 Ot 787.03 10/22/2014 Ot 787.03 10/22/2014 Ot V58.61 10/22/2014 Ot V58.83 10/22/2014 Ot 414.01 10/22/2014 Ot V72.84 10/22/2014 Ot V76.12 10/22/2014 Ot 562.11 10/22/2014 Ot 593.9 10/22/2014 Ot 396.3 10/22/2014 Ot 416.8 10/22/2014 Ot 782.3 10/22/2014 Ot 786.09 10/22/2014 SUYAPA SOLER, CARROLL Madden Ot 211.3 10/22/2014 SUYAPA SOLER, CARROLL Madden Ot 569.0 10/22/2014 SUYAPA SOLER, CARROLL Madden Ot 569.82 10/22/2014 CARROLL DALE MD Ot V72.84 10/22/2014 JANETTE SOLER, CLARA Corona Ot 680.9 10/22/2014 CLARA SAVAGE MD Ot 719.43 10/22/2014 BLACK PAEZ MEAT COOLER Ot 813.42 10/22/2014 BLACK PAEZ MEAT COOLER Ot 814.01 10/22/2014 BLACK PAEZ MEAT COOLER Ot E928.9 10/22/2014 Ot 250.40 10/22/2014 Ot 272.4 10/22/2014 Ot 403.90 10/22/2014 Ot 414.00 10/22/2014 Ot 429.9 10/22/2014 Ot 433.10 10/22/2014 Ot 440.1 10/22/2014 Ot 443.9 10/22/2014 Ot 585.4 10/22/2014 Ot 780.57 10/22/2014 JEREL KELLEY Ot 250.00 DIAB JUNG WO COMPL, TYPE II OR UNSPEC TY 10/22/2014 JEREL KELLEY Ot 825.25 FX METATARSAL-CLOSED 10/22/2014 JEREL KELLEY Ot 959.7 LOWER LEG INJURY NOS 10/22/2014 JEREL KELLEY Ot E000.8 OTHER EXTERNAL CAUSE STATUS 10/22/2014 JEREL KELLEY Ot E001.0 ACTIVITIES INVOLVING WALKING, MARCHING A 10/22/2014 JEREL KELLEY Ot E849.0 ACCIDENT IN HOME 10/22/2014 JEREL KELLEY Ot E927.0 OVEREXERTION FROM SUDDEN STRENUOUS MOVEM 10/22/2014 JEREL KELLEY Ot V58.67 LONG-TERM (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 OF INSULIN 10/27/2014 Ot 611.79 10/27/2014 Ot 593.9 10/27/2014 Ot 611.79 10/27/2014 Ot V76.12 10/27/2014 Ot 611.79 10/27/2014 Ot 611.79 10/27/2014 Ot V72.83 10/27/2014 Ot V74.8 10/27/2014 Ot 217 10/27/2014 Ot 244.8 10/27/2014 Ot 250.00 10/27/2014 Ot 401.1 10/27/2014 Ot 440.0 10/27/2014 Ot 724.5 10/27/2014 Ot 793.4 10/27/2014 Ot 789.00 10/27/2014 Ot 397.0 10/27/2014 Ot 401.9 10/27/2014 Ot 414.00 10/27/2014 Ot 416.8 10/27/2014 Ot 424.0 10/27/2014 Ot 729.81 10/27/2014 Ot 787.03 10/27/2014 Ot 787.03 10/27/2014 Ot V58.61 10/27/2014 Ot V58.83 10/27/2014 Ot 414.01 10/27/2014 Ot V72.84 10/27/2014 Ot V76.12 10/27/2014 Ot 562.11 10/27/2014 Ot 593.9 10/27/2014 Ot 396.3 10/27/2014 Ot 416.8 10/27/2014 Ot 782.3 10/27/2014 Ot 786.09 10/27/2014 SUYAPA SOLER, CARROLL Madden Ot 211.3 10/27/2014 SUYAPA SOLER, CARROLL Madden Ot 569.0 10/27/2014 SUYAPA SOLER, CARROLL Madden Ot 569.82 10/27/2014 CARROLL DALE MD Ot V72.84 10/27/2014 JANETTE SOLER, CLARA Corona Ot 680.9 10/27/2014 JANETTE SOLER, CLARA Corona Ot 719.43 10/27/2014 BLACK PAEZ Ot 813.42 10/27/2014 BLACK PAEZP Ot 814.01 10/27/2014 BLACK PAEZP Ot E928.9 10/27/2014 Ot 250.40 10/27/2014 Ot 272.4 10/27/2014 Ot 403.90 10/27/2014 Ot 414.00 10/27/2014 Ot 429.9 10/27/2014 Ot 433.10 10/27/2014 Ot 440.1 10/27/2014 Ot 443.9 10/27/2014 Ot 585.4 10/27/2014 Ot 780.57 11/28/2014 Ot 611.79 11/28/2014 Ot 593.9 11/28/2014 Ot 611.79 11/28/2014 Ot V76.12 11/28/2014 Ot 611.79 11/28/2014 Ot 611.79 11/28/2014 Ot V72.83 11/28/2014 Ot V74.8 11/28/2014 Ot 217 11/28/2014 Ot 244.8 11/28/2014 Ot 250.00 11/28/2014 Ot 401.1 11/28/2014 Ot 440.0 11/28/2014 Ot 724.5 11/28/2014 Ot 793.4 11/28/2014 Ot 789.00 11/28/2014 Ot 397.0 11/28/2014 Ot 401.9 11/28/2014 Ot 414.00 11/28/2014 Ot 416.8 11/28/2014 Ot 424.0 11/28/2014 Ot 729.81 11/28/2014 Ot 787.03 11/28/2014 Ot 787.03 11/28/2014 Ot V58.61 11/28/2014 Ot V58.83 11/28/2014 Ot 414.01 11/28/2014 Ot V72.84 11/28/2014 Ot V76.12 11/28/2014 Ot 562.11 11/28/2014 Ot 593.9 11/28/2014 Ot 396.3 11/28/2014 Ot 416.8 11/28/2014 Ot 782.3 11/28/2014 Ot 786.09 11/28/2014 CARROLL DALE MD Ot 211.3 11/28/2014 CARROLL DALE MD Ot 569.0 11/28/2014 CARROLL DALE MD Ot 569.82 11/28/2014 CARROLL DALE MD Ot V72.84 11/28/2014 CLARA SAVAGE MD Ot 680.9 11/28/2014 CLARA SAVAGE MD Ot 719.43 11/28/2014 BLACK PAEZ MEAT COOLER Ot 813.42 11/28/2014 BLACK APEZ MEAT COOLER Ot 814.01 11/28/2014 BLACK PAEZ MEAT COOLER Ot E928.9 11/28/2014 Ot 250.40 11/28/2014 Ot 272.4 11/28/2014 Ot 403.90 11/28/2014 Ot 414.00 11/28/2014 Ot 429.9 11/28/2014 Ot 433.10 11/28/2014 Ot 440.1 11/28/2014 Ot 443.9 11/28/2014 Ot 585.4 11/28/2014 Ot 780.57 12/20/2014 BAIMA, SANAM L MEAT COOLER Ot E78.5 12/20/2014 BAIMA, SANAM L MEAT COOLER Ot G47.30 12/20/2014 BAIMA, SANAM L MEAT COOLER Ot I12.9 12/20/2014 BAIMA, SANAM L MEAT COOLER Ot I25.10 12/20/2014 BAIMA, SANAM L MEAT COOLER Ot I35.8 12/20/2014 BAIMA, SANAM L MEAT COOLER Ot I51.89 12/20/2014 BAIMA, SANAM L MEAT COOLER Ot I73.9 12/20/2014 BAIMA, SANAM L MEAT COOLER Ot N18.4 12/28/2014 BAIMA, SANAM L MEAT COOLER Ot E78.5 12/28/2014 BAIMA, SANAM L MEAT COOLER Ot G47.30 12/28/2014 BAIMA, SANAM L MEAT COOLER Ot I10 12/28/2014 BAIMA, SANAM L MEAT COOLER Ot I25.10 12/28/2014 BAIMA, SANAM L MEAT COOLER Ot I73.9 12/28/2014 BAIMA, SANAM L MEAT COOLER Ot I77.9 12/28/2014 BAIMA, SANAM L MEAT COOLER Ot R29.898 01/23/2015 SELVIN SOLER, PHIL Sánchez Ot R06.02 01/23/2015 MANUEL CALZADA APRN Ot R06.02 01/25/2015 Ot 593.9 01/25/2015 Ot 611.79 01/25/2015 Ot V76.12 01/25/2015 Ot 611.79 01/25/2015 Ot 611.79 01/25/2015 Ot V72.83 01/25/2015 Ot V74.8 01/25/2015 Ot 217 01/25/2015 Ot 244.8 01/25/2015 Ot 250.00 01/25/2015 Ot 401.1 01/25/2015 Ot 440.0 01/25/2015 Ot 724.5 01/25/2015 Ot 793.4 01/25/2015 Ot 789.00 01/25/2015 Ot 397.0 01/25/2015 Ot 401.9 01/25/2015 Ot 414.00 01/25/2015 Ot 416.8 01/25/2015 Ot 424.0 01/25/2015 Ot 729.81 01/25/2015 Ot 787.03 01/25/2015 Ot 787.03 01/25/2015 Ot V58.61 01/25/2015 Ot V58.83 01/25/2015 Ot 414.01 01/25/2015 Ot V72.84 01/25/2015 Ot V76.12 01/25/2015 Ot 562.11 01/25/2015 Ot 593.9 01/25/2015 Ot 396.3 01/25/2015 Ot 416.8 01/25/2015 Ot 782.3 01/25/2015 Ot 786.09 01/25/2015 SUYAPA SOLER, CARROLL Madden Ot 211.3 01/25/2015 SUYAPA SOLER, CARROLL Madden Ot 569.0 01/25/2015 SUYAPA SOLER, CARROLL Madden Ot 569.82 01/25/2015 CARROLL DALE MD Ot V72.84 01/25/2015 CLARA SAVAGE MD Ot 680.9 01/25/2015 CLARA SAVAGE MD Ot 719.43 01/25/2015 BLACK PAEZ MEAT COOLER Ot 813.42 01/25/2015 BLACK PAEZ MEAT COOLER Ot 814.01 01/25/2015 BLACK PAEZ MEAT COOLER Ot E928.9 01/25/2015 Ot 250.40 01/25/2015 Ot 272.4 01/25/2015 Ot 403.90 01/25/2015 Ot 414.00 01/25/2015 Ot 429.9 01/25/2015 Ot 433.10 01/25/2015 Ot 440.1 01/25/2015 Ot 443.9 01/25/2015 Ot 585.4 01/25/2015 Ot 780.57 01/25/2015 SANAM BROWN MEAT COOLER Ot E78.5 01/25/2015 SANAM BROWN MEAT COOLER Ot G47.30 01/25/2015 SANAM BROWN MEAT COOLER Ot I12.9 01/25/2015 SANAM BROWN MEAT COOLER Ot I25.10 01/25/2015 SANAM BROWN MEAT COOLER Ot I35.8 01/25/2015 BAIMASANAM MEAT COOLER Ot I51.89 01/25/2015 BAIMA, SANAM L MEAT COOLER Ot I73.9 01/25/2015 BAIMA, SANAM L MEAT COOLER Ot N18.4 01/25/2015 BAIMA, SANAM L MEAT COOLER Ot E78.5 01/25/2015 BAIMASANAM L MEAT COOLER Ot G47.30 01/25/2015 BAIMASANAM L MEAT COOLER Ot I10 01/25/2015 BAIMA, SANAM L MEAT COOLER Ot I25.10 01/25/2015 BAIMASANAM L MEAT COOLER Ot I73.9 01/25/2015 BAIMA, SANAM L MEAT COOLER Ot I77.9 01/25/2015 BAIMASANAM L MEAT COOLER Ot R29.898 01/25/2015 MANUEL CALZADA APRN Ot R06.02 01/25/2015 SELVIN SOLER, PHIL Sánchez Ot R06.02 01/25/2015 LAY REYES DO Ot E66.01 01/25/2015 LAY REYES DO Ot G47.30 01/25/2015 LAY REYES DO Ot R06.09 01/25/2015 LAY REYES DO Ot Z72.0 01/26/2015 Ot 593.9 01/26/2015 Ot 611.79 01/26/2015 Ot V76.12 01/26/2015 Ot 611.79 01/26/2015 Ot 611.79 01/26/2015 Ot V72.83 01/26/2015 Ot V74.8 01/26/2015 Ot 217 01/26/2015 Ot 244.8 01/26/2015 Ot 250.00 01/26/2015 Ot 401.1 01/26/2015 Ot 440.0 01/26/2015 Ot 724.5 01/26/2015 Ot 793.4 01/26/2015 Ot 789.00 01/26/2015 Ot 397.0 01/26/2015 Ot 401.9 01/26/2015 Ot 414.00 01/26/2015 Ot 416.8 01/26/2015 Ot 424.0 01/26/2015 Ot 729.81 01/26/2015 Ot 787.03 01/26/2015 Ot 787.03 01/26/2015 Ot V58.61 01/26/2015 Ot V58.83 01/26/2015 Ot 414.01 01/26/2015 Ot V72.84 01/26/2015 Ot V76.12 01/26/2015 Ot 562.11 01/26/2015 Ot 593.9 01/26/2015 Ot 396.3 01/26/2015 Ot 416.8 01/26/2015 Ot 782.3 01/26/2015 Ot 786.09 01/26/2015 SUYAPA SOLER, CARROLL Madden Ot 211.3 01/26/2015 SUYAPA SOLER, CARROLL Madden Ot 569.0 01/26/2015 SUYAPA SOLER, CARROLL Madden Ot 569.82 01/26/2015 SUYAPA SOLER, CARROLL Madden Ot V72.84 01/26/2015 JANETTE SOLER, CLARA Corona Ot 680.9 01/26/2015 CLARA SAVAGE MD Ot 719.43 01/26/2015 BLACK PAEZ MEAT COOLER Ot 813.42 01/26/2015 BLACK PAEZ MEAT COOLER Ot 814.01 01/26/2015 BLACK PAEZ MEAT COOLER Ot E928.9 01/26/2015 Ot 250.40 01/26/2015 Ot 272.4 01/26/2015 Ot 403.90 01/26/2015 Ot 414.00 01/26/2015 Ot 429.9 01/26/2015 Ot 433.10 01/26/2015 Ot 440.1 01/26/2015 Ot 443.9 01/26/2015 Ot 585.4 01/26/2015 Ot 780.57 01/26/2015 SANAM BROWN L MEAT COOLER Ot E78.5 01/26/2015 BAIMA SANAM L MEAT COOLER Ot G47.30 01/26/2015 BAIMA, SANAM L MEAT COOLER Ot I12.9 01/26/2015 BAIMA, SANAM L MEAT COOLER Ot I25.10 01/26/2015 BAIMA, SANAM L MEAT COOLER Ot I35.8 01/26/2015 BAIMA, SANAM L MEAT COOLER Ot I51.89 01/26/2015 BAIMA, SANAM L MEAT COOLER Ot I73.9 01/26/2015 BAIMA SANAM L MEAT COOLER Ot N18.4 01/26/2015 BAIMA, SANAM L MEAT COOLER Ot E78.5 01/26/2015 BAISANAM VACA MEAT COOLER Ot G47.30 01/26/2015 BAISANAM VACA L MEAT COOLER Ot I10 01/26/2015 BAISANAM VACA L MEAT COOLER Ot I25.10 01/26/2015 BAISANAM VACA MEAT COOLER Ot I73.9 01/26/2015 BAISANAM VACA MEAT COOLER Ot I77.9 01/26/2015 BAISANAM VACA MEAT COOLER Ot R29.898 01/26/2015 MANUEL CALZADA HEAD OF [employer]SH[employer] Ot R06.02 01/26/2015 SELVIN SOLER, PHIL Sánchez Ot R06.02 01/26/2015 AMY LOUISE LAY M Ot E66.01 01/26/2015 AMY LAY M Ot G47.30 01/26/2015 AMYLAY MOORE DO M Ot R06.09 01/26/2015 AMY LAY M Ot Z72.0 02/14/2015 AMY LAY M Ot E66.01 02/14/2015 AMY , LAY M Ot G47.30 02/14/2015 AMYLAY MOORE DO M Ot R06.09 02/14/2015 AMY LOUISE LAY M Ot Z72.0 03/23/2015 FRANCK SALINAS HEAD OF [employer]SH[employer] Ot E66.01 03/23/2015 FRANCK SALNIAS HEAD OF [employer] Ot G47.30 03/23/2015 FRANCK SALINAS HEAD [employer] Ot J43.9 03/23/2015 FRANCK SALINAS HEAD [employer] Ot R06.09 03/23/2015 FRANCK SALINAS HEAD [employer] Ot R59.1 03/23/2015 FRANCK SALINAS HEAD [employer] Ot Z72.0 04/14/2015 MARYSANAM VACA MEAT COOLER Ot R00.2 05/16/2015 MARYSANAM VACA MEAT COOLER Ot R00.2 06/03/2015 JOEY SOLER, ERIN Aguirre Ot E11.9 TYPE 2 DIABETES MELLITUS WITHOUT COMPLIC 06/03/2015 JOEY SOLER, ERIN Aguirre Ot I48.91 UNSPECIFIED ATRIAL FIBRILLATION 06/03/2015 JOEY SOLER, ERIN Aguirre Ot J44.9 CHRONIC OBSTRUCTIVE PULMONARY DISEASE , U 06/03/2015 JOEY SOLER, ERIN T Ot N76.4 ABSCESS OF VULVA 06/03/2015 JOEY SOLER, ERIN T Ot N94.89 OT COND ASSOC W FEMALE GENITAL ORGANS A 06/03/2015 ERIN COOK MD Ot Z79.01 GROUP HOME (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 OF ANTICOAGULANT 06/03/2015 ERIN COOK MD Ot Z79.4 GROUP HOME (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 OF INSULIN 06/03/2015 ERIN COOK MD Ot Z86.14 PERSONAL HISTORY OF METHICILLIN RESIS ST 06/03/2015 ERIN COOK MD Ot Z87.891 PERSONAL HISTORY OF NICOTINE DEPENDENCE 06/05/2015 ERIN COOK MD Ot E11.9 06/05/2015 ERIN COOK MD Ot I48.91 06/05/2015 ERIN COOK MD Ot J44.9 06/05/2015 ERIN COOK MD T Ot N76.4 06/05/2015 ERIN COOK MD T Ot N94.89 06/05/2015 ERIN COOK MD T Ot Z79.01 06/05/2015 ERIN COOK MD T Ot Z79.4 06/05/2015 ERIN COOK MD T Ot Z86.14 06/05/2015 ERIN COOK MD T Ot Z87.891 06/13/2015 ERIN COOK MD Ot E11.9 TYPE 2 DIABETES MELLITUS WITHOUT COMPLIC 06/13/2015 ERIN COOK MD Ot I48.91 UNSPECIFIED ATRIAL FIBRILLATION 06/13/2015 ERIN COOK MD Ot J44.9 CHRONIC OBSTRUCTIVE PULMONARY DISEASE , U 06/13/2015 ERIN COOK MD T Ot N76.4 ABSCESS OF VULVA 06/13/2015 ERIN COOK MD Ot N94.89 OT COND ASSOC W FEMALE GENITAL ORGANS A 06/13/2015 ERIN COOK MD T Ot Z79.01 GROUP HOME (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 OF ANTICOAGULANT 06/13/2015 ERIN COOK MD, Ot 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 06/13/2015 ERIN COOK MD Ot Z86.14 PERSONAL HISTORY OF METHICILLIN RESIS ST 06/13/2015 ERIN COOK MD, Ot Z87.891 PERSONAL HISTORY OF NICOTINE DEPENDENCE 07/12/2015 MARYSANAM VACA Deepti AQUINOP Ot R00.2 PALPITATIONS 07/27/2015 PHIL MONTALVO MD Ot E03.9 HYPOTHYROIDISM, UNSPECIFIED 07/27/2015 PHIL MONTALVO MD Ot E11.9 TYPE 2 DIABETES MELLITUS WITHOUT COMPLIC 07/27/2015 PHIL MONTALVO MD, Ot E66.2 MORBID (SEVERE) OBESITY WITH ALVEOLAR HY 07/27/2015 PHIL MONTALVO MD, Ot G47.30 SLEEP APNEA, UNSPECIFIED 07/27/2015 PHIL MONTALVO MD, Ot I12.9 HYPERTENSIVE CHRONIC KIDNEY DISEASE W ST 07/27/2015 PHIL MONTALVO MD, Ot I25.10 ATHSCL HEART DISEASE OF [place] CORONARY 07/27/2015 PHIL MONTALVO MD Ot I48.0 PAROXYSMAL ATRIAL FIBRILLATION 07/27/2015 PHIL MONTALVO MD, Ot I50.32 CHRONIC DIASTOLIC (CONGESTIVE) HEART CHIRAG 07/27/2015 PHIL MONTALVO MD, Ot I65.23 OCCLUSION AND STENOSIS OF [place] 07/27/2015 PHIL MONTALVO MD Ot I87.2 VENOUS INSUFFICIENCY (CHRONIC) (PERIPHER 07/27/2015 PHIL MONTALVO MD, Ot J44.9 CHRONIC OBSTRUCTIVE PULMONARY DISEASE, U 07/27/2015 PHIL MONTALVO MD, Ot N18.9 CHRONIC KIDNEY DISEASE, UNSPECIFIED 07/27/2015 PHIL MONTALVO MD Ot R00.2 PALPITATIONS 07/27/2015 PHIL MONTALVO MD Ot R06.02 SHORTNESS OF BREATH 07/27/2015 PHIL MONTALVO MD, Ot R07.9 CHEST PAIN, UNSPECIFIED 07/27/2015 PHIL MONTALVO MD, Ot Z68.42 BODY MASS INDEX (BMI) 45.0-49.9, ADULT 07/27/2015 PHIL MONTALVO MD, Ot Z79.4 GROUP HOME (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 OF INSULIN 07/27/2015 PHIL MONTALVO MD Ot Z95.5 PRESENCE OF CORONARY ANGIOPLASTY IMPLANT 07/27/2015 PHIL MONTALVO MD Ot Z99.81 DEPENDENCE ON SUPPLEMENTAL OXYGEN 07/27/2015 PHIL MONTALVO MD Ot E03.9 HYPOTHYROIDISM, UNSPECIFIED 07/27/2015 PHIL MONTALVO MD Ot E11.9 TYPE 2 DIABETES MELLITUS WITHOUT COMPLIC 07/27/2015 PHIL MONTALVO MD Ot E66.2 MORBID (SEVERE) OBESITY WITH ALVEOLAR HY 07/27/2015 PHIL MONTALVO MD Ot G47.30 SLEEP APNEA, UNSPECIFIED 07/27/2015 PHIL MONTALVO MD Ot I12.9 HYPERTENSIVE CHRONIC KIDNEY DISEASE W ST 07/27/2015 PHIL MONTALVO MD, Ot I25.10 ATHSCL HEART DISEASE OF [place] CORONARY 07/27/2015 PHIL MONTALVO MD Ot I48.0 PAROXYSMAL ATRIAL FIBRILLATION 07/27/2015 PHIL MONTALVO MD, Ot I50.32 CHRONIC DIASTOLIC (CONGESTIVE) HEART CHIRAG 07/27/2015 PHIL MONTALVO MD Ot I65.23 OCCLUSION AND STENOSIS OF [place] 07/27/2015 PHIL MONTALVO MD Ot I87.2 VENOUS INSUFFICIENCY (CHRONIC) (PERIPHER 07/27/2015 PHIL MONTALVO MD, Ot J44.9 CHRONIC OBSTRUCTIVE PULMONARY DISEASE, U 07/27/2015 PHIL MONTALVO MD, Ot N18.9 CHRONIC KIDNEY DISEASE, UNSPECIFIED 07/27/2015 PHIL MONTALVO MD Ot R00.2 PALPITATIONS 07/27/2015 PHIL MONTALVO MD, Ot R06.02 SHORTNESS OF BREATH 07/27/2015 PHIL MONTALVO MD, Ot R07.9 CHEST PAIN, UNSPECIFIED 07/27/2015 PHIL MONTALVO MD Ot Z68.42 BODY MASS INDEX (BMI) 45.0-49.9, ADULT 07/27/2015 PHIL MONTALVO MD Ot 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 07/27/2015 PHIL MONTALVO MD Ot Z95.5 PRESENCE OF CORONARY ANGIOPLASTY IMPLANT 07/27/2015 PHIL MONTALVO MD, Ot Z99.81 DEPENDENCE ON SUPPLEMENTAL OXYGEN 08/17/2015 BAIMA, SANAM L MEAT COOLER Ot E78.5 HYPERLIPIDEMIA, UNSPECIFIED 08/17/2015 BAIMA, SANAM L MEAT COOLER Ot I12.9 HYPERTENSIVE CHRONIC KIDNEY DISEASE W ST 08/17/2015 BAIMA, SANAM L MEAT COOLER Ot I25.10 ATHSCL HEART DISEASE OF [place] CORONARY 08/17/2015 BAIMA, SANAM L MEAT COOLER Ot I48.0 PAROXYSMAL ATRIAL FIBRILLATION 08/17/2015 BAIMA, SANAM L MEAT COOLER Ot I65.23 OCCLUSION AND STENOSIS OF [place] 08/17/2015 BAIMA, SANAM L MEAT COOLER Ot I73.9 PERIPHERAL VASCULAR DISEASE, UNSPECIFIED 08/17/2015 BAIMA, SANAM L MEAT COOLER Ot N18.4 CHRONIC KIDNEY DISEASE, STAGE 4 (SEVERE ) 08/17/2015 BAIMA, SANAM L MEAT COOLER Ot E78.5 HYPERLIPIDEMIA, UNSPECIFIED 08/17/2015 BAIMA, ASNAM L MEAT COOLER Ot I12.9 HYPERTENSIVE CHRONIC KIDNEY DISEASE W ST 08/17/2015 BAIMA, SANAM L MEAT COOLER Ot I25.10 ATHSCL HEART DISEASE OF [place] CORONARY 08/17/2015 BAIMA, SANAM L MEAT COOLER Ot I48.0 PAROXYSMAL ATRIAL FIBRILLATION 08/17/2015 BAIMA, SANAM L MEAT COOLER Ot I65.23 OCCLUSION AND STENOSIS OF [place] 08/17/2015 BAIMA, SANAM L MEAT COOLER Ot I73.9 PERIPHERAL VASCULAR DISEASE, UNSPECIFIED 08/17/2015 BAIMA, SANAM L MEAT COOLER Ot N18.4 CHRONIC KIDNEY DISEASE, STAGE 4 (SEVERE ) 09/12/2015 BAIMA, SANAM L MEAT COOLER Ot E78.5 HYPERLIPIDEMIA, UNSPECIFIED 09/12/2015 BAIMA, SANAM L MEAT COOLER Ot I12.9 HYPERTENSIVE CHRONIC KIDNEY DISEASE W ST 09/12/2015 BAIMA, SANAM L MEAT COOLER Ot I25.10 ATHSCL HEART DISEASE OF [place] CORONARY 09/12/2015 BAIMA, SANAM L MEAT COOLER Ot I48.0 PAROXYSMAL ATRIAL FIBRILLATION 09/12/2015 BAIMA, SANAM L MEAT COOLER Ot I65.23 OCCLUSION AND STENOSIS OF [place] 09/12/2015 BAIMA, SANAM L MEAT COOLER Ot I73.9 PERIPHERAL VASCULAR DISEASE, UNSPECIFIED 09/12/2015 BAIMA, SANAM L MEAT COOLER Ot N18.4 CHRONIC KIDNEY DISEASE, STAGE 4 (SEVERE ) 01/30/2016 Ot 217 BENIGN NEOPLASM BREAST 01/30/2016 Ot 440.0 AORTIC ATHEROSCLEROSIS 01/30/2016 Ot 724.5 BACKACHE NOS 01/30/2016 Ot 793.4 NOSP (ABN) FINDINGS ON RADIOLOGICAL OT 01/30/2016 Ot 789.00 ABDOMINAL PAIN, UNSPECIFIED SITE 01/30/2016 Ot 397.0 TRICUSPID VALVE DISEASE 01/30/2016 Ot 401.9 HYPERTENSION NOS 01/30/2016 Ot 414.00 CORON ATHEROSCLER NOS TYPE VESSEL, NATIV 01/30/2016 Ot 416.8 [facility] PULMON HEART DIS NEC 01/30/2016 Ot 424.0 MITRAL VALVE DISORDER 01/30/2016 Ot 729.81 SWELLING OF LIMB 01/30/2016 Ot 787.03 VOMITING ALONE 01/30/2016 Ot 787.03 VOMITING ALONE 01/30/2016 Ot V58.61 ANTICOAGULANTS,LT,CURRENT USE 01/30/2016 Ot V58.83 ENCOUNTER FOR THERAPEUTIC DRUG MONITORIN 01/30/2016 Ot 414.01 CORONARY ATHEROSCLEROSIS OF [place] CORON 01/30/2016 Ot V72.84 EXAM PRE-OPERATIVE NOS 01/30/2016 Ot V76.12 OTH SCREEN MAMMO-MALIGN NEOPLASM OF [place] 01/30/2016 Ot 562.11 DIVERTICULITIS COLON (W/O MENT OF HEMORR 01/30/2016 Ot 593.9 RENAL URETERAL DIS NOS 01/30/2016 Ot 396.3 MITRAL/AORTIC ESTRELLITA INSUFF 01/30/2016 Ot 416.8 CHR PULMON HEART DIS NEC 01/30/2016 Ot 782.3 EDEMA 01/30/2016 Ot 786.09 RESPIRATORY ABNORM NEC 01/30/2016 CARROLL DALE MD Ot 211.3 BENIGN NEOPLASM LG BOWEL 01/30/2016 CARROLL DALE MD Ot 569.0 ANAL RECTAL POLYP 01/30/2016 CARROLL DALE MD Ot 569.82 ULCERATION OF INTESTINE 01/30/2016 CARROLL DALE MD Ot V72.84 EXAM PRE-OPERATIVE NOS 01/30/2016 CLARA SAVAGE MD Ot 680.9 CARBUNCLE NOS 01/30/2016 CLARA SAVAGE MD Ot 719.43 JOINT PAIN-FOREARM 01/30/2016 BLACK PAEZP Ot 813.42 FX DISTAL RADIUS NEC-CL 01/30/2016 BLACK PAEZP Ot 814.01 FX NAVICULAR, WRIST-CLOS 01/30/2016 BLACK PAEZ MEAT COOLER Ot E928.9 ACCIDENT NOS 01/30/2016 Ot 250.40 DIAB W RENAL MANIFEST, TYPE II OR UNSPEC 01/30/2016 Ot 272.4 HYPERLIPIDEMIA NEC/NOS 01/30/2016 Ot 403.90 HYPTNSV CHR KID DIS, UNSPEC, W CHR KD ST 01/30/2016 Ot 414.00 CORON ATHEROSCLER NOS TYPE VESSEL, NATIV 01/30/2016 Ot 429.9 HEART DISEASE NOS 01/30/2016 Ot 433.10 CAROTID ARTERY OCCLUSION W O CEREBRAL IN 01/30/2016 Ot 440.1 RENAL ARTERY ATHEROSCLER 01/30/2016 Ot 443.9 PERIPH VASCULAR DIS NOS 01/30/2016 Ot 585.4 CHRONIC KIDNEY DISEASE, STAGE IV (SEVERE 01/30/2016 Ot 780.57 UNSPECIFIED SLEEP APNEA 01/30/2016 BAIMA, SANAM L MEAT COOLER Ot E78.5 HYPERLIPIDEMIA, UNSPECIFIED 01/30/2016 BAIMA, SANAM L MEAT COOLER Ot G47.30 SLEEP APNEA, UNSPECIFIED 01/30/2016 BAIMA, SANAM L MEAT COOLER Ot I12.9 HYPERTENSIVE CHRONIC KIDNEY DISEASE W ST 01/30/2016 BAIMA, SANAM L MEAT COOLER Ot I25.10 ATHSCL HEART DISEASE OF [place] CORONARY 01/30/2016 BAIMA, SANAM L MEAT COOLER Ot I35.8 OTHER NONRHEUMATIC AORTIC VALVE DISORDER 01/30/2016 BAIMA, SANAM L MEAT COOLER Ot I51.89 OTHER ILL-DEFINED HEART DISEASES 01/30/2016 BAIMA, SANAM L MEAT COOLER Ot I73.9 PERIPHERAL VASCULAR DISEASE, UNSPECIFIED 01/30/2016 BAIMA, SANAM L MEAT COOLER Ot N18.4 CHRONIC KIDNEY DISEASE, STAGE 4 (SEVERE ) 01/30/2016 BAIMA, SANAM L MEAT COOLER Ot E78.5 HYPERLIPIDEMIA, UNSPECIFIED 01/30/2016 BAIMA, SANAM L MEAT COOLER Ot G47.30 SLEEP APNEA, UNSPECIFIED 01/30/2016 BAIMA, SANAM L MEAT COOLER Ot I10 ESSENTIAL (PRIMARY) HYPERTENSION 01/30/2016 BAIMA, SANAM L MEAT COOLER Ot I25.10 ATHSCL HEART DISEASE OF [place] CORONARY 01/30/2016 BAIMA, SANAM L MEAT COOLER Ot I73.9 PERIPHERAL VASCULAR DISEASE, UNSPECIFIED 01/30/2016 BAIMA, SANAM L MEAT COOLER Ot I77.9 DISORDER OF ARTERIES AND ARTERIOLES, UNS 01/30/2016 SANAM BROWN MEAT COOLER Ot R29.898 OTH SYMPTOMS AND SIGNS INVOLVING THE MUS 01/30/2016 MANUEL CALZADA APRN Ot R06.02 SHORTNESS OF BREATH 01/30/2016 SELVIN SOLRE, PHIL Sánchez Ot R06.02 SHORTNESS OF BREATH 01/30/2016 LAY REYES DO Ot E66.01 MORBID (SEVERE) OBESITY DUE TO EXCESS CA 01/30/2016 LAY REYES DO Ot G47.30 SLEEP APNEA, UNSPECIFIED 01/30/2016 LAY REYES DO Ot R06.09 OTHER FORMS OF DYSPNEA 01/30/2016 LAY REYES DO Ot Z72.0 TOBACCO USE 01/30/2016 FRANCK SALINAS APRN Ot E66.01 MORBID (SEVERE) OBESITY DUE TO EXCESS CA 01/30/2016 FRANCK SALINAS APRN Ot G47.30 SLEEP APNEA, UNSPECIFIED 01/30/2016 FRANCK SALINAS APRN Ot J43.9 EMPHYSEMA, UNSPECIFIED 01/30/2016 FRANCK SALINAS APRN Ot R06.09 OTHER FORMS OF DYSPNEA 01/30/2016 FRANCK SALINAS APRN Ot R59.1 GENERALIZED ENLARGED LYMPH NODES 01/30/2016 FRANCK SALINAS APRN Ot Z72.0 TOBACCO USE 01/30/2016 SANAM BROWN MEAT COOLER Ot R00.2 PALPITATIONS 01/30/2016 SANAM BROWN MEAT COOLER Ot E78.5 HYPERLIPIDEMIA, UNSPECIFIED 01/30/2016 SANAM BROWN MEAT COOLER Ot I12.9 HYPERTENSIVE CHRONIC KIDNEY DISEASE W ST 01/30/2016 SANAM BROWN MEAT COOLER Ot I25.10 ATHSCL HEART DISEASE OF [place] CORONARY 01/30/2016 SANAM BROWN MEAT COOLER Ot I48.0 PAROXYSMAL ATRIAL FIBRILLATION 01/30/2016 SANAM BROWN MEAT COOLER Ot I65.23 OCCLUSION AND STENOSIS OF [place] 01/30/2016 SANAM BROWN MEAT COOLER Ot I73.9 PERIPHERAL VASCULAR DISEASE, UNSPECIFIED 01/30/2016 SANAM BROWN MEAT COOLER Ot N18.4 CHRONIC KIDNEY DISEASE, STAGE 4 (SEVERE ) 01/31/2016 SANAM BROWN MEAT COOLER Ot R00.2 PALPITATIONS 01/31/2016 SANAM BROWN MEAT COOLER Ot I25.10 ATHSCL HEART DISEASE OF [place] CORONARY 01/31/2016 SANAM BROWN MEAT COOLER Ot I65.23 OCCLUSION AND STENOSIS OF [place] 01/31/2016 SANAM BROWN MEAT COOLER Ot I95.1 ORTHOSTATIC HYPOTENSION 01/31/2016 SANAM BROWN MEAT COOLER Ot N18.4 CHRONIC KIDNEY DISEASE, STAGE 4 (SEVERE ) 01/31/2016 SANAM BROWN MEAT COOLER Ot R00.2 PALPITATIONS 01/31/2016 SARAH ARMSTRONG APRN Ot E11.9 TYPE 2 DIABETES MELLITUS WITHOUT COMPLIC 01/31/2016 SARAH ARMSTRONG APRN Ot I10 ESSENTIAL (PRIMARY) HYPERTENSION 01/31/2016 SARAH ARMSTRONG APRN Ot J44.9 CHRONIC OBSTRUCTIVE PULMONARY DISEASE, U 01/31/2016 SARAH ARMSTRONG APRN Ot R04.0 EPISTAXIS 01/31/2016 SARAH ARMSTRONG APRN Ot Z79.82 ENTHONE SOLDER STRIPPER (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 OF ASPIRIN 01/31/2016 SARAH ARMSTRONG APRN Ot Z79.84 GROUP HOME (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 OF ORAL HYPOGLYC 01/31/2016 SARAH ARMSTRONG APRN Ot Z79.899 OTHER GROUP HOME (CURRENT) DRUG THERAPY 01/31/2016 SARAH ARMSTRONG APRN Ot Z99.81 DEPENDENCE ON SUPPLEMENTAL OXYGEN 02/01/2016 SARAH ARMSTRONG APRN Ot E11.9 TYPE 2 DIABETES MELLITUS WITHOUT COMPLIC 02/01/2016 SARAH ARMSTRONG APRN Ot I10 ESSENTIAL (PRIMARY) HYPERTENSION 02/01/2016 SARAH ARMSTRONG APRN Ot J44.9 CHRONIC OBSTRUCTIVE PULMONARY DISEASE, U 02/01/2016 SARAH ARMSTRONG APRN Ot R04.0 EPISTAXIS 02/01/2016 SARAH ARMSTRONG APRN Ot Z79.82 GROUP HOME (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 OF ASPIRIN 02/01/2016 SARAH ARMSTRONG APRN Ot Z79.84 GROUP HOME (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 OF ORAL HYPOGLYC 02/01/2016 SARAH ARMSTRONG APRN Ot Z79.899 OTHER ENTHONE SOLDER STRIPPER (CURRENT) DRUG THERAPY 02/01/2016 SARAH ARMSTRONG APRN Ot Z99.81 DEPENDENCE ON SUPPLEMENTAL OXYGEN 02/02/2016 SARAH ARMSTRONG APRN Ot E11.9 TYPE 2 DIABETES MELLITUS WITHOUT COMPLIC 02/02/2016 SARAH ARMSTRONG APRN Ot I10 ESSENTIAL (PRIMARY) HYPERTENSION 02/02/2016 SARAH ARMSTRONG APRN Ot J44.9 CHRONIC OBSTRUCTIVE PULMONARY DISEASE, U 02/02/2016 SARAH ARMSTRONG APRN Ot R04.0 EPISTAXIS 02/02/2016 SARAH ARMSTRONG APRN Ot Z79.82 GROUP HOME (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 OF ASPIRIN 02/02/2016 SARAH ARMSTRONG APRN Ot Z79.84 ENTHONE SOLDER STRIPPER (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 OF ORAL HYPOGLYC 02/02/2016 SARAH ARMSTRONG APRN Ot Z79.899 OTHER ENTHONE SOLDER STRIPPER (CURRENT) DRUG THERAPY 02/02/2016 SARAH ARMSTRONG APRN Ot Z99.81 DEPENDENCE ON SUPPLEMENTAL OXYGEN 02/22/2016 SANAM BROWN MEAT COOLER Ot I25.10 ATHSCL HEART DISEASE OF [place] CORONARY 02/22/2016 SANAM BROWN MEAT COOLER Ot I65.23 OCCLUSION AND STENOSIS OF [place] 02/22/2016 SANAM BROWN MEAT COOLER Ot I95.1 ORTHOSTATIC HYPOTENSION 02/22/2016 SANAM BROWN MEAT COOLER Ot N18.4 CHRONIC KIDNEY DISEASE, STAGE 4 (SEVERE ) 02/22/2016 SANAM BROWN MEAT COOLER Ot R00.2 PALPITATIONS 03/03/2016 JEREL KELLEY Ot E11.9 TYPE 2 DIABETES MELLITUS WITHOUT COMPLIC 03/03/2016 JEREL KELLEY Ot S80.01XA CONTUSION OF RIGHT KNEE, INITIAL ENCOUNT 03/03/2016 JEREL KELLEY Ot S89.91XA UNSPECIFIED INJURY OF RIGHT LOWER LEG , I 03/03/2016 JEREL KELLEY Ot W01.0XXA FALL SAME LEV FROM SLIP/TRIP W/O STRIKE 03/03/2016 JEREL KELLEY Ot Y92.013 BEDROOM OF SINGLE-FAMILY (PRIVATE) HOUSE 03/03/2016 JEREL KELLEY Ot Y99.8 OTHER EXTERNAL CAUSE STATUS 03/03/2016 JEREL KELLEY Ot Z79.4 GROUP HOME (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 OF INSULIN 03/03/2016 JEREL KELLEY Ot Z79.82 ENTHONE SOLDER STRIPPER (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 OF ASPIRIN 03/04/2016 FRANCK SALINAS APRN Ot F17.201 NICOTINE DEPENDENCE, UNSPECIFIED, IN REM 03/04/2016 FRANCK SALINAS APRN Ot J43.9 EMPHYSEMA, UNSPECIFIED 03/04/2016 FRANCK SALINAS APRN Ot R06.09 OTHER FORMS OF DYSPNEA 03/04/2016 FRANCK SALINAS APRN Ot R09.02 HYPOXEMIA 03/05/2016 JEREL KELLEY Ot E11.9 TYPE 2 DIABETES MELLITUS WITHOUT COMPLIC 03/05/2016 JEREL KELLEY Ot S80.01XA CONTUSION OF RIGHT KNEE, INITIAL ENCOUNT 03/05/2016 JEREL KELLEY Ot S89.91XA UNSPECIFIED INJURY OF RIGHT LOWER LEG , I 03/05/2016 JEREL KELLEY Ot W01.0XXA FALL SAME LEV FROM SLIP/TRIP W/O STRIKE 03/05/2016 JEREL KELLEY Ot Y92.013 BEDROOM OF SINGLE-FAMILY (PRIVATE) HOUSE 03/05/2016 JEREL KELLEY Ot Y99.8 OTHER EXTERNAL CAUSE STATUS 03/05/2016 JEREL KELLEY Ot Z79.4 GROUP HOME (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 OF INSULIN 03/05/2016 JEREL KELLEY Ot Z79.82 ENTHONE SOLDER STRIPPER (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 OF ASPIRIN 03/18/2016 Ot 217 BENIGN NEOPLASM BREAST 03/18/2016 Ot 787.03 VOMITING ALONE 03/18/2016 Ot 787.03 VOMITING ALONE 03/18/2016 Ot V58.61 ANTICOAGULANTS,LT,CURRENT USE 03/18/2016 Ot V58.83 ENCOUNTER FOR THERAPEUTIC DRUG MONITORIN 03/18/2016 Ot 414.01 CORONARY ATHEROSCLEROSIS OF [place] CORON 03/18/2016 Ot V72.84 EXAM PRE-OPERATIVE NOS 03/18/2016 Ot V76.12 OTH SCREEN MAMMO-MALIGN NEOPLASM OF [place] 03/18/2016 Ot 562.11 DIVERTICULITIS COLON (W/O MENT OF HEMORR 03/18/2016 Ot 593.9 RENAL URETERAL DIS NOS 03/18/2016 Ot 396.3 MITRAL/AORTIC ESTRELLITA INSUFF 03/18/2016 Ot 416.8 CHR PULMON HEART DIS NEC 03/18/2016 Ot 782.3 EDEMA 03/18/2016 Ot 786.09 RESPIRATORY ABNORM NEC 03/18/2016 SUYAPA SOLER, CARROLL Madden Ot 211.3 BENIGN NEOPLASM LG BOWEL 03/18/2016 SUYAPA SOLER, CARROLL Madden Ot 569.0 ANAL RECTAL POLYP 03/18/2016 SUYAPA SOLER, CARROLL Madden Ot 569.82 ULCERATION OF INTESTINE 03/18/2016 SUYAPA SOLER, CARROLL Madden Ot V72.84 EXAM PRE-OPERATIVE NOS 03/18/2016 CLARA SAVAGE MD Ot 680.9 CARBUNCLE NOS 03/18/2016 CLARA SAVAGE MD Ot 719.43 JOINT PAIN-FOREARM 03/18/2016 BLACK PAEZ MEAT COOLER Ot 813.42 FX DISTAL RADIUS NEC-CL 03/18/2016 BLACK PAEZ MEAT COOLER Ot 814.01 FX NAVICULAR, WRIST-CLOS 03/18/2016 BLACK PAEZ MEAT COOLER Ot E928.9 ACCIDENT NOS 03/18/2016 Ot 250.40 DIAB W RENAL MANIFEST, TYPE II OR UNSPEC 03/18/2016 Ot 272.4 HYPERLIPIDEMIA NEC/NOS 03/18/2016 Ot 403.90 HYPTNSV CHR KID DIS, UNSPEC, W CHR KD ST 03/18/2016 Ot 414.00 CORON ATHEROSCLER NOS TYPE VESSEL, NATIV 03/18/2016 Ot 429.9 HEART DISEASE NOS 03/18/2016 Ot 433.10 CAROTID ARTERY OCCLUSION W O CEREBRAL IN 03/18/2016 Ot 440.1 RENAL ARTERY ATHEROSCLER 03/18/2016 Ot 443.9 PERIPH VASCULAR DIS NOS 03/18/2016 Ot 585.4 CHRONIC KIDNEY DISEASE, STAGE IV (SEVERE 03/18/2016 Ot 780.57 UNSPECIFIED SLEEP APNEA 03/18/2016 MARYMA SANAM L MEAT COOLER Ot E78.5 HYPERLIPIDEMIA, UNSPECIFIED 03/18/2016 MARYMA, SANAM L MEAT COOLER Ot G47.30 SLEEP APNEA, UNSPECIFIED 03/18/2016 STEPHANIE SANAM L MEAT COOLER Ot I12.9 HYPERTENSIVE CHRONIC KIDNEY DISEASE W ST 03/18/2016 STEPHANIE SANAM L MEAT COOLER Ot I25.10 ATHSCL HEART DISEASE OF [place] CORONARY 03/18/2016 STEPHANIE SANAM L MEAT COOLER Ot I35.8 OTHER NONRHEUMATIC AORTIC VALVE DISORDER 03/18/2016 STEPHANIE SANAM L MEAT COOLER Ot I51.89 OTHER ILL-DEFINED HEART DISEASES 03/18/2016 SANAM BROWN MEAT COOLER Ot I73.9 PERIPHERAL VASCULAR DISEASE, UNSPECIFIED 03/18/2016 SANAM BROWN MEAT COOLER Ot N18.4 CHRONIC KIDNEY DISEASE, STAGE 4 (SEVERE ) 03/18/2016 SANAM BROWN L MEAT COOLER Ot E78.5 HYPERLIPIDEMIA, UNSPECIFIED 03/18/2016 BAISANAM VACA L MEAT COOLER Ot G47.30 SLEEP APNEA, UNSPECIFIED 03/18/2016 SANAM BROWN L MEAT COOLER Ot I10 ESSENTIAL (PRIMARY) HYPERTENSION 03/18/2016 SANAM BROWN L MEAT COOLER Ot I25.10 ATHSCL HEART DISEASE OF [place] CORONARY 03/18/2016 SANAM BROWN MEAT COOLER Ot I73.9 PERIPHERAL VASCULAR DISEASE, UNSPECIFIED 03/18/2016 SANAM BROWN MEAT COOLER Ot I77.9 DISORDER OF ARTERIES AND ARTERIOLES, UNS 03/18/2016 SANAM BROWN MEAT COOLER Ot R29.898 OTH SYMPTOMS AND SIGNS INVOLVING THE MUS 03/18/2016 MANUEL CALZADA APRN Ot R06.02 SHORTNESS OF BREATH 03/18/2016 SELVIN SOLER, PHIL Sánchez Ot R06.02 SHORTNESS OF BREATH 03/18/2016 LAY REYES DO Ot E66.01 MORBID (SEVERE) OBESITY DUE TO EXCESS CA 03/18/2016 LAY REYES DO Ot G47.30 SLEEP APNEA, UNSPECIFIED 03/18/2016 LAY REYES DO Ot R06.09 OTHER FORMS OF DYSPNEA 03/18/2016 LAY REYES DO Ot Z72.0 TOBACCO USE 03/18/2016 FRANCK SALINAS APRN Ot E66.01 MORBID (SEVERE) OBESITY DUE TO EXCESS CA 03/18/2016 FRANCK SALINAS APRN Ot G47.30 SLEEP APNEA, UNSPECIFIED 03/18/2016 FRANCK SALINAS APRN Ot J43.9 EMPHYSEMA, UNSPECIFIED 03/18/2016 FRANCK SALINAS APRN Ot R06.09 OTHER FORMS OF DYSPNEA 03/18/2016 FRANCK SALINAS APRN Ot R59.1 GENERALIZED ENLARGED LYMPH NODES 03/18/2016 FRANCK SALINAS APRN Ot Z72.0 TOBACCO USE 03/18/2016 RITA, FRANCK E HEAD OF [employer]LO[employer]ATEG[employer] PARTNERSHIPS Ot F17.201 NICOTINE DEPENDENCE, UNSPECIFIED, IN REM 03/18/2016 JAMIA SALINASINE Mathieu HEAD OF [employer] PARTNERSHIPS Ot J43.9 EMPHYSEMA, UNSPECIFIED 03/18/2016 RITAJAMIA DOWLINGINE Mathieu HEAD OF [employer] Ot R06.09 OTHER FORMS OF DYSPNEA 03/18/2016 RITA FRANCK Murdock HEAD OF [employer]NERSH[employer] Ot R09.02 HYPOXEMIA 03/18/2016 BAILIO, SANAM L MEAT COOLER Ot R00.2 PALPITATIONS 03/18/2016 BAIMA, SANAM L MEAT COOLER Ot E78.5 HYPERLIPIDEMIA, UNSPECIFIED 03/18/2016 BAIMA, SANAM L MEAT COOLER Ot I12.9 HYPERTENSIVE CHRONIC KIDNEY DISEASE W ST 03/18/2016 BAIMA, SANAM L MEAT COOLER Ot I25.10 ATHSCL HEART DISEASE OF [place] CORONARY 03/18/2016 BAIMA, SANAM L MEAT COOLER Ot I48.0 PAROXYSMAL ATRIAL FIBRILLATION 03/18/2016 BAIMA, SANAM L MEAT COOLER Ot I65.23 OCCLUSION AND STENOSIS OF [place] 03/18/2016 BAIMA, SANAM L MEAT COOLER Ot I73.9 PERIPHERAL VASCULAR DISEASE, UNSPECIFIED 03/18/2016 BAIMA, SANAM L MEAT COOLER Ot N18.4 CHRONIC KIDNEY DISEASE, STAGE 4 (SEVERE ) 03/18/2016 BAIMA, SANAM L MEAT COOLER Ot I25.10 ATHSCL HEART DISEASE OF [place] CORONARY 03/18/2016 BAIMA, SANAM L MEAT COOLER Ot I65.23 OCCLUSION AND STENOSIS OF [place] 03/18/2016 BAIMA, SANAM L MEAT COOLER Ot I95.1 ORTHOSTATIC HYPOTENSION 03/18/2016 BAIMA, SANAM L MEAT COOLER Ot N18.4 CHRONIC KIDNEY DISEASE, STAGE 4 (SEVERE ) 03/18/2016 BAIMA, SANAM L MEAT COOLER Ot R00.2 PALPITATIONS 03/19/2016 SELVIN SOLER, PHIL Sánchez Ot M25.561 PAIN IN RIGHT KNEE 03/27/2016 Ot 789.04 ABDOMINAL PAIN, LEFT LOWER QUADRANT 03/28/2016 DAVID RICHARDS, ALI FACP CCDS Ot D64.9 ANEMIA, UNSPECIFIED 03/28/2016 DAVID SOLER FACC, ALI FACP CCDS Ot D72.829 ELEVATED WHITE BLOOD CELL COUNT , UNSPECI 03/28/2016 DAVID SOLER FACC, ALI FACP CCDS Ot E11.51 TYPE 2 DIABETES W DIABETIC PERIPHERAL AN 03/28/2016 DAVID SOLER FACC, ALI FACP CCDS Ot E66.9 OBESITY, UNSPECIFIED 03/28/2016 DAVID SOLER FACC, ALI FACP CCDS Ot E78.00 PURE HYPERCHOLESTEROLEMIA, UNSPECIFIED 03/28/2016 DAVID SOLER FACC, ALI FACP CCDS Ot E89.0 POSTPROCEDURAL HYPOTHYROIDISM 03/28/2016 DAVID SOLER FACC, ALI FACP CCDS Ot F32.9 MAJOR DEPRESSIVE DISORDER, SINGLE EPISOD 03/28/2016 DAVID SOLER FACC, ALI FACP CCDS Ot F41.9 ANXIETY DISORDER, UNSPECIFIED 03/28/2016 DAVID SOLER FACC, ALI FACP CCDS Ot G47.30 SLEEP APNEA, UNSPECIFIED 03/28/2016 DAVID SOLER FACC, ALI FACP CCDS Ot I07.1 RHEUMATIC TRICUSPID INSUFFICIENCY 03/28/2016 DAVID SOLER FACC, ALI FACP CCDS Ot I12.9 HYPERTENSIVE CHRONIC KIDNEY DISEASE W ST 03/28/2016 DAVID SOLER FACC, ALI FACP CCDS Ot I25.10 ATHSCL HEART DISEASE OF [place] CORONARY 03/28/2016 DAVID SOLER FACC, ALI FACP CCDS Ot I25.2 OLD MYOCARDIAL INFARCTION 03/28/2016 DAVID SOLER FACC, ALI FACP CCDS Ot I48.0 PAROXYSMAL ATRIAL FIBRILLATION 03/28/2016 DAVID SOLER FACC, ALI FACP CCDS Ot I65.23 OCCLUSION AND STENOSIS OF [place] 03/28/2016 DAVID SOLER FACC, ALI FACP CCDS Ot I87.2 VENOUS INSUFFICIENCY (CHRONIC) ( PERIPHER 03/28/2016 DAVID SOLER FACC, ALI FACP CCDS Ot J44.1 CHRONIC OBSTRUCTIVE PULMONARY DISEASE W 03/28/2016 DAVID SOLER FACC, ALI FACP CCDS Ot M10.9 GOUT, UNSPECIFIED 03/28/2016 DAVID SOLER FACC, ALI FACP CCDS Ot M17.11 UNILATERAL PRIMARY OSTEOARTHRITIS, RIGHT 03/28/2016 DAVID SOLER FACC, ALI FACP CCDS Ot N18.4 CHRONIC KIDNEY DISEASE, STAGE 4 ( SEVERE) 03/28/2016 DAVID SOLER FACC, ALI FACP CCDS Ot R04.2 HEMOPTYSIS 03/28/2016 DAVID SOLER FACC, ALI FACP CCDS Ot Z68.42 BODY MASS INDEX (BMI) 45.0-49.9 , ADULT 03/28/2016 DAVID SOLER FACC, ALI FACP CCDS Ot Z79.01 ENTHONE SOLDER STRIPPER (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 OF ANTICOAGULANT 03/28/2016 DAVID SOLER FACC, ALI FACP CCDS Ot Z79.4 GROUP HOME (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 OF INSULIN 03/28/2016 DAVID SOLER FACC, ALI FACP CCDS Ot Z87.11 PERSONAL HISTORY OF PEPTIC ULCER DISEASE 03/28/2016 DAVID SOLER FACC, ALI FACP CCDS Ot Z87.891 PERSONAL HISTORY OF NICOTINE DEPENDENCE 03/28/2016 DAVID SOLER FACC, ALI FACP CCDS Ot Z95.5 PRESENCE OF CORONARY ANGIOPLASTY IMPLANT 03/28/2016 DAVID SOLER FACC, KEARA FACP CCDS Ot Z95.828 PRESENCE OF OTHER VASCULAR IMPLANTS AND 03/28/2016 KEARA HERNANDEZ MD, FACC FACP CCDS Ot Z99.81 DEPENDENCE ON SUPPLEMENTAL OXYGEN 03/29/2016 DAVID SOLER FACC, KEARA FACP CCDS Ot D64.9 ANEMIA, UNSPECIFIED 03/29/2016 DAVID SOLER FACC, ALI FACP CCDS Ot D72.829 ELEVATED WHITE BLOOD CELL COUNT , UNSPECI 03/29/2016 DAVID SOLER FACC ALI FACP CCDS Ot E11.51 TYPE 2 DIABETES W DIABETIC PERIPHERAL AN 03/29/2016 DAVID SOLER FACC, KEARA FACP CCDS Ot E66.9 OBESITY, UNSPECIFIED 03/29/2016 DAVID SOLER FACC, ALI FACP CCDS Ot E78.00 PURE HYPERCHOLESTEROLEMIA, UNSPECIFIED 03/29/2016 DAVID SOLER FACC, ALI FACP CCDS Ot E89.0 POSTPROCEDURAL HYPOTHYROIDISM 03/29/2016 DAVID SOLER FACC ALI FACP CCDS Ot F32.9 MAJOR DEPRESSIVE DISORDER, SINGLE EPISOD 03/29/2016 DAVID SOLER FACC, ALI FACP CCDS Ot F41.9 ANXIETY DISORDER, UNSPECIFIED 03/29/2016 DAVID SOLER FACC, ALI FACP CCDS Ot G47.30 SLEEP APNEA, UNSPECIFIED 03/29/2016 DAVID SOLER FACC, ALI FACP CCDS Ot I07.1 RHEUMATIC TRICUSPID INSUFFICIENCY 03/29/2016 DAVID SOLER FACC ALI FACP CCDS Ot I12.9 HYPERTENSIVE CHRONIC KIDNEY DISEASE W ST 03/29/2016 DAVID SOLER FACC ALI FACP CCDS Ot I25.10 ATHSCL HEART DISEASE OF [place] CORONARY 03/29/2016 DAVID SOLER FACC, KAERA FACP CCDS Ot I25.2 OLD MYOCARDIAL INFARCTION 03/29/2016 DAVID SOLER FACC, KEARA FACP CCDS Ot I48.0 PAROXYSMAL ATRIAL FIBRILLATION 03/29/2016 DAVID SOLER FACC, ALI FACP CCDS Ot I65.23 OCCLUSION AND STENOSIS OF [place] 03/29/2016 DAVID SOLER FACC, ALI FACP CCDS Ot I87.2 VENOUS INSUFFICIENCY (CHRONIC) ( PERIPHER 03/29/2016 DAVID SOLER FACC, ALI FACP CCDS Ot J44.1 CHRONIC OBSTRUCTIVE PULMONARY DISEASE W 03/29/2016 DAVID SOLER FACC ALI FACP CCDS Ot M10.9 GOUT, UNSPECIFIED 03/29/2016 DAVID SOLER FACC, ALI FACP CCDS Ot M17.11 UNILATERAL PRIMARY OSTEOARTHRITIS, RIGHT 03/29/2016 DAVID SOLER FACC, ALI FACP CCDS Ot N18.4 CHRONIC KIDNEY DISEASE, STAGE 4 ( SEVERE) 03/29/2016 KEARA HERNANDEZ MD, FACC FACP CCDS Ot R04.2 HEMOPTYSIS 03/29/2016 DAVID SOLER FACC ALI FACP CCDS Ot Z68.42 BODY MASS INDEX (BMI) 45.0-49.9 , ADULT 03/29/2016 KEARA HERNANDEZ MD, FACC FACP CCDS Ot Z79.01 GROUP HOME (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 OF ANTICOAGULANT 03/29/2016 DAVID SOLER FACC ALI FACP CCDS Ot Z79.4 GROUP HOME (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 OF INSULIN 03/29/2016 KEARA HERNANDEZ MD, FACC FACP CCDS Ot Z87.11 PERSONAL HISTORY OF PEPTIC ULCER DISEASE 03/29/2016 DAVID SOLER FACC ALI FACP CCDS Ot Z87.891 PERSONAL HISTORY OF NICOTINE DEPENDENCE 03/29/2016 DAVID SOLER FACC ALI FACP CCDS Ot Z95.5 PRESENCE OF CORONARY ANGIOPLASTY IMPLANT 03/29/2016 DAVID SOLER FACC ALI FACP CCDS Ot Z95.828 PRESENCE OF OTHER VASCULAR IMPLANTS AND 03/29/2016 DAVID SOLER FACC ALI FACP CCDS Ot Z99.81 DEPENDENCE ON SUPPLEMENTAL OXYGEN 03/29/2016 DAVID SOLER FACC ALI FACP CCDS Ot D64.9 ANEMIA, UNSPECIFIED 03/29/2016 DAVID SOLER FACC, ALI FACP CCDS Ot D72.829 ELEVATED WHITE BLOOD CELL COUNT , UNSPECI 03/29/2016 DAVID SOLER FACC, ALI FACP CCDS Ot 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 03/29/2016 DAVID SOLER FACC, ALI FACP CCDS Ot E11.51 TYPE 2 DIABETES W DIABETIC PERIPHERAL AN 03/29/2016 DAVID SOLER FACC, ALI FACP CCDS Ot E66.9 OBESITY, UNSPECIFIED 03/29/2016 DAVID SOLER FACC, ALI FACP CCDS Ot E78.00 PURE HYPERCHOLESTEROLEMIA, UNSPECIFIED 03/29/2016 DAVID SOLER FACC, ALI FACP CCDS Ot E89.0 POSTPROCEDURAL HYPOTHYROIDISM 03/29/2016 DAVID SOLER FACC, ALI FACP CCDS Ot F32.9 MAJOR DEPRESSIVE DISORDER, SINGLE EPISOD 03/29/2016 DAVID SOLER FACC, ALI FACP CCDS Ot F41.9 ANXIETY DISORDER, UNSPECIFIED 03/29/2016 DAVID SOLER FACC, ALI FACP CCDS Ot G47.30 SLEEP APNEA, UNSPECIFIED 03/29/2016 DAVID SOLER FACC, ALI FACP CCDS Ot I07.1 RHEUMATIC TRICUSPID INSUFFICIENCY 03/29/2016 DAVID SOLER FACC, ALI FACP CCDS Ot I12.9 HYPERTENSIVE CHRONIC KIDNEY DISEASE W ST 03/29/2016 DAVID SOLER FACC, ALI FACP CCDS Ot I25.10 ATHSCL HEART DISEASE OF [place] CORONARY 03/29/2016 DAVID SOLER FACC, ALI FACP CCDS Ot I25.2 OLD MYOCARDIAL INFARCTION 03/29/2016 DAVID SOLER FACC, ALI FACP CCDS Ot I48.0 PAROXYSMAL ATRIAL FIBRILLATION 03/29/2016 DAVID SOLER FACC, ALI FACP CCDS Ot I65.23 OCCLUSION AND STENOSIS OF [place] 03/29/2016 DAVID SOLER FACC, ALI FACP CCDS Ot I87.2 VENOUS INSUFFICIENCY (CHRONIC) ( PERIPHER 03/29/2016 DAVID SOLER FACC, ALI FACP CCDS Ot J44.1 CHRONIC OBSTRUCTIVE PULMONARY DISEASE W 03/29/2016 DAVID SOLER FACC, ALI FACP CCDS Ot M10.9 GOUT, UNSPECIFIED 03/29/2016 DAVID SOLER FACC, ALI FACP CCDS Ot M17.11 UNILATERAL PRIMARY OSTEOARTHRITIS, RIGHT 03/29/2016 DAVID SOLER FACC, ALI FACP CCDS Ot N18.4 CHRONIC KIDNEY DISEASE, STAGE 4 ( SEVERE) 03/29/2016 DAVID SOLER FACC, ALI FACP CCDS Ot R04.2 HEMOPTYSIS 03/29/2016 DAVID SOLER FACC, ALI FACP CCDS Ot Z68.42 BODY MASS INDEX (BMI) 45.0-49.9 , ADULT 03/29/2016 DAVID SOLER FACC, ALI FACP CCDS Ot Z79.01 GROUP HOME (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 OF ANTICOAGULANT 03/29/2016 DAVID SOLER FACC, ALI FACP CCDS Ot 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 03/29/2016 DAVID SOLER FACC, KEARA FACP CCDS Ot Z87.11 PERSONAL HISTORY OF PEPTIC ULCER DISEASE 03/29/2016 DAVID SOLER FACC, ALI FACP CCDS Ot Z87.891 PERSONAL HISTORY OF NICOTINE DEPENDENCE 03/29/2016 DAVID SOLER FACC ALI FACP CCDS Ot Z95.5 PRESENCE OF CORONARY ANGIOPLASTY IMPLANT 03/29/2016 DAVID SOLER FACC, ALI FACP CCDS Ot Z95.828 PRESENCE OF OTHER VASCULAR IMPLANTS AND 03/29/2016 DAVID SOLER FACC ALI FACP CCDS Ot Z99.81 DEPENDENCE ON SUPPLEMENTAL OXYGEN 04/01/2016 LAY REYES DO Ot R13.10 DYSPHAGIA, UNSPECIFIED 04/01/2016 LAY REYES DO Ot R19.5 OTHER FECAL ABNORMALITIES 04/01/2016 LAY REYES DO Ot Z01.818 ENCOUNTER FOR OTHER PREPROCEDURAL EXAMIN 04/02/2016 Ot V58.61 ANTICOAGULANTS,LT,CURRENT USE 04/02/2016 Ot V58.83 ENCOUNTER FOR THERAPEUTIC DRUG MONITORIN 04/02/2016 SANAM BORWN Ot R00.2 PALPITATIONS 04/02/2016 LAY REYES DO Ot R13.10 DYSPHAGIA, UNSPECIFIED 04/02/2016 LAY REYES DO Ot R19.5 OTHER FECAL ABNORMALITIES 04/02/2016 LAY REYES DO Ot Z01.818 ENCOUNTER FOR OTHER PREPROCEDURAL EXAMIN 04/02/2016 KEARA HERNANDEZ MD, FACC FACP CCDS Ot D64.9 ANEMIA, UNSPECIFIED 04/02/2016 DAVID SOLER FACC, ALI FACP CCDS Ot D72.829 ELEVATED WHITE BLOOD CELL COUNT , UNSPECI 04/02/2016 DAVID SOLER FACC, ALI FACP CCDS Ot 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 04/02/2016 DAVID SOLER FACC, ALI FACP CCDS Ot E11.51 TYPE 2 DIABETES W DIABETIC PERIPHERAL AN 04/02/2016 DAVID SOLER FACC, ALI FACP CCDS Ot E66.9 OBESITY, UNSPECIFIED 04/02/2016 DAVID SOLER FACC, ALI FACP CCDS Ot E78.00 PURE HYPERCHOLESTEROLEMIA, UNSPECIFIED 04/02/2016 DAVID SOLER FACC, ALI FACP CCDS Ot E89.0 POSTPROCEDURAL HYPOTHYROIDISM 04/02/2016 DAVID SOLER FACC, ALI FACP CCDS Ot F32.9 MAJOR DEPRESSIVE DISORDER, SINGLE EPISOD 04/02/2016 DAVID SOLER FACC, ALI FACP CCDS Ot F41.9 ANXIETY DISORDER, UNSPECIFIED 04/02/2016 DAVID SOLER FACC, ALI FACP CCDS Ot G47.30 SLEEP APNEA, UNSPECIFIED 04/02/2016 DAVID SOLER FACC, ALI FACP CCDS Ot I07.1 RHEUMATIC TRICUSPID INSUFFICIENCY 04/02/2016 DAVID SOLER FACC, ALI FACP CCDS Ot I12.9 HYPERTENSIVE CHRONIC KIDNEY DISEASE W ST 04/02/2016 DAVID SOLER FACC, ALI FACP CCDS Ot I25.10 ATHSCL HEART DISEASE OF [place] CORONARY 04/02/2016 DAVID SOLER FACC, ALI FACP CCDS Ot I25.2 OLD MYOCARDIAL INFARCTION 04/02/2016 DAVID SOLER FACC, ALI FACP CCDS Ot I48.0 PAROXYSMAL ATRIAL FIBRILLATION 04/02/2016 DAVID SOLER FACC, ALI FACP CCDS Ot I65.23 OCCLUSION AND STENOSIS OF [place] 04/02/2016 DAVID SOLER FACC, ALI FACP CCDS Ot I87.2 VENOUS INSUFFICIENCY (CHRONIC) ( PERIPHER 04/02/2016 DAVID SOLER FACC, ALI FACP CCDS Ot J44.1 CHRONIC OBSTRUCTIVE PULMONARY DISEASE W 04/02/2016 DAVID SOLER FACC, ALI FACP CCDS Ot M10.9 GOUT, UNSPECIFIED 04/02/2016 DAVID SOLER FACC, ALI FACP CCDS Ot M17.11 UNILATERAL PRIMARY OSTEOARTHRITIS, RIGHT 04/02/2016 KEARA HERNANDEZ MD, FACC FACP CCDS Ot N18.4 CHRONIC KIDNEY DISEASE, STAGE 4 ( SEVERE) 04/02/2016 KEARA HERNANDEZ MD, FACC FACP CCDS Ot R04.2 HEMOPTYSIS 04/02/2016 DAVID SOLER FACC ALI FACP CCDS Ot Z68.42 BODY MASS INDEX (BMI) 45.0-49.9 , ADULT 04/02/2016 KEARA HERNANDEZ MD, FACC FACP CCDS Ot Z79.01 GROUP HOME (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 OF ANTICOAGULANT 04/02/2016 KEARA HERNANDEZ MD, FACC FACP CCDS Ot 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 04/02/2016 KEARA HERNANDEZ MD, FACC FACP CCDS Ot Z87.11 PERSONAL HISTORY OF PEPTIC ULCER DISEASE 04/02/2016 DAVID SOLER FACC ALI FACP CCDS Ot Z87.891 PERSONAL HISTORY OF NICOTINE DEPENDENCE 04/02/2016 KEARA HERNANDEZ MD, FACC FACP CCDS Ot Z95.5 PRESENCE OF CORONARY ANGIOPLASTY IMPLANT 04/02/2016 KEARA HERNANDEZ MD, FACC FACP CCDS Ot Z95.828 PRESENCE OF OTHER VASCULAR IMPLANTS AND 04/02/2016 KEARA HERNANDEZ MD, FACC FACP CCDS Ot Z99.81 DEPENDENCE ON SUPPLEMENTAL OXYGEN 04/02/2016 KEARA HERNANDEZ MD, FACC FACP CCDS Ot D64.9 ANEMIA, UNSPECIFIED 04/02/2016 KEARA HERNANDEZ MD, FACC FACP CCDS Ot D72.829 ELEVATED WHITE BLOOD CELL COUNT , UNSPECI 04/02/2016 KEARA HERNANDEZ MD, FACC FACP CCDS Ot 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 04/02/2016 DAVID SOLER FACC ALI FACP CCDS Ot E11.51 TYPE 2 DIABETES W DIABETIC PERIPHERAL AN 04/02/2016 KEARA HERNANDEZ MD, FACC FACP CCDS Ot E66.9 OBESITY, UNSPECIFIED 04/02/2016 DAVID SOLER FACC ALI FACP CCDS Ot E78.00 PURE HYPERCHOLESTEROLEMIA, UNSPECIFIED 04/02/2016 DAVID SOLER FACC ALI FACP CCDS Ot E89.0 POSTPROCEDURAL HYPOTHYROIDISM 04/02/2016 KEARA HERNANDEZ MD, FACC FACP CCDS Ot F32.9 MAJOR DEPRESSIVE DISORDER, SINGLE EPISOD 04/02/2016 DAVID SOLER FACC, ALI FACP CCDS Ot F41.9 ANXIETY DISORDER, UNSPECIFIED 04/02/2016 DAVID SOLER FACC, ALI FACP CCDS Ot G47.30 SLEEP APNEA, UNSPECIFIED 04/02/2016 DAVID SOLER FACC, ALI FACP CCDS Ot I07.1 RHEUMATIC TRICUSPID INSUFFICIENCY 04/02/2016 DAVID SOLER FACC, ALI FACP CCDS Ot I12.9 HYPERTENSIVE CHRONIC KIDNEY DISEASE W ST 04/02/2016 DAVID SOLER FACC, ALI FACP CCDS Ot I25.10 ATHSCL HEART DISEASE OF [place] CORONARY 04/02/2016 DAVID SOLER FACC, ALI FACP CCDS Ot I25.2 OLD MYOCARDIAL INFARCTION 04/02/2016 DAVID SOLER FACC, ALI FACP CCDS Ot I48.0 PAROXYSMAL ATRIAL FIBRILLATION 04/02/2016 DAVID SOLER FACC, ALI FACP CCDS Ot I65.23 OCCLUSION AND STENOSIS OF [place] 04/02/2016 DAVID SOLER FACC, ALI FACP CCDS Ot I87.2 VENOUS INSUFFICIENCY (CHRONIC) ( PERIPHER 04/02/2016 DAVID SOLER FACC, ALI FACP CCDS Ot J44.1 CHRONIC OBSTRUCTIVE PULMONARY DISEASE W 04/02/2016 DAVID SOLER FACC, ALI FACP CCDS Ot M10.9 GOUT, UNSPECIFIED 04/02/2016 DAVID SOLER FACC, ALI FACP CCDS Ot M17.11 UNILATERAL PRIMARY OSTEOARTHRITIS, RIGHT 04/02/2016 DAVID SOLER FACC, ALI FACP CCDS Ot N18.4 CHRONIC KIDNEY DISEASE, STAGE 4 ( SEVERE) 04/02/2016 DAVID SOLER FACC, ALI FACP CCDS Ot R04.2 HEMOPTYSIS 04/02/2016 DAVID SOLER FACC, ALI FACP CCDS Ot Z68.42 BODY MASS INDEX (BMI) 45.0-49.9 , ADULT 04/02/2016 DAVID SOLER FACC, ALI FACP CCDS Ot Z79.01 ENTHONE SOLDER STRIPPER (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 OF ANTICOAGULANT 04/02/2016 DAVID SOLER FACC, ALI FACP CCDS Ot Z79.4 GROUP HOME (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 OF INSULIN 04/02/2016 DAVID SOLER FACC, ALI FACP CCDS Ot Z87.11 PERSONAL HISTORY OF PEPTIC ULCER DISEASE 04/02/2016 DAVID SOLER FACC, ALI FACP CCDS Ot Z87.891 PERSONAL HISTORY OF NICOTINE DEPENDENCE 04/02/2016 DAVID SOLER FACC, ALI FACP CCDS Ot Z95.5 PRESENCE OF CORONARY ANGIOPLASTY IMPLANT 04/02/2016 DAVID SOLER FACC, ALI FACP CCDS Ot Z95.828 PRESENCE OF OTHER VASCULAR IMPLANTS AND 04/02/2016 DAVID SOLER FACC, ALI FACP CCDS Ot Z99.81 DEPENDENCE ON SUPPLEMENTAL OXYGEN 04/02/2016 DAVID SOLER FACC, ALI FACP CCDS Ot D64.9 ANEMIA, UNSPECIFIED 04/02/2016 DAVID SOLER FACC, ALI FACP CCDS Ot D72.829 ELEVATED WHITE BLOOD CELL COUNT , UNSPECI 04/02/2016 DAVID SOLER FACC, ALI FACP CCDS Ot 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 04/02/2016 DAVID SOLER FACC, ALI FACP CCDS Ot E11.51 TYPE 2 DIABETES W DIABETIC PERIPHERAL AN 04/02/2016 DAVID SOLER FACC, KEARA FACP CCDS Ot E66.9 OBESITY, UNSPECIFIED 04/02/2016 DAVID SOLER FACC, ALI FACP CCDS Ot E78.00 PURE HYPERCHOLESTEROLEMIA, UNSPECIFIED 04/02/2016 DAVID SOLER FACC, ALI FACP CCDS Ot E89.0 POSTPROCEDURAL HYPOTHYROIDISM 04/02/2016 DAVID SOLER FACC, ALI FACP CCDS Ot F32.9 MAJOR DEPRESSIVE DISORDER, SINGLE EPISOD 04/02/2016 DAVID SOLER FACC, ALI FACP CCDS Ot F41.9 ANXIETY DISORDER, UNSPECIFIED 04/02/2016 DAVID SOLER FACC, ALI FACP CCDS Ot G47.30 SLEEP APNEA, UNSPECIFIED 04/02/2016 DAVID SOLER FACC, ALI FACP CCDS Ot I07.1 RHEUMATIC TRICUSPID INSUFFICIENCY 04/02/2016 DAVID SOLER FACC, ALI FACP CCDS Ot I12.9 HYPERTENSIVE CHRONIC KIDNEY DISEASE W ST 04/02/2016 DAVID SOLER FACC, ALI FACP CCDS Ot I25.10 ATHSCL HEART DISEASE OF [place] CORONARY 04/02/2016 DAVID SOLER FACC, ALI FACP CCDS Ot I25.2 OLD MYOCARDIAL INFARCTION 04/02/2016 DAVID SOLER FACC, ALI FACP CCDS Ot I48.0 PAROXYSMAL ATRIAL FIBRILLATION 04/02/2016 DAVID SOLER FACC, ALI FACP CCDS Ot I65.23 OCCLUSION AND STENOSIS OF [place] 04/02/2016 DAVID SOLER FACC, ALI FACP CCDS Ot I87.2 VENOUS INSUFFICIENCY (CHRONIC) ( PERIPHER 04/02/2016 DAVID SOLER FACC, ALI FACP CCDS Ot J44.1 CHRONIC OBSTRUCTIVE PULMONARY DISEASE W 04/02/2016 DAVID SOLER FACC, ALI FACP CCDS Ot M10.9 GOUT, UNSPECIFIED 04/02/2016 DAVID SOLER FACC, ALI FACP CCDS Ot M17.11 UNILATERAL PRIMARY OSTEOARTHRITIS, RIGHT 04/02/2016 DAVID SOLER FACC, ALI FACP CCDS Ot N18.4 CHRONIC KIDNEY DISEASE, STAGE 4 ( SEVERE) 04/02/2016 DAVID SOLER FACC, ALI FACP CCDS Ot R04.2 HEMOPTYSIS 04/02/2016 DAVID SOLER FACC, ALI FACP CCDS Ot Z68.42 BODY MASS INDEX (BMI) 45.0-49.9 , ADULT 04/02/2016 DAVID SOLER FACC ALI FACP CCDS Ot Z79.01 GROUP HOME (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 OF ANTICOAGULANT 04/02/2016 DAVID SOLER FACC, ALI FACP CCDS Ot 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 04/02/2016 DAVID SOLER FACC, ALI FACP CCDS Ot Z87.11 PERSONAL HISTORY OF PEPTIC ULCER DISEASE 04/02/2016 DAVID SOLER FACC, ALI FACP CCDS Ot Z87.891 PERSONAL HISTORY OF NICOTINE DEPENDENCE 04/02/2016 DAVID SOLER FACC, ALI FACP CCDS Ot Z95.5 PRESENCE OF CORONARY ANGIOPLASTY IMPLANT 04/02/2016 DAVID SOLER FACC, ALI FACP CCDS Ot Z95.828 PRESENCE OF OTHER VASCULAR IMPLANTS AND 04/02/2016 DAVID SOLER FACC, ALI FACP CCDS Ot Z99.81 DEPENDENCE ON SUPPLEMENTAL OXYGEN 04/03/2016 LAY REYES DO Ot R13.10 DYSPHAGIA, UNSPECIFIED 04/03/2016 LAY REYES DO Ot R19.5 OTHER FECAL ABNORMALITIES 04/03/2016 LAY REYES DO Ot Z01.818 ENCOUNTER FOR OTHER PREPROCEDURAL EXAMIN 04/03/2016 LAY REYES DO Ot D64.9 ANEMIA, UNSPECIFIED 04/03/2016 LAY REYES DO Ot D72.829 ELEVATED WHITE BLOOD CELL COUNT, UNSPECI 04/03/2016 LAY REYES DO, Ot E03.9 HYPOTHYROIDISM, UNSPECIFIED 04/03/2016 LAY REYES DO, Ot E11.9 TYPE 2 DIABETES MELLITUS WITHOUT COMPLIC 04/03/2016 LAY REYES DO, Ot E66.01 MORBID (SEVERE) OBESITY DUE TO EXCESS CA 04/03/2016 LAY REYES DO, Ot E78.00 PURE HYPERCHOLESTEROLEMIA, UNSPECIFIED 04/03/2016 LAY REYES DO, Ot F32.9 MAJOR DEPRESSIVE DISORDER, SINGLE EPISOD 04/03/2016 LAY REYES DO, Ot F41.9 ANXIETY DISORDER, UNSPECIFIED 04/03/2016 LAY REYES DO, Ot G47.33 OBSTRUCTIVE SLEEP APNEA (ADULT) (PEDIATR 04/03/2016 LAY REYES DO, Ot I12.9 HYPERTENSIVE CHRONIC KIDNEY DISEASE W ST 04/03/2016 LAY REYES DO, Ot I25.10 ATHSCL HEART DISEASE OF [place] CORONARY 04/03/2016 LAY REYES DO, Ot I25.2 OLD MYOCARDIAL INFARCTION 04/03/2016 LAY REYES DO Ot I46.9 CARDIAC ARREST, CAUSE UNSPECIFIED 04/03/2016 LAY REYES DO, Ot I48.91 UNSPECIFIED ATRIAL FIBRILLATION 04/03/2016 LAY REYES DO Ot I65.23 OCCLUSION AND STENOSIS OF [place] 04/03/2016 LAY REYES DO Ot I73.9 PERIPHERAL VASCULAR DISEASE, UNSPECIFIED 04/03/2016 LAY REYES DO Ot I87.2 VENOUS INSUFFICIENCY (CHRONIC) (PERIPHER 04/03/2016 LAY REYES DO Ot I95.9 HYPOTENSION, UNSPECIFIED 04/03/2016 LAY REYES DO, Ot J44.9 CHRONIC OBSTRUCTIVE PULMONARY DISEASE, U 04/03/2016 LAY REYES DO, Ot J96.00 ACUTE RESPIRATORY FAILURE, UNSP W HYPOXI 04/03/2016 LAY REYES DO, Ot N18.4 CHRONIC KIDNEY DISEASE, STAGE 4 (SEVERE) 04/03/2016 LAY REYES DO Ot R04.2 HEMOPTYSIS 04/03/2016 LAY REYES DO Ot R04.89 HEMORRHAGE FROM OTHER SITES IN RESPIRATO 04/03/2016 LAY REYES DO, Ot R65.20 SEVERE SEPSIS WITHOUT SEPTIC SHOCK 04/03/2016 LAY REYES DO, Ot Z68.42 BODY MASS INDEX (BMI) 45.0-49.9, ADULT 04/03/2016 LAY REYES DO, Ot Z79.01 GROUP HOME (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 OF ANTICOAGULANT 04/03/2016 LAY REYES DO, Ot 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 04/03/2016 LAY REYES DO, Ot Z87.891 PERSONAL HISTORY OF NICOTINE DEPENDENCE 04/03/2016 LAY REYES DO, Ot Z95.5 PRESENCE OF CORONARY ANGIOPLASTY IMPLANT 04/04/2016 LAY REYES DO, Ot D64.9 ANEMIA, UNSPECIFIED 04/04/2016 LAY REYES DO, Ot D72.829 ELEVATED WHITE BLOOD CELL COUNT, UNSPECI 04/04/2016 LAY REYES DO, Ot E03.9 HYPOTHYROIDISM, UNSPECIFIED 04/04/2016 LAY REYES DO, Ot E11.9 TYPE 2 DIABETES MELLITUS WITHOUT COMPLIC 04/04/2016 LAY REYES DO, Ot E66.01 MORBID (SEVERE) OBESITY DUE TO EXCESS CA 04/04/2016 LAY REYES DO, Ot E78.00 PURE HYPERCHOLESTEROLEMIA, UNSPECIFIED 04/04/2016 LAY REYES DO, Ot F32.9 MAJOR DEPRESSIVE DISORDER, SINGLE EPISOD 04/04/2016 LAY REYES DO, Ot F41.9 ANXIETY DISORDER, UNSPECIFIED 04/04/2016 LAY REYES DO, Ot G47.33 OBSTRUCTIVE SLEEP APNEA (ADULT) (PEDIATR 04/04/2016 LAY REYES DO, Ot I12.9 HYPERTENSIVE CHRONIC KIDNEY DISEASE W ST 04/04/2016 LAY REYES DO, Ot I25.10 ATHSCL HEART DISEASE OF [place] CORONARY 04/04/2016 LAY REYES DO, Ot I25.2 OLD MYOCARDIAL INFARCTION 04/04/2016 LAY REYES DO, Ot I46.9 CARDIAC ARREST, CAUSE UNSPECIFIED 04/04/2016 LAY REYES DO, Ot I48.91 UNSPECIFIED ATRIAL FIBRILLATION 04/04/2016 LAY REYES DO, Ot I65.23 OCCLUSION AND STENOSIS OF [place] 04/04/2016 LAY REYES DO, Ot I73.9 PERIPHERAL VASCULAR DISEASE, UNSPECIFIED 04/04/2016 LAY REYES DO, Ot I87.2 VENOUS INSUFFICIENCY (CHRONIC) (PERIPHER 04/04/2016 LAY REYES DO, Ot I95.9 HYPOTENSION, UNSPECIFIED 04/04/2016 LAY REYES DO, Ot J44.9 CHRONIC OBSTRUCTIVE PULMONARY DISEASE, U 04/04/2016 LAY REYES DO, Ot J96.00 ACUTE RESPIRATORY FAILURE, UNSP W HYPOXI 04/04/2016 LAY REYES DO, Ot N18.4 CHRONIC KIDNEY DISEASE, STAGE 4 (SEVERE) 04/04/2016 LAY REYES DO, Ot R04.2 HEMOPTYSIS 04/04/2016 LAY REYES DO, Ot R04.89 HEMORRHAGE FROM OTHER SITES IN RESPIRATO 04/04/2016 LAY REYES DO, Ot R65.20 SEVERE SEPSIS WITHOUT SEPTIC SHOCK 04/04/2016 LAY REYES DO, Ot Z68.42 BODY MASS INDEX (BMI) 45.0-49.9, ADULT 04/04/2016 LAY REYES DO, Ot Z79.01 ENTHONE SOLDER STRIPPER (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 OF ANTICOAGULANT 04/04/2016 LAY REYES DO, Ot 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 04/04/2016 LAY REYES DO, Ot Z87.891 PERSONAL HISTORY OF NICOTINE DEPENDENCE 04/04/2016 LAY REYES DO Ot Z95.5 PRESENCE OF CORONARY ANGIOPLASTY IMPLANT 04/08/2016 LAY REYES DO, Ot R13.10 DYSPHAGIA, UNSPECIFIED 04/08/2016 LAY REYES DO, Ot R19.5 OTHER FECAL ABNORMALITIES 04/08/2016 LAY REYES DO, Ot Z01.818 ENCOUNTER FOR OTHER PREPROCEDURAL EXAMIN 04/09/2016 LAY REYES DO, Ot D64.9 ANEMIA, UNSPECIFIED 04/09/2016 LAY REYES DO, Ot D72.829 ELEVATED WHITE BLOOD CELL COUNT, UNSPECI 04/09/2016 LAY REYES DO, Ot E03.9 HYPOTHYROIDISM, UNSPECIFIED 04/09/2016 LAY REYES DO Ot E11.9 TYPE 2 DIABETES MELLITUS WITHOUT COMPLIC 04/09/2016 LAY REYES DO, Ot E66.01 MORBID (SEVERE) OBESITY DUE TO EXCESS CA 04/09/2016 LAY REYES DO, Ot E78.00 PURE HYPERCHOLESTEROLEMIA, UNSPECIFIED 04/09/2016 LAY REYES DO, Ot F32.9 MAJOR DEPRESSIVE DISORDER, SINGLE EPISOD 04/09/2016 LAY REYES DO, Ot F41.9 ANXIETY DISORDER, UNSPECIFIED 04/09/2016 LAY REYES DO, Ot G47.33 OBSTRUCTIVE SLEEP APNEA (ADULT) (PEDIATR 04/09/2016 LAY REYES DO, Ot I12.9 HYPERTENSIVE CHRONIC KIDNEY DISEASE W ST 04/09/2016 LAY REYES DO, Ot I25.10 ATHSCL HEART DISEASE OF [place] CORONARY 04/09/2016 LAY REYES DO, Ot I25.2 OLD MYOCARDIAL INFARCTION 04/09/2016 LYA REYES DO, Ot I46.9 CARDIAC ARREST, CAUSE UNSPECIFIED 04/09/2016 LAY REYES DO, Ot I48.91 UNSPECIFIED ATRIAL FIBRILLATION 04/09/2016 LAY REYES DO, Ot I65.23 OCCLUSION AND STENOSIS OF [place] 04/09/2016 LAY REYES DO, Ot I73.9 PERIPHERAL VASCULAR DISEASE, UNSPECIFIED 04/09/2016 LAY REYES DO, Ot I87.2 VENOUS INSUFFICIENCY (CHRONIC) (PERIPHER 04/09/2016 LAY REYES DO, Ot I95.9 HYPOTENSION, UNSPECIFIED 04/09/2016 LAY REYES DO, Ot J44.9 CHRONIC OBSTRUCTIVE PULMONARY DISEASE, U 04/09/2016 LAY REYES DO, Ot J96.00 ACUTE RESPIRATORY FAILURE, UNSP W HYPOXI 04/09/2016 LAY REYES DO, Ot N18.4 CHRONIC KIDNEY DISEASE, STAGE 4 (SEVERE) 04/09/2016 LAY REYES DO Ot R04.2 HEMOPTYSIS 04/09/2016 LAY REYES DO, Ot R04.89 HEMORRHAGE FROM OTHER SITES IN RESPIRATO 04/09/2016 LAY REYES DO Ot R65.20 SEVERE SEPSIS WITHOUT SEPTIC SHOCK 04/09/2016 LAY REYES DO, Ot Z68.42 BODY MASS INDEX (BMI) 45.0-49.9, ADULT 04/09/2016 LAY REYES DO, Ot Z79.01 GROUP HOME (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 OF ANTICOAGULANT 04/09/2016 LAY REYES DO Ot 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 04/09/2016 LAY REYES DO, Ot Z87.891 PERSONAL HISTORY OF NICOTINE DEPENDENCE 04/09/2016 LAY REYES DO Ot Z95.5 PRESENCE OF CORONARY ANGIOPLASTY IMPLANT 04/16/2016 SELVIN SOLER, PHIL Sánchez Ot M25.561 PAIN IN RIGHT KNEE 04/30/2016 LAY REYES DO, Ot D64.9 ANEMIA, UNSPECIFIED 04/30/2016 LAY REYES DO, Ot D72.829 ELEVATED WHITE BLOOD CELL COUNT, UNSPECI 04/30/2016 LAY REYES DO, Ot E03.9 HYPOTHYROIDISM, UNSPECIFIED 04/30/2016 LAY REYES DO Ot E11.9 TYPE 2 DIABETES MELLITUS WITHOUT COMPLIC 04/30/2016 LAY REYES DO Ot E66.01 MORBID (SEVERE) OBESITY DUE TO EXCESS CA 04/30/2016 LAY REYES DO Ot E78.00 PURE HYPERCHOLESTEROLEMIA, UNSPECIFIED 04/30/2016 LAY REYES DO Ot F32.9 MAJOR DEPRESSIVE DISORDER, SINGLE EPISOD 04/30/2016 LAY REYES DO, Ot F41.9 ANXIETY DISORDER, UNSPECIFIED 04/30/2016 LAY REYES DO Ot G47.33 OBSTRUCTIVE SLEEP APNEA (ADULT) (PEDIATR 04/30/2016 LAY REYES DO Ot I12.9 HYPERTENSIVE CHRONIC KIDNEY DISEASE W ST 04/30/2016 LAY REYES DO, Ot I25.10 ATHSCL HEART DISEASE OF [place] CORONARY 04/30/2016 LAY REYES DO Ot I25.2 OLD MYOCARDIAL INFARCTION 04/30/2016 LAY REYES DO Ot I46.9 CARDIAC ARREST, CAUSE UNSPECIFIED 04/30/2016 LAY REYES DO Ot I48.91 UNSPECIFIED ATRIAL FIBRILLATION 04/30/2016 LAY REYES DO Ot I65.23 OCCLUSION AND STENOSIS OF [place]AL [place] 04/30/2016 LAY REYES DO Ot I73.9 PERIPHERAL VASCULAR DISEASE, UNSPECIFIED 04/30/2016 LAY REYES DO Ot I87.2 VENOUS INSUFFICIENCY (CHRONIC) (PERIPHER 04/30/2016 LAY REYES DO, Ot I95.9 HYPOTENSION, UNSPECIFIED 04/30/2016 LAY REYES DO, Ot J44.9 CHRONIC OBSTRUCTIVE PULMONARY DISEASE, U 04/30/2016 LAY REYES DO, Ot J96.00 ACUTE RESPIRATORY FAILURE, UNSP W HYPOXI 04/30/2016 LAY REYES DO, Ot N18.4 CHRONIC KIDNEY DISEASE, STAGE 4 (SEVERE) 04/30/2016 LAY REYES DO Ot R04.2 HEMOPTYSIS 04/30/2016 LAY REYES DO, Ot R04.89 HEMORRHAGE FROM OTHER SITES IN RESPIRATO 04/30/2016 LAY REYES DO Ot R65.20 SEVERE SEPSIS WITHOUT SEPTIC SHOCK 04/30/2016 LAY REYES DO, Ot Z68.42 BODY MASS INDEX (BMI) 45.0-49.9, ADULT 04/30/2016 LAY REYES DO Ot Z79.01 GROUP HOME (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 OF ANTICOAGULANT 04/30/2016 LAY REYES DO, Ot Z79.4 GROUP HOME (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 OF INSULIN 04/30/2016 LAY REYES DO, Ot Z87.891 PERSONAL HISTORY OF NICOTINE DEPENDENCE 04/30/2016 LAY REYES DO Ot Z95.5 PRESENCE OF CORONARY ANGIOPLASTY IMPLANT 05/01/2016 LAY REYES DO, Ot D64.9 ANEMIA, UNSPECIFIED 05/01/2016 LAY REYES DO, Ot D72.829 ELEVATED WHITE BLOOD CELL COUNT, UNSPECI 05/01/2016 LAY REYES DO, Ot E03.9 HYPOTHYROIDISM, UNSPECIFIED 05/01/2016 LAY REYES DO Ot E11.9 TYPE 2 DIABETES MELLITUS WITHOUT COMPLIC 05/01/2016 LAY REYES DO, Ot E66.01 MORBID (SEVERE) OBESITY DUE TO EXCESS CA 05/01/2016 LAY REYES DO Ot E78.00 PURE HYPERCHOLESTEROLEMIA, UNSPECIFIED 05/01/2016 LAY REYES DO Ot F32.9 MAJOR DEPRESSIVE DISORDER, SINGLE EPISOD 05/01/2016 LAY REYES DO Ot F41.9 ANXIETY DISORDER, UNSPECIFIED 05/01/2016 LAY REYES DO Ot G47.33 OBSTRUCTIVE SLEEP APNEA (ADULT) (PEDIATR 05/01/2016 AMY DO, LAY M Ot I12.9 HYPERTENSIVE CHRONIC KIDNEY DISEASE W ST 05/01/2016 LAY REYES DO, Ot I25.10 ATHSCL HEART DISEASE OF [place] CORONARY 05/01/2016 LAY REYES DO, Ot I25.2 OLD MYOCARDIAL INFARCTION 05/01/2016 LAY REYES DO Ot I46.9 CARDIAC ARREST, CAUSE UNSPECIFIED 05/01/2016 LAY REYES DO Ot I48.91 UNSPECIFIED ATRIAL FIBRILLATION 05/01/2016 LAY REYES DO Ot I65.23 OCCLUSION AND STENOSIS OF [place]AL [place] 05/01/2016 LAY REYES DO, Ot I73.9 PERIPHERAL VASCULAR DISEASE, UNSPECIFIED 05/01/2016 LAY REYES DO Ot I87.2 VENOUS INSUFFICIENCY (CHRONIC) (PERIPHER 05/01/2016 LAY REYES DO Ot I95.9 HYPOTENSION, UNSPECIFIED 05/01/2016 LAY REYES DO, Ot J44.9 CHRONIC OBSTRUCTIVE PULMONARY DISEASE, U 05/01/2016 LAY REYES DO, Ot J96.00 ACUTE RESPIRATORY FAILURE, UNSP W HYPOXI 05/01/2016 LAY REYES DO Ot N18.4 CHRONIC KIDNEY DISEASE, STAGE 4 (SEVERE) 05/01/2016 LAY REYES DO Ot R04.2 HEMOPTYSIS 05/01/2016 LAY REYES DO Ot R04.89 HEMORRHAGE FROM OTHER SITES IN RESPIRATO 05/01/2016 LAY REYES DO Ot R65.20 SEVERE SEPSIS WITHOUT SEPTIC SHOCK 05/01/2016 LAY REYES DO Ot Z68.42 BODY MASS INDEX (BMI) 45.0-49.9, ADULT 05/01/2016 LAY REYES DO Ot Z79.01 GROUP HOME (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 OF ANTICOAGULANT 05/01/2016 LAY REYES DO Ot 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 05/01/2016 LAY REYES DO Ot Z87.891 PERSONAL HISTORY OF NICOTINE DEPENDENCE 05/01/2016 LAY REYES DO Ot Z95.5 PRESENCE OF CORONARY ANGIOPLASTY IMPLANT 05/24/2016 MANUEL CALZADA APRN Ot M47.816 SPONDYLOSIS W/O MYELOPATHY OR RADICULOPA 06/03/2016 ARMSTRONG, PETER J HEAD OF [employer]SH[employer] Ot E11.9 TYPE 2 DIABETES MELLITUS WITHOUT COMPLIC 06/03/2016 SARAH ARMSTRONG HEAD OF [employer]SH[employer] Ot I10 ESSENTIAL (PRIMARY) HYPERTENSION 06/03/2016 SARAH ARMSTRONG HEAD OF [employer] Ot I25.10 ATHSCL HEART DISEASE OF [place] CORONARY 06/03/2016 SARAH ARMSTRONG HEAD OF [employer] Ot I48.2 CHRONIC ATRIAL FIBRILLATION 06/03/2016 SARAH ARMSTRONG APRN Ot R04.0 EPISTAXIS 06/03/2016 SARAH ARMSTRONG HEAD OF [employer] Ot Z79.01 GROUP HOME (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 OF ANTICOAGULANT 06/03/2016 SARAH ARMSTRONG HEAD OF [employer] Ot Z79.4 GROUP HOME (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 OF INSULIN 06/03/2016 SARAH ARMSTRONG APRN Ot Z79.899 OTHER GROUP HOME (CURRENT) DRUG THERAPY 06/14/2016 MANUEL CALZADA HEAD [employer] Ot M47.816 SPONDYLOSIS W/O MYELOPATHY OR RADICULOPA Procedures Code Description Performed By Performed On 06.4 COMPLETE THYROIDECTOMY 05/09/2009 00.40 PROCEDURE ON SINGLE VESSEL 09/30/2012 00.45 INSERTION OF ONE VASCULAR STENT 09/30/2012 39.50 ANGIOPLASTY OF OTHER NON-CORONARY VESSEL 09/30/2012 88.42 CONTRAST AORTOGRAM 09/30/2012 88.45 CONTRAST RENAL ARTERIOGR 09/30/2012 88.47 CONTR ABD ARTERIOGRM NEC 09/30/2012 00.42 PROCEDURE ON THREE VESSELS 10/02/2012 00.47 INSERTION OF THREE VASCULAR STENTS 10/02/2012 39.50 ANGIOPLASTY OF OTHER NON-CORONARY VESSEL 10/02/2012 88.45 CONTRAST RENAL ARTERIOGR 10/02/2012 88.47 CONTR ABD ARTERIOGRM NEC 10/02/2012 Results Test Result Range Complete blood count (CBC) with automated white blood cell (WBC) differential - 01/31/16 18:03 Blood leukocytes automated count (number/volume) 15.6 10*3/ uL 4.3-11.0 Blood erythrocytes automated count (number/volume) 3.57 10*6 /uL 4.35-5.85 Venous blood hemoglobin measurement (mass/volume) 9.6 g/dL 11.5-16.0 Blood hematocrit (volume fraction) 32 % 35-52 Automated erythrocyte mean corpuscular volume 89 [foz_us] 80-99 Automated erythrocyte mean corpuscular hemoglobin (mass per erythrocyte) 27 pg 25-34 Automated erythrocyte mean corpuscular hemoglobin concentration measurement ( mass/volume) 30 g/dL 32-36 Automated erythrocyte distribution width ratio 18.2 % 10.0-14.5 Automated blood platelet count (count/volume) 330 10*3/uL 130-400 Automated blood platelet mean volume measurement 9.4 [foz_us ] 7.4-10.4 Automated blood neutrophils/100 leukocytes 47 % 42-75 Automated blood lymphocytes/100 leukocytes 41 % 12-44 Blood monocytes/100 leukocytes 10 % 0-12 Automated blood eosinophils/100 leukocytes 3 % 0-10 Automated blood basophils/100 leukocytes 1 % 0-10 Blood neutrophils automated count (number/volume) 7.3 10*3 1.8-7.8 Blood lymphocytes automated count (number/volume) 6.3 10*3 1.0-4.0 Blood monocytes automated count (number/volume) 1.5 10*3 0.0-1.0 Automated eosinophil count 0.4 10*3/uL 0.0-0.3 Automated blood basophil count (count/volume) 0.1 10*3/uL 0.0-0.1 Blood manual differential performed detection - 01/31/16 18:03 Blood monocytes/100 leukocytes 6 % NRG Manual blood segmented neutrophils/100 leukocytes 33 % NRG Blood band neutrophils/100 leukocytes 1 % NRG Manual blood lymphocytes/100 leukocytes 56 % NRG Manual eosinophils/100 leukocytes in nose 2 % NRG Manual blood basophils/100 leukocytes 2 % NRG Blood anisocytosis detection by light microscopy SLIGHT NRG Manual blood nucleated erythrocytes/100 leukocytes ratio 1 NRG Blood microcytes detection by light microscopy SLIGHT NRG PT panel in platelet poor plasma by coagulation assay - 01/31/16 18:03 Prothrombin time (PT) in platelet poor plasma by coagulation assay 25.4 s 12.2-14.7 INR in platelet poor plasma or blood by coagulation assay 2.3 0.8-1.4 PT panel in platelet poor plasma by coagulation assay - 03/26/16 08:40 Prothrombin time (PT) in platelet poor plasma by coagulation assay 19.0 s 12.2-14.7 INR in platelet poor plasma or blood by coagulation assay 1.6 0.8-1.4 Activated partial thromboplastin time (aPTT) in platelet poor plasma bycoagulation assay - 03/26/16 08:40 Activated partial thromboplastin time (aPTT) in platelet poor plasma bycoagulation assay 40 s 24-35 Comprehensive metabolic panel - 03/26/16 08:40 Serum or plasma sodium measurement (moles/volume) 143 mmol/ L 135-145 Serum or plasma potassium measurement (moles/volume) 4.3 mmol/L 3.6-5.0 Serum or plasma chloride measurement (moles/volume) 105 mmol /L 98-107 Carbon dioxide 24 mmol/L 21-32 Serum or plasma anion gap determination (moles/volume) 14 mmol/L 5-14 Serum or plasma urea nitrogen measurement (mass/volume) 44 mg/dL 7-18 Serum or plasma creatinine measurement (mass/volume) 2.03 mg /dL 0.60-1.30 Serum or plasma urea nitrogen/creatinine mass ratio 22 NRG Serum or plasma creatinine measurement with calculation of estimated glomerular filtration rate 24 NRG Serum or plasma glucose measurement (mass/volume) 105 mg/dL 70-105 Serum or plasma calcium measurement (mass/volume) 9.0 mg/dL 8.5-10.1 Serum or plasma total bilirubin measurement (mass/volume) 0.7 mg/dL 0.1-1.0 Serum or plasma alkaline phosphatase measurement (enzymatic activity/volume) 73 U/L 40-136 Serum or plasma aspartate aminotransferase measurement (enzymatic activity/ volume) 22 U/L 5-34 Serum or plasma alanine aminotransferase measurement (enzymatic activity/volume ) 10 U/L 0-55 Serum or plasma protein measurement (mass/volume) 7.2 g/dL 6.4-8.2 Serum or plasma albumin measurement (mass/volume) 3.7 g/dL 3.2-4.5 Lipid 1996 panel - 03/26/16 08:40 Serum or plasma triglyceride measurement (mass/volume) 109 mg/dL <150 Serum or plasma cholesterol measurement (mass/volume) 118 mg /dL < 200 Serum or plasma cholesterol in HDL measurement (mass/volume) 38 mg/dL 40-60 Cholesterol in LDL [mass/volume] in serum or plasma by direct assay 62 mg/dL 1-129 Serum or plasma cholesterol in VLDL measurement (mass/volume) 22 mg/dL 5-40 Methicillin resistant Staphylococcus aureus (MRSA) screening culture - 08:40 Methicillin resistant Staphylococcus aureus (MRSA) screening culture NEG NRG Automated blood complete blood count (hemogram) panel - 03/26/16 09:12 Blood leukocytes automated count (number/volume) 16.0 10*3/ uL 4.3-11.0 Blood erythrocytes automated count (number/volume) 2.81 10*6 /uL 4.35-5.85 Venous blood hemoglobin measurement (mass/volume) 6.6 g/dL 11.5-16.0 Blood hematocrit (volume fraction) 24 % 35-52 Automated erythrocyte mean corpuscular volume 85 [foz_us] 80-99 Automated erythrocyte mean corpuscular hemoglobin (mass per erythrocyte) 23 pg 25-34 Automated erythrocyte mean corpuscular hemoglobin concentration measurement ( mass/volume) 28 g/dL 32-36 Automated erythrocyte distribution width ratio 21.4 % 10.0-14.5 Automated blood platelet count (count/volume) 363 10*3/uL 130-400 Automated blood platelet mean volume measurement 9.1 [foz_us ] 7.4-10.4 RED CELLS LEUKO REDUCED AS1 - 03/26/16 09:12 RED CELLS LEUKO REDUCED AS1 TRANSFUSED [id number] NRG Blood type T Indirect antibody screen panel - 03/26/16 09:12 ABO+Rh group ON NRG Transfusion band number [id number] NRG Blood group antibody screen NEGATIVE NRG RED CELLS LEUKO REDUCED AS1 - 03/26/16 09:12 RED CELLS LEUKO REDUCED AS1 TRANSFUSED [id number] NRG Blood type T Indirect antibody screen panel - 03/26/16 09:12 ABO+Rh group ON NRG Transfusion band number [id number] NRG Blood group antibody screen NEGATIVE NRG Capillary blood glucose measurement by glucometer (mass/volume) - 03/26/16 12: 00 Capillary blood glucose measurement by glucometer (mass/volume) 110 mg/dL 70-110 Capillary blood glucose measurement by glucometer (mass/volume) - 03/26/16 16: 57 Capillary blood glucose measurement by glucometer (mass/volume) 174 mg/dL 70-110 Capillary blood glucose measurement by glucometer (mass/volume) - 03/26/16 20: 59 Capillary blood glucose measurement by glucometer (mass/volume) 193 mg/dL 70-110 Automated blood complete blood count (hemogram) panel - 03/27/16 04:13 Blood leukocytes automated count (number/volume) 14.6 10*3/ uL 4.3-11.0 Blood erythrocytes automated count (number/volume) 3.33 10*6 /uL 4.35-5.85 Venous blood hemoglobin measurement (mass/volume) 8.0 g/dL 11.5-16.0 Blood hematocrit (volume fraction) 28 % 35-52 Automated erythrocyte mean corpuscular volume 83 [foz_us] 80-99 Automated erythrocyte mean corpuscular hemoglobin (mass per erythrocyte) 24 pg 25-34 Automated erythrocyte mean corpuscular hemoglobin concentration measurement ( mass/volume) 29 g/dL 32-36 Automated erythrocyte distribution width ratio 21.1 % 10.0-14.5 Automated blood platelet count (count/volume) 300 10*3/uL 130-400 Automated blood platelet mean volume measurement 9.9 [foz_us ] 7.4-10.4 PT panel in platelet poor plasma by coagulation assay - 03/27/16 04:13 Prothrombin time (PT) in platelet poor plasma by coagulation assay 17.6 s 12.2-14.7 INR in platelet poor plasma or blood by coagulation assay 1.5 0.8-1.4 Comprehensive metabolic panel - 03/27/16 04:13 Serum or plasma sodium measurement (moles/volume) 140 mmol/ L 135-145 Serum or plasma potassium measurement (moles/volume) 4.1 mmol/L 3.6-5.0 Serum or plasma chloride measurement (moles/volume) 106 mmol /L 98-107 Carbon dioxide 25 mmol/L 21-32 Serum or plasma anion gap determination (moles/volume) 9 mmol/L 5-14 Serum or plasma urea nitrogen measurement (mass/volume) 42 mg/dL 7-18 Serum or plasma creatinine measurement (mass/volume) 1.95 mg /dL 0.60-1.30 Serum or plasma urea nitrogen/creatinine mass ratio 22 NRG Serum or plasma creatinine measurement with calculation of estimated glomerular filtration rate 25 NRG Serum or plasma glucose measurement (mass/volume) 120 mg/dL 70-105 Serum or plasma calcium measurement (mass/volume) 8.3 mg/dL 8.5-10.1 Serum or plasma total bilirubin measurement (mass/volume) 0.8 mg/dL 0.1-1.0 Serum or plasma alkaline phosphatase measurement (enzymatic activity/volume) 71 U/L 40-136 Serum or plasma aspartate aminotransferase measurement (enzymatic activity/ volume) 21 U/L 5-34 Serum or plasma alanine aminotransferase measurement (enzymatic activity/volume ) 12 U/L 0-55 Serum or plasma protein measurement (mass/volume) 6.6 g/dL 6.4-8.2 Serum or plasma albumin measurement (mass/volume) 3.4 g/dL 3.2-4.5 Capillary blood glucose measurement by glucometer (mass/volume) - 03/27/16 11: 28 Capillary blood glucose measurement by glucometer (mass/volume) 145 mg/dL 70-110 Capillary blood glucose measurement by glucometer (mass/volume) - 03/27/16 16: 16 Capillary blood glucose measurement by glucometer (mass/volume) 105 mg/dL 70-110 Capillary blood glucose measurement by glucometer (mass/volume) - 03/27/16 20: 44 Capillary blood glucose measurement by glucometer (mass/volume) 108 mg/dL 70-110 Automated blood complete blood count (hemogram) panel - 03/28/16 04:19 Blood leukocytes automated count (number/volume) 18.1 10*3/ uL 4.3-11.0 Blood erythrocytes automated count (number/volume) 3.81 10*6 /uL 4.35-5.85 Venous blood hemoglobin measurement (mass/volume) 9.7 g/dL 11.5-16.0 Blood hematocrit (volume fraction) 32 % 35-52 Automated erythrocyte mean corpuscular volume 84 [foz_us] 80-99 Automated erythrocyte mean corpuscular hemoglobin (mass per erythrocyte) 25 pg 25-34 Automated erythrocyte mean corpuscular hemoglobin concentration measurement ( mass/volume) 30 g/dL 32-36 Automated erythrocyte distribution width ratio 19.3 % 10.0-14.5 Automated blood platelet count (count/volume) 261 10*3/uL 130-400 Automated blood platelet mean volume measurement 10.1 [foz_ us] 7.4-10.4 PT panel in platelet poor plasma by coagulation assay - 03/28/16 04:19 Prothrombin time (PT) in platelet poor plasma by coagulation assay 16.1 s 12.2-14.7 INR in platelet poor plasma or blood by coagulation assay 1.3 0.8-1.4 Comprehensive metabolic panel - 03/28/16 04:19 Serum or plasma sodium measurement (moles/volume) 140 mmol/ L 135-145 Serum or plasma potassium measurement (moles/volume) 3.9 mmol/L 3.6-5.0 Serum or plasma chloride measurement (moles/volume) 104 mmol /L 98-107 Carbon dioxide 25 mmol/L 21-32 Serum or plasma anion gap determination (moles/volume) 11 mmol/L 5-14 Serum or plasma urea nitrogen measurement (mass/volume) 43 mg/dL 7-18 Serum or plasma creatinine measurement (mass/volume) 1.83 mg /dL 0.60-1.30 Serum or plasma urea nitrogen/creatinine mass ratio 23 NRG Serum or plasma creatinine measurement with calculation of estimated glomerular filtration rate 27 NRG Serum or plasma glucose measurement (mass/volume) 87 mg/dL 70-105 Serum or plasma calcium measurement (mass/volume) 8.4 mg/dL 8.5-10.1 Serum or plasma total bilirubin measurement (mass/volume) 1.2 mg/dL 0.1-1.0 Serum or plasma alkaline phosphatase measurement (enzymatic activity/volume) 69 U/L 40-136 Serum or plasma aspartate aminotransferase measurement (enzymatic activity/ volume) 25 U/L 5-34 Serum or plasma alanine aminotransferase measurement (enzymatic activity/volume ) 12 U/L 0-55 Serum or plasma protein measurement (mass/volume) 6.6 g/dL 6.4-8.2 Serum or plasma albumin measurement (mass/volume) 3.3 g/dL 3.2-4.5 Serum or plasma C reactive protein measurement (mass/volume) - 03/28/16 04:19 Serum or plasma C reactive protein measurement (mass/volume) 4.15 mg/dL 0.00-0.50 Erythrocyte sedimentation rate by westergren method - 03/28/16 04:19 Erythrocyte sedimentation rate by westergren method 45 mm 0-30 Capillary blood glucose measurement by glucometer (mass/volume) - 03/28/16 11: 23 Capillary blood glucose measurement by glucometer (mass/volume) 292 mg/dL 70-110 Stool occult blood screen - 03/28/16 15:57 Stool gastrointestinal hemoglobin detection NEGATIVE NEGATIVE Capillary blood glucose measurement by glucometer (mass/volume) - 03/28/16 16: 05 Capillary blood glucose measurement by glucometer (mass/volume) 137 mg/dL 70-110 Capillary blood glucose measurement by glucometer (mass/volume) - 03/28/16 20: 36 Capillary blood glucose measurement by glucometer (mass/volume) 143 mg/dL 70-110 Automated blood complete blood count (hemogram) panel - 03/29/16 05:19 Blood leukocytes automated count (number/volume) 17.0 10*3/ uL 4.3-11.0 Blood erythrocytes automated count (number/volume) 4.14 10*6 /uL 4.35-5.85 Venous blood hemoglobin measurement (mass/volume) 11.1 g/dL 11.5-16.0 Blood hematocrit (volume fraction) 35 % 35-52 Automated erythrocyte mean corpuscular volume 85 [foz_us] 80-99 Automated erythrocyte mean corpuscular hemoglobin (mass per erythrocyte) 27 pg 25-34 Automated erythrocyte mean corpuscular hemoglobin concentration measurement ( mass/volume) 31 g/dL 32-36 Automated erythrocyte distribution width ratio 19.3 % 10.0-14.5 Automated blood platelet count (count/volume) 245 10*3/uL 130-400 Automated blood platelet mean volume measurement 10.3 [foz_ us] 7.4-10.4 PT panel in platelet poor plasma by coagulation assay - 03/29/16 05:19 Prothrombin time (PT) in platelet poor plasma by coagulation assay 14.7 s 12.2-14.7 INR in platelet poor plasma or blood by coagulation assay 1.2 0.8-1.4 Whole blood basic metabolic panel - 03/29/16 05:19 Serum or plasma sodium measurement (moles/volume) 141 mmol/ L 135-145 Serum or plasma potassium measurement (moles/volume) 3.5 mmol/L 3.6-5.0 Serum or plasma chloride measurement (moles/volume) 104 mmol /L 98-107 Carbon dioxide 24 mmol/L 21-32 Serum or plasma anion gap determination (moles/volume) 13 mmol/L 5-14 Serum or plasma urea nitrogen measurement (mass/volume) 47 mg/dL 7-18 Serum or plasma creatinine measurement (mass/volume) 1.95 mg /dL 0.60-1.30 Serum or plasma urea nitrogen/creatinine mass ratio 24 NRG Serum or plasma creatinine measurement with calculation of estimated glomerular filtration rate 25 NRG Serum or plasma glucose measurement (mass/volume) 96 mg/dL 70-105 Serum or plasma calcium measurement (mass/volume) 8.5 mg/dL 8.5-10.1 Capillary blood glucose measurement by glucometer (mass/volume) - 03/29/16 05: 29 Capillary blood glucose measurement by glucometer (mass/volume) 105 mg/dL 70-110 Capillary blood glucose measurement by glucometer (mass/volume) - 03/29/16 12: 05 Capillary blood glucose measurement by glucometer (mass/volume) 243 mg/dL 70-110 Capillary blood glucose measurement by glucometer (mass/volume) - 04/03/16 07: 29 Capillary blood glucose measurement by glucometer (mass/volume) 54 mg/dL 70-110 Capillary blood glucose measurement by glucometer (mass/volume) - 04/03/16 07: 48 Capillary blood glucose measurement by glucometer (mass/volume) 146 mg/dL 70-110 Sputum Gram stain - 04/03/16 08:23 Bacteria identification in bronchial specimen by aerobe culture - 04/03/16 08: 23 Bacteria identification in bronchial specimen by aerobe culture NORMAL NRG Fungus culture - 04/03/16 08:23 FUNGUS REPORT NO FUNGUS GROWTH OBSERVED NRG Mycobacterium species detection by organism specific culture - 04/03/16 08:23 DATE/TIME MICROSCOPIC 04/09/16 18:10 NRG MICROSCOPIC NO ACID-FAST BACILLI FOUND NRG AFB CULTURE NO MYCOBACTERIA RECOVERED AFTER 6 WEEKS NRG DATE FINAL AFB CULTURE 05/16/16 17:00 NRG Complete blood count (CBC) with automated white blood cell (WBC) differential - 04/03/16 08:25 Blood leukocytes automated count (number/volume) 16.3 10*3/ uL 4.3-11.0 Blood erythrocytes automated count (number/volume) 4.72 10*6 /uL 4.35-5.85 Venous blood hemoglobin measurement (mass/volume) 12.7 g/dL 11.5-16.0 Blood hematocrit (volume fraction) 41 % 35-52 Automated erythrocyte mean corpuscular volume 88 [foz_us] 80-99 Automated erythrocyte mean corpuscular hemoglobin (mass per erythrocyte) 27 pg 25-34 Automated erythrocyte mean corpuscular hemoglobin concentration measurement ( mass/volume) 31 g/dL 32-36 Automated erythrocyte distribution width ratio 20.7 % 10.0-14.5 Automated blood platelet count (count/volume) 142 10*3/uL 130-400 Automated blood platelet mean volume measurement 10.4 [foz_ us] 7.4-10.4 Automated blood neutrophils/100 leukocytes 68 % 42-75 Automated blood lymphocytes/100 leukocytes 21 % 12-44 Blood monocytes/100 leukocytes 7 % 0-12 Automated blood eosinophils/100 leukocytes 3 % 0-10 Automated blood basophils/100 leukocytes 0 % 0-10 Blood neutrophils automated count (number/volume) 10.0 10*3 1.8-7.8 Blood lymphocytes automated count (number/volume) 3.1 10*3 1.0-4.0 Blood monocytes automated count (number/volume) 1.1 10*3 0.0-1.0 Automated eosinophil count 0.4 10*3/uL 0.0-0.3 Automated blood basophil count (count/volume) 0.0 10*3/uL 0.0-0.1 Blood blood smear finding identification by light microscopy 68 NRG Blood manual differential performed detection - 04/03/16 08:25 Blood monocytes/100 leukocytes 4 % NRG Manual blood segmented neutrophils/100 leukocytes 5 % NRG Blood band neutrophils/100 leukocytes 20 % NRG Manual blood lymphocytes/100 leukocytes 3 % NRG Manual eosinophils/100 leukocytes in nose 0 % NRG Blood polychromasia detection by light microscopy SLIGHT NRG Blood anisocytosis detection by light microscopy MODERATE NRG Bacterial blood culture - 04/03/16 08:25 Bacterial blood culture NG NRG Serum classic neutrophil cytoplasmic antibody assay (units/volume) - 04/03/16 08:25 Antineutrophil cytoplasmic antibody (ANCA) assay <1:20 <1:20 Antineutrophil cytoplasmic antibody (ANCA) pattern Not Indicated NRG Blood lactic acid measurement (moles/volume) - 04/03/16 09:09 Blood lactic acid measurement (moles/volume) 1.1 mmol/L 0.5-2.0 Comprehensive metabolic panel - 04/03/16 09:09 Serum or plasma sodium measurement (moles/volume) 142 mmol/ L 135-145 Serum or plasma potassium measurement (moles/volume) 4.1 mmol/L 3.6-5.0 Serum or plasma chloride measurement (moles/volume) 108 mmol /L 98-107 Carbon dioxide 24 mmol/L 21-32 Serum or plasma anion gap determination (moles/volume) 10 mmol/L 5-14 Serum or plasma urea nitrogen measurement (mass/volume) 36 mg/dL 7-18 Serum or plasma creatinine measurement (mass/volume) 1.42 mg /dL 0.60-1.30 Serum or plasma urea nitrogen/creatinine mass ratio 25 NRG Serum or plasma creatinine measurement with calculation of estimated glomerular filtration rate 37 NRG Serum or plasma glucose measurement (mass/volume) 102 mg/dL 70-105 Serum or plasma calcium measurement (mass/volume) 8.1 mg/dL 8.5-10.1 Serum or plasma total bilirubin measurement (mass/volume) 0.8 mg/dL 0.1-1.0 Serum or plasma alkaline phosphatase measurement (enzymatic activity/volume) 67 U/L 40-136 Serum or plasma aspartate aminotransferase measurement (enzymatic activity/ volume) 28 U/L 5-34 Serum or plasma alanine aminotransferase measurement (enzymatic activity/volume ) 21 U/L 0-55 Serum or plasma protein measurement (mass/volume) 6.5 g/dL 6.4-8.2 Serum or plasma albumin measurement (mass/volume) 3.2 g/dL 3.2-4.5 Magnesium - 04/03/16 09:09 Magnesium 2.1 mg/dL 1.8-2.4 Serum or plasma lithium measurement (moles/volume) - 04/03/16 09:09 BNP level 321.9 pg/mL <100.0 PT panel in platelet poor plasma by coagulation assay - 04/03/16 09:09 Prothrombin time (PT) in platelet poor plasma by coagulation assay 13.5 s 12.2-14.7 INR in platelet poor plasma or blood by coagulation assay 1.1 0.8-1.4 Activated partial thromboplastin time (aPTT) in platelet poor plasma bycoagulation assay - 04/03/16 09:09 Activated partial thromboplastin time (aPTT) in platelet poor plasma bycoagulation assay 29 s 24-35 Bacterial blood culture - 04/03/16 09:09 Bacterial blood culture NG NRG Capillary blood glucose measurement by glucometer (mass/volume) - 04/03/16 09: 12 Capillary blood glucose measurement by glucometer (mass/volume) 90 mg/dL 70-110 Bacterial blood culture - 04/03/16 09:20 Bacterial blood culture NG NRG Serum or plasma creatine kinase measurement (enzymatic activity/volume) - 04/03 11:28 Serum or plasma creatine kinase measurement (enzymatic activity/volume) 139 U/L 29-168 Blood lactic acid measurement (moles/volume) - 04/03/16 11:28 Blood lactic acid measurement (moles/volume) 1.0 mmol/L 0.5-2.0 Erythrocyte sedimentation rate by westergren method - 04/03/16 11:28 Erythrocyte sedimentation rate by westergren method 20 mm 0-30 Total hemolytic (CH50) complement assay - 04/03/16 11:28 Total hemolytic (CH50) complement assay 518 % 400-700 Serum or plasma complement C3 measurement (mass/volume) - 04/03/16 11:28 Complement C3 nephritic [mass/volume] in serum or plasma 120 % 73-183 Complement C4 [mass/volume] in serum or plasma - 04/03/16 11:28 Complement C4 [mass/volume] in serum or plasma 31 % 15-59 Capillary blood glucose measurement by glucometer (mass/volume) - 04/03/16 12: 51 Capillary blood glucose measurement by glucometer (mass/volume) 132 mg/dL 70-110 Complete blood count (CBC) with automated white blood cell (WBC) differential - 05/31/16 10:55 Blood leukocytes automated count (number/volume) 14.0 10*3/ uL 4.3-11.0 Blood erythrocytes automated count (number/volume) 4.36 10*6 /uL 4.35-5.85 Venous blood hemoglobin measurement (mass/volume) 11.6 g/dL 11.5-16.0 Blood hematocrit (volume fraction) 38 % 35-52 Automated erythrocyte mean corpuscular volume 86 [foz_us] 80-99 Automated erythrocyte mean corpuscular hemoglobin (mass per erythrocyte) 27 pg 25-34 Automated erythrocyte mean corpuscular hemoglobin concentration measurement ( mass/volume) 31 g/dL 32-36 Automated erythrocyte distribution width ratio 20.5 % 10.0-14.5 Automated blood platelet count (count/volume) 289 10*3/uL 130-400 Automated blood platelet mean volume measurement 10.2 [foz_ us] 7.4-10.4 Automated blood neutrophils/100 leukocytes 46 % 42-75 Automated blood lymphocytes/100 leukocytes 44 % 12-44 Blood monocytes/100 leukocytes 6 % 0-12 Automated blood eosinophils/100 leukocytes 3 % 0-10 Automated blood basophils/100 leukocytes 1 % 0-10 Blood neutrophils automated count (number/volume) 6.5 10*3 1.8-7.8 Blood lymphocytes automated count (number/volume) 6.2 10*3 1.0-4.0 Blood monocytes automated count (number/volume) 0.9 10*3 0.0-1.0 Automated eosinophil count 0.4 10*3/uL 0.0-0.3 Automated blood basophil count (count/volume) 0.1 10*3/uL 0.0-0.1 PT panel in platelet poor plasma by coagulation assay - 05/31/16 10:55 Prothrombin time (PT) in platelet poor plasma by coagulation assay 32.5 s 12.2-14.7 INR in platelet poor plasma or blood by coagulation assay 3.2 0.8-1.4 Blood manual differential performed detection - 05/31/16 10:55 Blood monocytes/100 leukocytes 5 % NRG Manual blood segmented neutrophils/100 leukocytes 38 % NRG Blood band neutrophils/100 leukocytes 2 % NRG Manual blood lymphocytes/100 leukocytes 50 % NRG Manual eosinophils/100 leukocytes in nose 3 % NRG Manual blood basophils/100 leukocytes 1 % NRG Blood lymphocytes variant/100 leukocytes 1 % NRG Blood anisocytosis detection by light microscopy MODERATE NRG Encounters ACCT No. Visit Date/Time Discharge Status Pt. Type Provider Facility Loc./Unit Complaint [id number] 05/31/2016 10:26:00 2016 12:45:00 DIS Outpatient SARAH ARMSTRONG APRN [facility] ER NOSE BLEED [id number] 04/03/2016 06:34:00 2016 15:00:00 DIS Outpatient LAY REYES DO [facility] ENDO DYSPNEA [id number] 04/02/2016 10:00:00 2016 10:14:00 DIS Outpatient LAY REYES DO [facility] PREOP DYSPNEA [id number] 03/27/2016 09:15:00 2016 14:00:00 DIS Inpatient DAVID SOLER FACC, KEARA DEWITT CCDS [facility] 4TH ANGINA,SOB,CAD [id number] 03/03/2016 13:42:00 2016 16:06:00 DIS Emergency JEREL KELLEY [facility] ER R KNEE INJ/PAIN [id number] 01/31/2016 17:32:00 2015 19:17:00 DIS Emergency ARMSTRONGSARAH [employer] [facility] ER NOSE BLEED [id number] 07/26/2015 15:35:00 2015 16:55:00 DIS Inpatient PHIL MONTALVO MD [facility] CSD CHEST PAIN [id number] 05/08/2015 08:03:00 2015 00:01:00 DIS Outpatient SANAM BROWN [employer] [facility] CARD PALP [id number] 06/03/2015 08:16:00 2015 10:04:00 DIS Emergency ERIN COOK MD [facility] ER VAG SWELLING/IRRITATION [id number] 01/18/2015 11:45:00 2014 23:59:59 CLS Outpatient LAY REYES DO [facility] RT DYSPNEA,SLEEP APNEA [id number] 12/27/2014 14:08:00 2014 23:59:59 CLS Outpatient PHIL MONTALVO MD [facility] RAD LUNG MASS [id number] 12/26/2014 12:37:00 2014 23:59:59 CLS Outpatient MANUEL CALZADA APRN [facility] CARD SOB [id number] 12/08/2014 12:55:00 2014 23:59:59 CLS Outpatient SANAM BROWNP [facility] RAD LEG PAIN,WEAKNESS [id number] 11/28/2014 14:27:00 2014 23:59:59 CLS Outpatient SANAM BROWN [employer] [facility] CARD AORTIC VALVE SCLEROSIS, CAD , CAROTID ARTERIAL DISE [id number] 10/22/2014 14:20:00 2014 15:28:00 DIS Emergency JEREL KELLEY [facility] ER L FOOT INJ [id number] 10/08/2013 09:41:00 2013 23:59:59 CLS Outpatient BLACK PAEZ [employer] [facility] RAD L WRIST HEALED RADIAL STYLOID FRACTURE [id number] 08/04/2013 11:08:00 2013 23:59:59 CLS Outpatient CLARA SAVAGE MD [facility] RAD FALL L WRIST [id number] 12/09/2012 14:08:00 2012 23:59:59 CLS Outpatient CLARA SAVAGE MD [facility] LAB RECURRENT BOILS [id number] 09/29/2012 13:27:00 2012 12:15:00 DIS Inpatient CLARA SAVAGE MD [facility] CSD ISCHEMIC COLON, ABD PAIN [id number] 09/25/2012 07:23:00 2012 23:59:59 CLS Outpatient CARROLL DALE MD [facility] SDC INTESTINAL ANGINA [id number] 09/24/2012 07:12:00 2012 23:59:59 CLS Outpatient CARROLL DALE MD [facility] PREOP INTESTINAL ANGINA [id number] 07/02/2016 15:43:00 PEN Preadmit FRANCK SALINAS APRN [facility] RAD R91.1 LUNG NODULE,J43.8 COPD W/EMPHYSEMA [id number] 07/01/2016 11:19:00 ACT Outpatient LAY REYES DO [facility] RAD COPD,CAD [id number] 05/23/2016 08:52:00 ACT Outpatient MANUEL CALZADA [employer] [facility] RAD LOW BACK PAIN [id number] 03/18/2016 08:22:00 ACT Outpatient PHIL MONTALVO MD [facility] RAD RT KNEE PAIN [id number] 02/05/2016 09:11:00 ACT Outpatient FRANCK SALINAS [employer] [facility] RAD COPD HYPOXEMIA [id number] 01/30/2016 08:24:00 ACT Outpatient SANAM BROWN [employer] [facility] CARD CAD,CAROTID ARTERIAL DISEASE,PALPITATIONS [id number] 08/16/2015 13:44:00 ACT Outpatient BAIMASANAM [facility] RAD CAD,CLAUDICATION [id number] 07/13/2015 13:00:00 PEN Preadmit MARYLIOSANAM [facility] CARD PALP [id number] 02/07/2015 07:34:00 ACT Outpatient FRANCK SALINAS APRN [facility] RAD LYMPHANODE ENLARGEMENT,COPD,SLEEP APNEA,DYSPNEA [id number] 10/22/2014 14:20:00 Document Registration [id number] 10/22/2014 14:20:00 Document Registration [id number] 05/03/2014 06:45:00 Document Registration [id number] 04/21/2014 07:46:00 Document Registration [id number] 05/08/2012 15:54:00 Document Registration [id number] 05/07/2012 11:48:00 Document Registration [id number] 05/06/2012 13:29:00 Document Registration [id number] 04/29/2012 09:22:00 Document Registration [id number] 01/31/2012 04:05:00 Document Registration [id number] 12/09/2011 10:08:00 Document Registration [id number] 06/24/2011 16:17:00 Document Registration [id number] 06/23/2011 14:33:00 Document Registration [id number] 06/10/2011 11:24:00 Document Registration [id number] 06/07/2011 08:09:00 Document Registration [id number] 05/28/2011 03:49:00 Document Registration [id number] 05/23/2011 07:43:00 Document Registration [id number] 04/15/2011 00:00:00 Document Registration [id number] 01/14/2011 08:32:00 Document Registration [id number] 12/12/2010 09:41:00 Document Registration [id number] 11/26/2010 14:08:00 Document Registration [id number] 10/16/2010 07:55:00 Document Registration [id number] 10/05/2010 08:57:00 Document Registration [id number] 10/04/2010 07:45:00 Document Registration [id number] 09/29/2010 13:28:00 Document Registration [id number] 09/26/2010 08:03:00 Document Registration [id number] 09/07/2010 08:47:00 Document Registration [id number] 08/22/2010 10:58:00 Document Registration [id number] 08/21/2010 16:20:00 Document Registration [id number] 07/12/2010 07:11:00 Document Registration [id number] 06/27/2010 16:20:00 Document Registration [id number] 06/12/2010 05:46:00 Document Registration [id number] 06/07/2010 09:10:00 Document Registration [id number] 05/31/2010 08:18:00 Document Registration [id number] 01/29/2010 10:43:00 Document Registration [id number] 09/25/2009 11:13:00 Document Registration [id number] 09/07/2009 08:40:00 Document Registration [id number] 08/29/2009 15:38:00 Document Registration [id number] 07/04/2009 09:57:00 Document Registration [id number] 06/05/2009 13:50:00 Document Registration [id number] 05/03/2009 07:48:00 Document Registration
== END 2016-05-31 12:45 | disposition home or self-care (01) ==
LOC: EDUNIT# 10:25 → ER 10:26
DX: R04.0 Epistaxis (principal); I48.2 Chronic atrial fibrillation; I10 Essential (primary) hypertension; E11.9 Type 2 diabetes mellitus without complications; I25.10 Atherosclerotic heart disease of native coronary artery without angina pectoris; Z79.01 Long term (current) use of anticoagulants; Z79.4 Long term (current) use of insulin; Z79.899 Other long term (current) drug therapy
CPT/HCPCS: 36415; 85007; 85027; 85610; 96360; 99285

== ENCOUNTER → 2016-07-01 | Outpatient (CLI) | payer MEDICARE, OTHER ==
--- NOTE | 2016-07-01 13:46 | Diagnostic Imaging Report ---
PROCEDURE: CT chest without contrast. TECHNIQUE: Multiple contiguous axial images were obtained through the chest without the use of intravenous contrast. INDICATION: Sleep apnea. COPD. Emphysema. Coronary artery disease. Hypoxia. COMPARISON: 03/29/2016. FINDINGS: Since the previous exam, there has been interval improved appearance to the lung parnell. There are persistent scattered ground-glass densities and a few areas of septal thickening, right greater than left. There are a few scattered micronodular densities within the right upper and middle lobes. Reference micronodule measures approximately 6 mm (image 36, series 2) and is located within the posterolateral margins of the right middle lobe. There is no effusion or pneumothorax on either side. Cardiomediastinal structures again show cardiomegaly. There is no large pericardial effusion. There is fairly diffuse calcified aortic and coronary atherosclerosis. There is persistent nodular fullness of the right hilum suggestive of hilar lymph nodes. The margins of the pulmonary vessels and hilar lymph nodes are obscured secondary to lack of IV contrast. There is, however, prominent right-sided mediastinal lymph node that measures approximately 1.4 x 1.7 cm. This is improved compared to 1.8 x 2.1 cm previously. Other mediastinal lymph nodes are also improved. No abnormal axillary adenopathy is seen. Bony structures show no acute abnormalities. Multilevel degenerative changes are noted. Included portions of the upper abdomen are unremarkable. IMPRESSION: 1. Overall improved aeration of the lungs. There is residual or recurrent lung disease, right greater than left. Findings are suggestive of pulmonary edema, although superimposed bacterial pneumonia cannot be excluded. 2. Persistent cardiomegaly. 3. Persistent, although improved mediastinal adenopathy. 4. Nodular fullness of the right hilum, which again is likely on the basis of right hilar adenopathy. Margins of the adenopathy are not well defined given lack of IV contrast. 5. Diffuse calcified aortic and coronary atherosclerosis. Dictated by: Dictated on workstation # [id number]
== END ==
LOC: RAD 11:19
PROVIDERS: ATTEND Internal Medicine Critical Care Medicine
DX: J43.8 Other emphysema (principal); I25.10 Atherosclerotic heart disease of native coronary artery without angina pectoris; N18.4 Chronic kidney disease, stage 4 (severe); R06.09 Other forms of dyspnea; R09.02 Hypoxemia; G47.30 Sleep apnea, unspecified
CPT/HCPCS: 71250

== ENCOUNTER → 2016-07-17 | Outpatient (CLI) | payer MEDICARE, OTHER ==
--- NOTE | 2016-07-17 14:05 | Diagnostic Imaging Report ---
PROCEDURE: US Carotid Duplex Bilateral. TECHNIQUE: Multiple real-time grayscale images were obtained over the carotid arteries in various projections bilaterally. Additional duplex Doppler and color Doppler images were also obtained. INDICATION: Dizziness. Arterial stenosis. FINDINGS: There is prominent atherosclerotic plaque with a calcified component seen in the common carotid artery extending to the bifurcation and the proximal internal carotid artery on both sides. This causes some shadowing which obscures small portions of the proximal ICA on both sides. Color Doppler demonstrates patency of the common carotid, internal carotid, and external carotid arteries on both sides and demonstrates antegrade flow in the right vertebral artery which appears prominent. The left vertebral artery is not seen. Peak systolic velocities in the right ICA are 428, 194, and 132 cm per second from proximal to distal with the ICA over CCA ratio up to 3.4. On the left peak systolic velocities are 237, 167, and 136 cm per second. ICA to CCA ratios are up to 1.3. IMPRESSION: 1. Prominent atherosclerotic plaque in the carotid bifurcation bilaterally. Estimated underlying stenosis in the proximal right ICA is above 70%. The estimated underlying stenosis of the proximal left ICA is around 60%. 2. The left vertebral artery is not seen. Report was faxed to office of Dr. Ivett Ludwig @ 2:04 PM/meaghan. Dictated by: Dictated on workstation # [id number]
== END ==
LOC: RAD 12:38
PROVIDERS: ATTEND Internal Medicine Cardiovascular Disease
DX: I65.23 Occlusion and stenosis of bilateral carotid arteries (principal); I25.10 Atherosclerotic heart disease of native coronary artery without angina pectoris; I50.32 Chronic diastolic (congestive) heart failure; E11.21 Type 2 diabetes mellitus with diabetic nephropathy; I10 Essential (primary) hypertension; J43.8 Other emphysema; F17.211 Nicotine dependence, cigarettes, in remission
CPT/HCPCS: 93880

== ENCOUNTER → 2016-09-05 | Outpatient (CLI) | payer MEDICARE, OTHER ==
[2016-09-05 11:29] LABS: BASOPHILS # (AUTO) 0.1 10^3/uL (0.0-0.1); BASOPHILS % (AUTO) 1 % (0-10); EOSINOPHILS # (AUTO) 0.3 10^3/uL (0.0-0.3); EOSINOPHILS % (AUTO) 3 % (0-10); LYMPHOCYTES # (AUTO) 4.3 X 10^3 (1.0-4.0); LYMPHOCYTES % (AUTO) 36 % (12-44); MEAN CORPUSCULAR HEMOGLOBIN 26 PG (25-34); MEAN CORPUSCULAR HGB CONC 31 G/DL (32-36); MEAN CORPUSCULAR VOLUME 84 FL (80-99); MEAN PLATELET VOLUME 11.2 FL (7.4-10.4); MONOCYTES # (AUTO) 1.1 X 10^3 (0.0-1.0); MONOCYTES % (AUTO) 9 % (0-12); NEUTROPHILS # (AUTO) 6.1 X 10^3 (1.8-7.8); NEUTROPHILS % (AUTO) 52 % (42-75); PLATELET COUNT 276 10^3/uL (130-400); RED BLOOD COUNT 4.53 10^6/uL (4.35-5.85); RED CELL DISTRIBUTION WIDTH 19.7 % (10.0-14.5); RETICULOCYTE % 1.96 % (0.50-2.40); WHITE BLOOD COUNT 11.9 10^3/uL (4.3-11.0)
[2016-09-05 11:39] LABS: PATH WILL NEED TO REVIEW SMEAR PATH TO REVIEW
[2016-09-05 13:16] LABS: ANISOCYTOSIS SLIGHT; BAND NEUTROPHILS 2 %; BASOPHILS % (MANUAL) 1 %; EOSINOPHILS % (MANUAL) 2 %; LYMPHOCYTES % (MANUAL) 35 %; NEUTROPHILS % (MANUAL) 50 %; POLYCHROMASIA SLIGHT; REACTIVE LYMPHOCYTES 1 %
== END ==
LOC: LAB 11:07
PROVIDERS: ATTEND Nurse Practitioner Family
DX: D72.829 Elevated white blood cell count, unspecified (principal)
CPT/HCPCS: 36415; 85007; 85027; 85045

== ENCOUNTER → 2016-09-11 | Outpatient (CLI) | payer MEDICARE, OTHER | LOC: CARD 10:28 | PROVIDERS: ATTEND Nurse Practitioner Family | DX: I48.2 Chronic atrial fibrillation (principal); R00.1 Bradycardia, unspecified; I25.10 Atherosclerotic heart disease of native coronary artery without angina pectoris; I50.32 Chronic diastolic (congestive) heart failure | CPT/HCPCS: 93225; 93226 ==

== ENCOUNTER 2016-12-12 01:35 | Emergency (ER) | payer MEDICARE, OTHER ==
[~2016-12-12] VITALS: Ht 165.1 cm; Wt 126.8 kg
[2016-12-12 02:23] LABS: INR 3.4 (0.8-1.4)
--- NOTE | 2016-12-12 02:46 | ED Lower Extremity ---
General Chief Complaint: Lower Extremity Stated Complaint: RT FOOT PAIN Nursing Triage Note: PT AMBULATED TO ROOM. PT STATES THAT FRIDAY APPROX. 1300 SHE FELL AND HIT HER HEAD ON THE FRIDGE AND NEXT THING SHE KNOWS SHE WOKE UP AND HER RIGHT TOES WERE HURTING. PT STATES THE PAIN IS GETTING WORSE. RIGHT TOES ARE BRUISED AND SWOLLEN AT THIS TIME. Nursing Sepsis Screen: No Definite Risk Source: patient Exam Limitations: no limitations History of Present Illness Time seen by provider: 01:40 Initial Comments This pleasant 71-year-old woman presents to the emergency room with complaints of right foot injury that occurred on December 09. She describes an episode of shakiness and weakness during which she fell in the kitchen injuring her right foot. She reports grabbing onto the refrigerator to keep her balance and then losing consciousness. She believes she hit her head on the stove. She did have loss of consciousness. She denies any signs or symptoms of concussion since that time. She is on warfarin. She reports having multiple episodes of near-syncope recently which she believes is related to her blood pressure. She had similar problems in March of this year. Her primary concern is the pain , swelling, and ecchymotic discoloration in her right foot. She does not wish to have her syncopal episode addressed at this time. She will follow-up with Dr. Mclaughlin and Dr. Ludwig for further evaluation. She is in rate controlled A. fib on the monitor. She presently is on warfarin therapy for prophylaxis. She would like her INR checked due to the extreme amount of bruising on her foot. Allergies and Home Medications Allergies Coded Allergies: Penicillins (Verified Allergy, Unknown, 04/02/16) Home Medications Albuterol Sulfate 18 Gm Hfa.aer.ad, 2 PUFF IH QID PRN for SHORTNESS OF BREATH, ( Reported) Allopurinol 100 Mg Tablet, 100 MG PO DAILY, (Reported) Aspirin 81 Mg Tablet.dr, 81 MG PO HS, (Reported) Calcitriol 0.25 Mcg Capsule, 0.25 MCG PO MoWeFrSa, (Reported) Cetirizine HCl 10 Mg Tablet, 10 MG PO HS, (Reported) Cholecalciferol (Vitamin D3) 1,000 Unit Capsule, 1,000 UNIT PO DAILY, (Reported) Citalopram Hydrobromide 20 Mg Tablet, 20 MG PO DAILY, (Reported) Clotrimazole/Betamethasone Dip 15 Gm Cream..g., TOP DAILY PRN for RASH, ( Reported) Cyanocobalamin (Vitamin B-12) 1,000 Mcg Tablet, 1,000 MCG PO DAILY, (Reported) Diltiazem HCl 180 Mg Cap.er.24h, 180 MG PO DAILY, (Reported) Docusate Sodium 100 Mg Capsule, 100 MG PO HS, (Reported) Furosemide 40 Mg Tablet, 40 MG PO DAILY, (Reported) Insulin NPH Human Isophane 100 Unit/1 Ml Vial, 65 UNITS SQ BID, (Reported) Insulin Regular, Human 100 Unit/1 Ml Vial, 35 UNITS SQ DAILY, (Reported) Insulin Regular, Human 100 Unit/1 Ml Vial, 30 UNIT SC HS, (Reported) Levothyroxine Sodium 150 Mcg Tablet, 150 MCG PO DAILY, (Reported) Montelukast Sodium 10 Mg Tablet, 10 MG PO HS, (Reported) Nitroglycerin 0.4 Mg Tab.subl, 0.4 MG SL UD PRN for CHEST PAIN, (Reported) Oxycodone HCl/Acetaminophen 1 Each Tablet, 1 TAB PO Q4H PRN for PAIN, (Reported) Pantoprazole Sodium 40 Mg Tablet.dr, 40 MG PO DAILY, (Reported) Simvastatin 40 Mg Tablet, 20 MG PO HS, (Reported) Vitamin B Complex 1 Each Tablet, 1 TAB PO DAILY, (Reported) Constitutional: see HPI EENTM: no symptoms reported Respiratory: no symptoms reported Cardiovascular: see HPI Gastrointestinal: no symptoms reported Genitourinary: no symptoms reported : No Musculoskeletal: see HPI Skin: see HPI Psychiatric/Neurological: See HPI Past Vbhjifv-Aukqmd-Xzfnqg Hx Patient Social History Alcohol Use: Denies Use Recreational Drug Use: No Smoking Status: Former Smoker Type Used: Cigarettes Former Smoker, Quit: Mar 26, 2010 2nd Hand Smoke Exposure: No Recent Foreign Travel: No Contact w/Someone Who Travel: No Recent Infectious Disease Expo: No Recent Hopitalizations: Yes (HEART CATH, SEVERE ANEMIA) Physical Abuse: No Sexual Abuse: No Immunizations Up To Date PED Vaccines UTD: No Date of Pneumonia Vaccine: Dec 03, 2013 Date of Influenza Vaccine: Dec 04, 2015 Seasonal Allergies Seasonal Allergies: No Surgeries History of Surgeries: Yes Surgeries: Adenoidectomy, Appendectomy, Cardiac, Coronary Stent, Gallbladder, Hysterectomy, Joint Replacement, Oophorectomy, Orthopedic, Thyroidectomy, Tonsillectomy, Vascular Surgery Respiratory History of Respiratory Disorde: Yes (WEARS O2 CONTINUOUSLY) Respiratory Disorders: Sleep Apnea, COPD, Emphysema Currently Using CPAP: Yes Cardiovascular History of Cardiac Disorders: Yes Cardiac Disorders: Atrial Fibrillation, Chronic Edema/Swelling, Coronary Artery Disease, Heart Attack, High Cholesterol, Hypertension, Peripheral Vascular Neurological History of Neurological Disord: No Reproductive System Hx Reproductive Disorders: No Sexually Transmitted Disease: No Genitourinary History of Genitourinary Disor: Yes Genitourinary Disorders: Renal Failure Gastrointestinal History of Gastrointestinal Di: Yes Gastrointestinal Disorders: Ulcer Musculoskeletal History of Musculoskeletal Dis: Yes Musculoskeletal Disorders: Arthritis Endocrine History of Endocrine Disorders: Yes (S/P THYROIDECTOMY) Endocrine Disorders: Diabetes, Insulin dep, Hypothyroidsim HEENT History of HEENT Disorders: No Cancer History of Cancer: No Psychosocial History of Psychiatric Problem: No Behavioral Health Disorders: Anxiety, Depression Suicide Risk Score: 0 Integumentary History of Skin or Integumenta: No Blood Transfusions History of Blood Disorders: No Adverse Reaction to a Blood Tr: No (HAS HAD BLOOD WITH NO REACTION) Family Medical History Significant Family History: Heart Disease, COPD, Diabetes, Hypertension Family Medial History: Diabetes mellitus G8 SISTER, Age:57 Respiratory disorder G8 BROTHER, Age:75 Physical Exam Vital Signs Vital Sign - Last 12Hours 12/12/16 01:38 Temp 98.2 Pulse 84 Resp 20 B/P (MAP) 120/93 Pulse Ox 95 O2 Delivery Nasal Cannula O2 Flow Rate 2.00 Capillary Refill : Less Than 3 Seconds General Appearance: WD/WN, no apparent distress, obese HEENT: PERRL/EOMI, normal ENT inspection, pharynx normal Neck: normal inspection Cardiovascular: no edema, no murmur, irregularly irregular Respiratory: lungs clear, normal breath sounds, no respiratory distress, no accessory muscle use Gastrointestinal: non tender, soft Legs: bilateral leg swelling, bilateral leg other (chronic skin changes with erythema to the anterior lower legs bilaterally) Knees: bilateral knee normal inspection, bilateral knee no evidence of injury Ankles: bilateral ankle normal inspection, bilateral ankle no evidence of injury Feet: right foot ecchymosis, right foot limited range of motion, right foot soft tissue tenderness, right foot swelling, right foot other (swelling, tenderness, and ecchymosis to the lateral distal right foot) Neurologic/Tendon: normal sensation, normal motor functions Neurologic/Psychiatric: 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-XII nml as tested, no motor/sensory deficits, alert, normal mood/affect, oriented x 3 Skin: warm/dry, ecchymosis (dorsal distal right foot) Date of ETT Placement: Apr 03, 2016 Progress/Results/Core Measures Results/Orders Lab Results Laboratory Tests Test 12/12/16 02:00 Range/Units Prothrombin Time 34.0 H 12.2-14.7 SEC INR Comment 3.4 H 0.8-1.4 My Orders Orders - ERIN COOK MD Protime With Inr (12/12/16 01:50) Foot, Right, 3 View (12/12/16 01:50) Monitor-Rhythm Ecg Trace Only (12/12/16 01:51) Vital Signs/I&O Vital Sign - Last 12Hours 12/12/16 12/12/16 01:38 02:47 Temp 98.2 98.2 Pulse 84 84 Resp 20 20 B/P (MAP) 120/93 Pulse Ox 95 95 O2 Delivery Nasal Cannula Nasal Cannula O2 Flow Rate 2.00 2.00 Blood Pressure Mean: 102 Progress Note : Progress Note Patient was found to have fractures of the third and fourth metatarsal. She was placed in a boot and advised to follow-up with her orthopedist. She already has a hydrocodone prescription at home. She was strongly encouraged to seek further evaluation for her syncopal episode. She plans to follow up with Dr. Rodriguez and Dr. Morris. INR was checked due to the bruising. Her INR was supratherapeutic and advised to skip her next dose. Diagnostic Imaging Diagonstic Imaging: Xray Comments X-rays viewed by me. Reports not yet available. She has fractures at the distal end of the third and fourth metatarsals. Departure Impression Impression: Primary Impression: Fracture of third metatarsal bone of right foot Qualified Codes: S92.331A - Displaced fracture of third metatarsal bone, right foot, initial encounter for closed fracture Additional Impressions: Fall with injury Qualified Codes: W19.XXXA - Unspecified fall, initial encounter Fracture of fourth metatarsal bone of right foot Qualified Codes: S92.341A - Displaced fracture of fourth metatarsal bone, right foot, initial encounter for closed fracture Syncope Qualified Codes: R55 - Syncope and collapse Supratherapeutic INR Disposition: HOME, SELF-CARE Condition: Stable Departure-Patient Inst. Referrals: PHIL MCLAUGHLIN MD (PCP/Family) Primary Care Physician Patient Instructions: Foot Fracture (DC), Syncope (Fainting) Add. Discharge Instructions: Rest and elevation should he help with pain and swelling. You may take your hydrocodone as previously prescribed. Follow-up with your orthopedist as soon as possible. Your INR is a little too high for the recommended therapeutic range. Please skip your next dose and then resume as previously prescribed. Use your boot whenever active and avoid weightbearing as much as possible. Always walk with your walker. Follow-up with your primary care provider and your braille teacher as soon as possible regarding your episodes of syncope and near syncope. All discharge instructions reviewed with patient and/or family. Voiced understanding. Copy Copies To 1: KEARA LUDWIG MD FACP FAC CCDS Copies To 2: PHIL MCLAUGHLIN MD, JOSHUA T MD Dec 12, 2016 02:46
[2016-12-12 02:47] VITALS: BP 120/93
--- NOTE | 2016-12-12 06:33 | Diagnostic Imaging Report ---
INDICATION: Fall. Pain and bruising. COMPARISON: None. FINDINGS: 3 views of the right foot demonstrate were obtained. There are nondisplaced fractures of the distal ends of the third and fourth metatarsals. There is no intra-articular extension. Other remaining bony structures are intact. Joint spaces are maintained. Soft tissue structures are unremarkable. There is calcified arteriosclerosis. No unexpected radiopaque foreign bodies are seen. IMPRESSION: 1. Acute appearing fractures of the distal third and fourth metatarsals. Dictated by: Dictated on workstation # [id number]
== END 2016-12-12 02:47 | disposition home or self-care (01) ==
LOC: EDUNIT# 01:35 → ER 01:37
DX: S92.331A Displaced fracture of third metatarsal bone, right foot, initial encounter for closed fracture (principal); S92.341A Displaced fracture of fourth metatarsal bone, right foot, initial encounter for closed fracture; R55 Syncope and collapse; G47.30 Sleep apnea, unspecified; J43.9 Emphysema, unspecified; I48.91 Unspecified atrial fibrillation; I25.10 Atherosclerotic heart disease of native coronary artery without angina pectoris; I25.2 Old myocardial infarction; E11.51 Type 2 diabetes mellitus with diabetic peripheral angiopathy without gangrene; I73.9 Peripheral vascular disease, unspecified; F41.9 Anxiety disorder, unspecified; F32.9 Major depressive disorder, single episode, unspecified; I10 Essential (primary) hypertension; E78.00 Pure hypercholesterolemia, unspecified; Z51.81 Encounter for therapeutic drug level monitoring; Z90.710 Acquired absence of both cervix and uterus; Z90.89 Acquired absence of other organs; Z87.19 Personal history of other diseases of the digestive system; Z95.5 Presence of coronary angioplasty implant and graft; Z82.49 Family history of ischemic heart disease and other diseases of the circulatory system; Z90.49 Acquired absence of other specified parts of digestive tract; Z79.01 Long term (current) use of anticoagulants; Z79.82 Long term (current) use of aspirin; Z79.4 Long term (current) use of insulin; Z87.891 Personal history of nicotine dependence; W01.198A Fall on same level from slipping, tripping and stumbling with subsequent striking against other object, initial encounter; Y92.000 Kitchen of unspecified non-institutional (private) residence as the place of occurrence of the external cause
CPT/HCPCS: 36415; 73630; 85610; 93041